=== PATIENT | female | born 1935 | race Caucasian/White ===

== ENCOUNTER → 2018-01-27 | Outpatient (CLI) | payer MEDICARE ==
--- NOTE | 2018-01-28 07:39 | MR ---
EXAMINATION TYPE: MR lumbar spine wo con DATE OF EXAM: 01/27/2018 COMPARISON: NONE HISTORY: Back pain CONTRAST: 0 mL intravenous Gadavist. TECHNIQUE: Multiplanar, multisequence images of the lumbar spine were acquired. FINDINGS: L5-S1: No significant disc bulge or disc herniation. No spinal canal stenosis. No foraminal stenosi s. . L4-L5: No significant disc bulge or disc herniation. No spinal canal stenosis. No foraminal stenosi s. . L3-L4: Mild disc bulging is anterior thecal sac flattening. Facet hypertrophy with mild ligamentum fl avum laxity is present with posterior lateral thecal sac compression. No stenosis is present. Foramen are patent. L2-L3: Broad-based disc bulge has mild anterior thecal sac compression. Facet hypertrophy is present with posterior lateral thecal sac compression. Some lateral canal narrowing is present. No AP spinal canal stenosis is present. Neural foramen are patent L1-L2: Minimal disc bulging with anterior thecal sac flattening is noted. No spinal canal stenosis is present. No foraminal stenosis. . T12-L1: No significant disc bulge or disc herniation. No spinal canal stenosis. No foraminal stenos is. . Cord terminates at the L1-L2 level. Cortical renal cysts are noted bilaterally IMPRESSION: 1. Diffuse minimal disc bulging and disc desiccation throughout the lumbar spine. 2. Mild disc bulge is greatest at L3-4 and L2-3 with mild anterior thecal sac flattening
== END | disposition home or self-care (01) ==
LOC: RADMRIMAIN 12:45
PROVIDERS: ATTEND Family Medicine
DX: M51.16 Intervertebral disc disorders with radiculopathy, lumbar region (principal)
CPT/HCPCS: 72148

== ENCOUNTER 2019-04-16 19:40 | Inpatient (IN) | payer MEDICARE ==
[2019-04-16] MEDS ORDERED: SODIUM CHLORIDE 0.9% 500 ML 500 ML IV STA (20:11)
[2019-04-16] MEDS ORDERED: ONDANSETRON 4 MG/2 ML VIAL IVP STA (20:11)
[2019-04-16] MEDS ORDERED: MORPHINE SULFATE 4 MG/ML SYRINGE IV STA (20:11)
--- NOTE | 2019-04-16 20:32 | ED ---
General Adult HPI - General Chief complaint: Abdominal Pain Stated complaint: Abd pain Time Seen by Provider: 04/16/19 20:07 Source: patient, Caregiver Mode of arrival: wheelchair Limitations: no limitations - History of Present Illness Initial comments: 83 -year-old female presenting with right-sided abdominal pain and right flank pain. Patient's symptoms began today at approximately 4 PM. Patient reports nausea and several episodes vomiting. Denies change in her bowels, no diarrhea, no constipation. No dysuria or hematuria. No fever or chills. No upper abdominal pain. Pain is localized to the right flank and right lower quadrant. No chest pain or dyspnea. - Related Data Home Medications Medication Instructions Recorded Confirmed Ranitidine HCl [Zantac] 150 mg PO DAILY 09/26/14 04/16/19 Ergocalciferol [Vitamin D2 50,000 unit PO FR 04/16/19 04/16/19 (DRISDOL)] Lisinopril [Zestril] 10 mg PO BID 04/16/19 04/16/19 amLODIPine [Norvasc] 5 mg PO DAILY 04/16/19 04/16/19 guaiFENesin [Mucinex] 1,200 mg PO Q12HR 04/16/19 04/16/19 Previous Rx's Medication Instructions Recorded Hydrocodone/Acetaminophen [[place] 1 - 2 each PO Q6HR PRN #40 tab 08/27/15 5-325] Allergies Allergy/AdvReac Type Severity Reaction Status Date / Time Penicillins Allergy Rash/Hives Verified 04/16/19 20:20 Review of Systems ROS Statement: Those systems with pertinent positive or pertinent negative responses have been documented in the HPI. ROS Other: All systems not noted in ROS Statement are negative. Past Medical History Past Medical History: Eye Disorder, GERD/Reflux, Osteoarthritis (OA) Additional Past Medical History / Comment(s): chronic sinus problems. limited mobility. HX LT CATARACT History of Any Multi-Drug Resistant Organisms: None Reported Past Surgical History: Hernia Repair, Hysterectomy, Orthopedic Surgery Additional Past Surgical History / Comment(s): LT CATARACT REMOVED, LT EYE SX. RIGHT HIP FRACTURE (ORIF AT [facility]). KNEE ARTHRO X2. Past Anesthesia/Blood Transfusion Reactions: No Reported Reaction Past Psychological History: No Psychological Hx Reported Smoking Status: Never smoker - Past Family History Son(s) Family Medical History: Cancer General Exam Limitations: no limitations General appearance: alert, in no apparent distress Head exam: Present: atraumatic, normocephalic Eye exam: Present: normal appearance, PERRL ENT exam: Present: normal exam Neck exam: Present: normal inspection. Absent: tenderness, meningismus Respiratory exam: Present: normal lung sounds bilaterally. Absent: respiratory distress, wheezes Cardiovascular Exam: Present: regular rate, normal rhythm GI/Abdominal exam: Present: soft, tenderness. Absent: distended, guarding Extremities exam: Present: normal inspection, normal capillary refill. Absent: pedal edema Back exam: Present: CVA tenderness (R) Neurological exam: Present: alert, oriented X3 Psychiatric exam: Present: normal affect, normal mood Skin exam: Present: warm, dry, intact. Absent: cyanosis, diaphoretic Course Vital Signs 04/16/19 04/16/19 04/16/19 19:57 21:45 22:50 Temperature 98.6 F 98.8 F 99.8 F H Pulse Rate 82 97 89 Respiratory 22 16 16 Rate Blood Pressure 142/73 160/67 146/73 O2 Sat by Pulse 94 L 98 Oximetry 04/17/19 00:00 Temperature Pulse Rate 75 Respiratory 16 Rate Blood Pressure 118/63 O2 Sat by Pulse 94 L Oximetry Medical Decision Making - Medical Decision Making 83-year-old female with right-sided flank pain, right lower abdominal pain. Workup was initiated emergency partner, patient has elevated white blood cell count 15.3, stable hemoglobin, normal kidney function. She hasn't normal lactic acid at 1. Urinalysis shows 31 red cells, 120 white cells, nitrate positive. CT is performed, shows a 4 mm stone at the UVJ with mild hydronephrosis. Given the elevated white count in the patient's age she is admitted for IV antibiotics, IV fluids. Urology will be placed on consult. - Lab Data Result diagrams: 04/16/19 21:10 04/16/19 21:10 Lab Results 04/16/19 04/16/19 04/16/19 Range/Units 21:10 21:10 21:10 WBC 15.3 H (3.8-10.6) k/uL RBC 4.53 (3.80-5.40) m/uL Hgb 13.6 (11.4-16.0) gm/dL Hct 40.6 (34.0-46.0) % MCV 89.7 (80.0-100.0) fL MCH 29.9 (25.0-35.0) pg MCHC 33.3 (31.0-37.0) g/dL RDW 14.5 (11.5-15.5) % Plt Count 208 (150-450) k/uL Neutrophils % 93 % Lymphocytes % 4 % Monocytes % 2 % Eosinophils % 1 % Basophils % 0 % Neutrophils # 14.2 H (1.3-7.7) k/uL Lymphocytes # 0.6 L (1.0-4.8) k/uL Monocytes # 0.3 (0-1.0) k/uL Eosinophils # 0.1 (0-0.7) k/uL Basophils # 0.0 (0-0.2) k/uL PT (9.0-12.0) sec INR (<1.2) APTT (22.0-30.0) sec Sodium 138 (137-145) mmol/L Potassium 4.1 (3.5-5.1) mmol/L Chloride 105 (98-107) mmol/L Carbon Dioxide 25 (22-30) mmol/L Anion Gap 8 mmol/L BUN 23 H (7-17) mg/dL Creatinine 0.92 (0.52-1.04) mg/dL Est GFR (CKD-EPI)AfAm 67 (>60 ml/min/1.73 sqM) Est GFR (CKD-EPI)NonAf 58 (>60 ml/min/1.73 sqM) Glucose 150 H (74-99) mg/dL Plasma Lactic Acid Handy 1.0 (0.7-2.0) mmol/L Calcium 9.5 (8.4-10.2) mg/dL Total Bilirubin 0.5 (0.2-1.3) mg/dL AST 20 (14-36) U/L ALT 9 (9-52) U/L Alkaline Phosphatase 107 (38-126) U/L Total Protein 7.2 (6.3-8.2) g/dL Albumin 4.0 (3.5-5.0) g/dL Amylase 57 (30-110) U/L Lipase 185 (23-300) U/L Urine Color Urine Appearance (Clear) Urine pH (5.0-8.0) Ur Specific [place] (1.001-1.035) Urine Protein (Negative) Urine Glucose (UA) (Negative) Urine Ketones (Negative) Urine Blood (Negative) Urine Nitrite (Negative) Urine Bilirubin (Negative) Urine Urobilinogen (<2.0) mg/dL Ur Leukocyte Esterase (Negative) Urine RBC (0-5) /hpf Urine WBC (0-5) /hpf Ur Squamous Epith Cells (0-4) /hpf Calcium Oxalate Crystal (None) /hpf Urine Bacteria (None) /hpf Urine Mucus (None) /hpf 04/16/19 04/16/19 Range/Units 21:10 23:40 WBC (3.8-10.6) k/uL RBC (3.80-5.40) m/uL Hgb (11.4-16.0) gm/dL Hct (34.0-46.0) % MCV (80.0-100.0) fL MCH (25.0-35.0) pg MCHC (31.0-37.0) g/dL RDW (11.5-15.5) % Plt Count (150-450) k/uL Neutrophils % % Lymphocytes % % Monocytes % % Eosinophils % % Basophils % % Neutrophils # (1.3-7.7) k/uL Lymphocytes # (1.0-4.8) k/uL Monocytes # (0-1.0) k/uL Eosinophils # (0-0.7) k/uL Basophils # (0-0.2) k/uL PT 9.4 (9.0-12.0) sec INR 0.9 (<1.2) APTT 21.6 L (22.0-30.0) sec Sodium (137-145) mmol/L Potassium (3.5-5.1) mmol/L Chloride (98-107) mmol/L Carbon Dioxide (22-30) mmol/L Anion Gap mmol/L BUN (7-17) mg/dL Creatinine (0.52-1.04) mg/dL Est GFR (CKD-EPI)AfAm (>60 ml/min/1.73 sqM) Est GFR (CKD-EPI)NonAf (>60 ml/min/1.73 sqM) Glucose (74-99) mg/dL Plasma Lactic Acid Handy (0.7-2.0) mmol/L Calcium (8.4-10.2) mg/dL Total Bilirubin (0.2-1.3) mg/dL AST (14-36) U/L ALT (9-52) U/L Alkaline Phosphatase (38-126) U/L Total Protein (6.3-8.2) g/dL Albumin (3.5-5.0) g/dL Amylase (30-110) U/L Lipase (23-300) U/L Urine Color Yellow Urine Appearance Cloudy H (Clear) Urine pH 7.5 (5.0-8.0) Ur Specific [place] >1.050 H (1.001-1.035) Urine Protein Trace H (Negative) Urine Glucose (UA) Negative (Negative) Urine Ketones Negative (Negative) Urine Blood Moderate H (Negative) Urine Nitrite Positive H (Negative) Urine Bilirubin Negative (Negative) Urine Urobilinogen <2.0 (<2.0) mg/dL Ur Leukocyte Esterase Large H (Negative) Urine RBC 31 H (0-5) /hpf Urine WBC 120 H (0-5) /hpf Ur Squamous Epith Cells 1 (0-4) /hpf Calcium Oxalate Crystal Rare H (None) /hpf Urine Bacteria Rare H (None) /hpf Urine Mucus Rare H (None) /hpf Disposition Clinical Impression: UTI (urinary tract infection), Renal calculus, right Disposition: ADMITTED IP TO THIS HOSP Condition: Stable Is patient prescribed a controlled substance at d/c from ED?: No Referrals: Ravin Hensley MD [Primary Care Provider] - 1-2 days Decision to Admit Reason: Admit from EC Decision Date: 04/17/19 Decision Time: 00:25
[2019-04-16 21:21] LABS: Basophils % (A) 0 %; Eosinophils # (A) 0.1 k/uL (0-0.7); Eosinophils % (A) 1 %; HCT 40.6 % (34.0-46.0); HGB 13.6 gm/dL (11.4-16.0); Lymphocytes # (A) 0.6 k/uL (1.0-4.8); Lymphocytes % (A) 4 %; MCH 29.9 pg (25.0-35.0); MCHC 33.3 g/dL (31.0-37.0); MCV 89.7 fL (80.0-100.0); Mean Platelet Volume 7.6; Monocytes # (A) 0.3 k/uL (0-1.0); Monocytes % (A) 2 %; Neutrophils # (A) 14.2 k/uL (1.3-7.7); Neutrophils % (A) 93 %; Platelet Count 208 k/uL (150-450); RBC 4.53 m/uL (3.80-5.40); RDW 14.5 % (11.5-15.5); WBC 15.3 k/uL (3.8-10.6)
--- NOTE | 2019-04-16 21:33 | XR ---
EXAMINATION TYPE: XR KUB DATE OF EXAM: 04/16/2019 COMPARISON: NONE HISTORY: Right lower quadrant pain TECHNIQUE: 2 views supine FINDINGS: There is no sign of intestinal obstruction or pneumoperitoneum. Fecal pattern is normal. Th ere is right hip prosthesis. There are no pathologic calcifications over the kidneys. IMPRESSION: Nonacute abdomen.
[2019-04-16 21:39] LABS: Calcium 9.5 mg/dL (8.4-10.2); Potassium 4.1 mmol/L (3.5-5.1); Total Bilirubin 0.5 mg/dL (0.2-1.3); Total Protein 7.2 g/dL (6.3-8.2)
[2019-04-16 21:42] LABS: INR 0.9 (<1.2); Prothrombin Time 9.4 sec (9.0-12.0)
[2019-04-16 21:48] LABS: Partial Thromboplastin Time 21.6 sec (22.0-30.0)
--- NOTE | 2019-04-16 22:28 | CT ---
EXAM: CT Abdomen and Pelvis With Intravenous Contrast CLINICAL HISTORY: Right lower quadrant pain TECHNIQUE: Axial computed tomography images of the abdomen and pelvis with intravenous contrast. CTDI is 0.085, 0.085, 14.2, 13 mGy and DLP is 1285 mGy-cm. This CT exam was performed using one or more of the following dose reduction techniques: automated exposure control, adjustment of the mA and/or kV according to patient size, and/or use of iterative reconstruction technique. COMPARISON: No relevant prior studies available. FINDINGS: Lung bases: Bibasilar atelectasis and or scarring. Calcifications of coronary arteries and aortic valve leaflets. ABDOMEN: Liver: Low-density lesion within the left hepatic lobe measuring up to 10 mm, which is nonspecific. Gallbladder and bile ducts: Distended gallbladder with gallstones. Pancreas: Unremarkable. Spleen: Unremarkable. Adrenals: Unremarkable. Kidneys and ureters: Suspect 4 mm calculus at the right UVJ which causes mild hydroureteronephrosis and delayed nephrogram. Note findings are limited secondary to artifact from right hip arthroplasty. Additional nonobstructing calculi within the right kidney. Probable cysts within both kidneys. No hydronephrosis. Stomach and bowel: Noninflamed colonic diverticulosis. PELVIS: Appendix: Appendix is unremarkable. Bladder: Unremarkable. Reproductive: Uterus is surgically absent. ABDOMEN and PELVIS: Intraperitoneal space: Unremarkable. Bones/joints: Total right hip arthroplasty. No acute fracture. No dislocation. Soft tissues: Unremarkable. Vasculature: Vascular calcifications. No abdominal aortic aneurysm. Lymph nodes: Unremarkable. IMPRESSION: 1. Distended gallbladder with gallstones. No CT evidence of acute cholecystitis. 2. Suspect 4 mm calculus at the right UVJ which causes mild hydroureteronephrosis and delayed nephrogram. Note findings are limited secondary to artifact from right hip arthroplasty. 3. Additional nonobstructing calculi within the right kidney.
[2019-04-16] MEDS ORDERED: KETOROLAC 30 MG/ML 1 ML VIAL IVP STA (22:32)
[2019-04-16 23:54] LABS: Appearance,Urine Cloudy (Clear); Bacteria,Urine Rare /hpf; Bilirubin,Urine Negative (Negative); Blood,Urine Moderate (Negative); Calcium Oxalate Crystals,Urine Rare /hpf; Color,Urine Yellow; Glucose,Urine (UA) Negative (Negative); Ketones,Urine Negative (Negative); Leukocyte Esterase,Urine Large (Negative); Mucus,Urine Rare /hpf; Nitrite,Urine Positive (Negative); PH, Urine 7.5 (5.0-8.0); Protein,Urine Trace (Negative); RBC,Urine 31 /hpf (0-5); Squamous Epithelial Cell,Urine 1 /hpf (0-4); Urobilinogen,Urine <2.0 mg/dL (<2.0); WBC,Urine 120 /hpf (0-5)
[2019-04-16 23:55] LABS: Specific Gravity,Urine >1.050 (1.001-1.035)
[2019-04-17] MEDS ORDERED: SODIUM CHLORIDE 0.9% 500 ML 500 ML IV ONE (00:01)
[2019-04-17] MEDS ORDERED: LEVOFLOXACIN 500MG-D5W PMX 500 MG in DEXTROSE/WATER 1 100ML.BAG IVPB STA (00:19)
[2019-04-17] MEDS ORDERED: TAMSULOSIN 0.4 MG CAP.ER.24H PO STA (00:19)
[2019-04-17] MEDS ORDERED: MORPHINE SULFATE 4 MG/ML SYRINGE IV PRN (00:20)
[2019-04-17] MEDS ORDERED: ACETAMINOPHEN TAB 325 MG TAB PO PRN (00:20)
[2019-04-17] MEDS ORDERED: NALOXONE 0.4 MG/ML 1 ML VIAL IV PRN (00:20)
[2019-04-17] MEDS: SODIUM CHLORIDE 0.9% 1,000 ML IV SCH ×2 (01:12→13:39)
[2019-04-17] MEDS ORDERED: HYDROcodone/APAP 5-325MG 1 EACH TAB PO PRN (12:44)
--- NOTE | 2019-04-17 16:47 | P.GSCN ---
History of Present Illness Consult date: 04/17/19 Reason for Consult: Right ureteral calculus History of present illness: The patient is an 83-year-old female who developed discomfort in her right flank and right lower quadrant associated with nausea and urgency to void yesterday. The pain worsened and she came to the emergency room where she was evaluated later in the day. She was noted to have microscopic hematuria and pyuria. Computed tomography scan of the abdomen and pelvis with IV contrast identified a 2.5 x 4 mm calculus in the right ureter which appeared to be adjacent or within the bladder wall. The patient was admitted for further evaluation and pain control. She has remained afebrile. She has been started on Levaquin. She says that she no longer has the urge to void and her flank and right lower quadrant pain almost gone. She has experienced no gross hematuria or dysuria. The patient has no previous history of urolithiasis. She believes she may have had a urinary tract infection 2 or 3 years ago. Review of Systems - Constitutional Denies chills, Denies fever - Gastrointestinal Reports as per HPI - Genitourinary Genitourinary: Reports as per HPI Past Medical History Past Medical History: GERD/Reflux, Hypertension Additional Past Medical History / Comment(s): Chronic sinus problems, limited mobility (wheelchair) pt states d/t surgical complications. History of Any Multi-Drug Resistant Organisms: None Reported Past Surgical History: Bladder Surgery (Cystocele 2), Hernia Repair, Hysterectomy, Orthopedic Surgery Additional Past Surgical History / Comment(s): R leg fracture with surgery/hardw are-since removed, R hip fx with ORIF, R knee arthroscopies, abdominal hernia repair, ESS/septoplasty, bladder suspension. Past Anesthesia/Blood Transfusion Reactions: No Reported Reaction Smoking Status: Never smoker - Past Family History Son(s) Family Medical History: Cancer Father Family Medical History: COPD Mother Family Medical History: No Reported History Additional Family Medical History / Comment(s): Mother was healthy Medications and Allergies Home Medications Medication Instructions Recorded Confirmed Type Ranitidine HCl [Zantac] 150 mg PO DAILY 09/26/14 04/16/19 History Hydrocodone/Acetaminophen [[place] 1 - 2 each PO Q6HR PRN #40 tab 08/27/15 04/16/19 Rx 5-325] Ergocalciferol [Vitamin D2 50,000 unit PO FR 04/16/19 04/16/19 History (DRISDOL)] Lisinopril [Zestril] 10 mg PO BID 04/16/19 04/16/19 History amLODIPine [Norvasc] 5 mg PO DAILY 04/16/19 04/16/19 History guaiFENesin [Mucinex] 1,200 mg PO Q12HR 04/16/19 04/16/19 History Allergies Allergy/AdvReac Type Severity Reaction Status Date / Time Penicillins Allergy Rash/Hives Verified 04/16/19 20:20 Surgical - Exam Vital Signs Temp Pulse Resp BP 98.6 F 82 22 142/73 04/16/19 19:57 04/16/19 19:57 04/16/19 19:57 04/16/19 19:57 - General well developed, well nourished, no distress, obese - ENT no hearing loss - Neck no masses, no lymphadectomy - Respiratory normal respiratory effort - Abdomen Abdomen: soft, non tender, no organomegaly Results - Labs 04/16/19 21:10 04/16/19 21:10 Abnormal Lab Results - Last 24 Hours (Table) 04/16/19 04/16/19 04/16/19 Range/Units 21:10 21:10 21:10 WBC 15.3 H (3.8-10.6) k/uL Neutrophils # 14.2 H (1.3-7.7) k/uL Lymphocytes # 0.6 L (1.0-4.8) k/uL APTT 21.6 L (22.0-30.0) sec BUN 23 H (7-17) mg/dL Glucose 150 H (74-99) mg/dL Urine Appearance (Clear) Ur Specific [place] (1.001-1.035) Urine Protein (Negative) Urine Blood (Negative) Urine Nitrite (Negative) Ur Leukocyte Esterase (Negative) Urine RBC (0-5) /hpf Urine WBC (0-5) /hpf Calcium Oxalate Crystal (None) /hpf Urine Bacteria (None) /hpf Urine Mucus (None) /hpf 04/16/19 Range/Units 23:40 WBC (3.8-10.6) k/uL Neutrophils # (1.3-7.7) k/uL Lymphocytes # (1.0-4.8) k/uL APTT (22.0-30.0) sec BUN (7-17) mg/dL Glucose (74-99) mg/dL Urine Appearance Cloudy H (Clear) Ur Specific [place] >1.050 H (1.001-1.035) Urine Protein Trace H (Negative) Urine Blood Moderate H (Negative) Urine Nitrite Positive H (Negative) Ur Leukocyte Esterase Large H (Negative) Urine RBC 31 H (0-5) /hpf Urine WBC 120 H (0-5) /hpf Calcium Oxalate Crystal Rare H (None) /hpf Urine Bacteria Rare H (None) /hpf Urine Mucus Rare H (None) /hpf Microbiology - Last 24 Hours (Table) 04/16/19 23:40 Urine Culture - Preliminary Urine,Voided Diabetes panel 04/16/19 Range/Units 21:10 Sodium 138 (137-145) mmol/L Potassium 4.1 (3.5-5.1) mmol/L Chloride 105 (98-107) mmol/L Carbon Dioxide 25 (22-30) mmol/L BUN 23 H (7-17) mg/dL Creatinine 0.92 (0.52-1.04) mg/dL Glucose 150 H (74-99) mg/dL Calcium 9.5 (8.4-10.2) mg/dL AST 20 (14-36) U/L ALT 9 (9-52) U/L Alkaline Phosphatase 107 (38-126) U/L Total Protein 7.2 (6.3-8.2) g/dL Albumin 4.0 (3.5-5.0) g/dL Calcium panel 04/16/19 Range/Units 21:10 Calcium 9.5 (8.4-10.2) mg/dL Albumin 4.0 (3.5-5.0) g/dL Pituitary panel 04/16/19 Range/Units 21:10 Sodium 138 (137-145) mmol/L Potassium 4.1 (3.5-5.1) mmol/L Chloride 105 (98-107) mmol/L Carbon Dioxide 25 (22-30) mmol/L BUN 23 H (7-17) mg/dL Creatinine 0.92 (0.52-1.04) mg/dL Glucose 150 H (74-99) mg/dL Calcium 9.5 (8.4-10.2) mg/dL Adrenal panel 04/16/19 Range/Units 21:10 Sodium 138 (137-145) mmol/L Potassium 4.1 (3.5-5.1) mmol/L Chloride 105 (98-107) mmol/L Carbon Dioxide 25 (22-30) mmol/L BUN 23 H (7-17) mg/dL Creatinine 0.92 (0.52-1.04) mg/dL Glucose 150 H (74-99) mg/dL Calcium 9.5 (8.4-10.2) mg/dL Total Bilirubin 0.5 (0.2-1.3) mg/dL AST 20 (14-36) U/L ALT 9 (9-52) U/L Alkaline Phosphatase 107 (38-126) U/L Total Protein 7.2 (6.3-8.2) g/dL Albumin 4.0 (3.5-5.0) g/dL - Imaging CT scan - abdomen: image reviewed Assessment and Plan (1) Right ureteral calculus Narrative/Plan: The patient had a 2.5 x 4 mm calculus at the most distal portion of the right ureter at the time of her computed tomography scan yesterday. Her pain and urgency have improved and it is possible that she has passed the calculus into her bladder. It's unclear whether the patient had a urinary tract infection however she did not have any symptoms of infection as far as dysuria and she has remained afebrile. If the patient remains comfortable she could be discharged on an oral antibiotic running results of her urine culture. The likelihood of spontaneous passage of a calculus this size and location is over 95% and in view of this even if she continues to have some discomfort no urologic intervention is planned in the immediate future. Current Visit: Yes Status: Acute Code(s): N20.1 - CALCULUS OF URETER SNOMED Code(s): 76256607 (2) Renal calculus, right Current Visit: Yes Status: Acute Code(s): N20.0 - CALCULUS OF KIDNEY SNOMED Code(s): 21658560
[2019-04-17] MEDS: guaiFENesin 600 MG TABLET.ER PO SCH (21:48)
[2019-04-17] MEDS: ENOXAPARIN 40 MG/0.4 ML SYRINGE SQ SCH (21:48)
[2019-04-17] MEDS: LISINOPRIL 10 MG TAB PO SCH (21:48)
--- NOTE | 2019-04-17 23:17 | HP ---
HISTORY AND PHYSICAL DATE OF ADMISSION: 04/17/2019 DATE OF SERVICE: 04/17/2019 PRESENTING COMPLAINT: Right flank pain. HISTORY OF PRESENTING COMPLAINT: This is a very pleasant 83-year-old patient of Dr. Hensley from [place]. Chronic stable medical conditions include GERD, hypertension, chronic sinus trouble, medical debility. Normally she uses a wheelchair. The patient around 5 p.m. started having severe right abdominal pain that was stabbing and sharp, to the point she could not walk. There was no fever or chills. No nausea or vomiting. Appetite is maintained. Pain was localized and did not radiate down. Patient presented to the ER. The patient was found to have a stone in the right UV junction with mild hydronephrosis. Admitted for the same. Urology was consulted. REVIEW OF SYSTEMS: CONSTITUTIONAL: Tired. HEENT: None. RESPIRATORY: None. CARDIOVASCULAR: None. GASTROINTESTINAL: As above. GENITOURINARY: None. MUSCULOSKELETAL: Arthritic pain in the joints. DERMATOLOGICAL: None. HEMATOLOGICAL: None. LYMPHATICS: None. PSYCHIATRY: None. NEUROLOGICAL: None. PAST MEDICAL HISTORY: 1. GERD. 2. Hypertension. 3. Chronic sinus trouble. 4. Limited mobility. PAST SURGICAL HISTORY: 1. Bladder surgery. 2. Hernia repair. 3. Hysterectomy. 4. Right leg fracture with surgery; hardware since removed. 5. Right hip fracture with ORIF. 6. Right knee arthroscopy. 7. Abdominal hernia repair. 8. Bladder suspension surgery. SOCIAL HISTORY: The patient normally uses a wheelchair to get about. Lives at [facility]. No smoking. No alcohol. FAMILY HISTORY: Cancer, type unknown. HOME MEDICATIONS: 1. Mucinex 1200 mg q.12. 2. Norvasc 5 mg p.o. daily. 3. Zantac 150 mg p.o. daily. 4. Zestril 10 mg b.i.d. 5. [place] 5 one to two tablets q.6 p.r.n. 6. Vitamin D2 50,000 units on Monday. ALLERGIES: PENICILLIN. PHYSICAL EXAMINATION: VITAL SIGNS ON PRESENTATION: Temperature 99.8, pulse 89, respiration 16, blood pressure 126/73, pulse ox 98% on room air. GENERAL APPEARANCE: Average build. Lying in bed, not in distress. EYES: Pupils equal. Conjunctivae normal. HEENT: External appearance of nose and ears normal. Oral cavity normal. NECK: JVD not raised. Mass not palpable. RESPIRATORY: Effort normal. LUNGS: Fair air entry. CARDIOVASCULAR: First and second sounds normal. No edema. ABDOMEN: Soft. Minimal right flank tenderness. No guarding or rigidity. Liver and spleen not palpable. LYMPHATIC: No lymph node palpable in neck or axillae. PSYCHIATRY: Alert and oriented x3. Mood and affect normal. NEUROLOGICAL: Pupils equal. Cranial nerves grossly intact. Power and sensation grossly intact. INVESTIGATIONS: White count 15.3, hemoglobin 13.6, potassium 4.1, BUN 23, creatinine 0.92. UA positive for leukocyte esterase, nitrite. CT scan of the abdomen and pelvis shows a 4 mm calculus at the right UV junction causing mild hydroureteronephrosis and also non-obstructing calculi within the right kidney. ASSESSMENT: 1. Acute obstructive 4 mm calculus in the right UV junction causing mild hydroureteronephrosis. Would normally expect this to pass on its own. Clinically patient is already looking a bit better since her initial presentation. 2. Acute urinary tract infection, probably an element of mild pyelonephritis, with infected-appearing urine. 3. Gastroesophageal reflux disease. 4. Essential hypertension. PLAN: Patient was put on IV fluids. Urology was consulted. Home medications are resumed. Lovenox for DVT prophylaxis. Care was discussed with the patient. There is no need for antibiotics. Hopefully patient can be discharged in the next 24 hours. MMODL / IJN: [id number] /
[2019-04-17] MEDS: LACTATED RINGERS 1,000 ML IV SCH (23:41)
[2019-04-18] MEDS: LACTATED RINGERS 1,000 ML IV SCH ×2 (09:25→18:30)
[2019-04-18] MEDS: LISINOPRIL 10 MG TAB PO SCH ×2 (09:26→21:03)
[2019-04-18] MEDS: ENOXAPARIN 40 MG/0.4 ML SYRINGE SQ SCH (09:26)
[2019-04-18] MEDS: guaiFENesin 600 MG TABLET.ER PO SCH ×2 (09:26→21:03)
[2019-04-18] MEDS: FAMOTIDINE 20 MG TAB PO SCH (09:26)
[2019-04-18] MEDS: amLODIPine 5 MG TAB PO SCH (09:26)
--- NOTE | 2019-04-18 12:13 | P.GSCN ---
History of Present Illness Consult date: 04/18/19 History of present illness: CHIEF COMPLAINT: Abdominal pain HISTORY OF PRESENT ILLNESS: The patient is a 83 year old female resents with history of multiple genitourinary surgeries comes in to the hospital for acute right lower quadrant abdominal pain over several days. Sharp in nature and radiates to her bladder. She has history of kidney stones. No reports of right upper quadrant abdominal pain. She has no elevated liver enzymes. She denies atypical chest pain or epigastric abdominal pain. She had a CT of abdomen and pelvis demonstrating gallstones. General surgery is consulted for her findings of gallstones. PAST MEDICAL HISTORY: See list. PAST SURGICAL HISTORY: See list. MEDICATIONS: See list. ALLERGIES: See list. SOCIAL HISTORY: No illicit drug use FAMILY HISTORY: No reports of Crohn's disease or inflammatory bowel disease REVIEW OF ORGAN SYSTEMS: CONSTITUTIONAL: No fevers or chills. No recent weight loss. EYES: She wears glasses. HEENT: No nosebleeds. No difficulty swallowing. RESPIRATORY: No pneumonia. Denies any troubles with breathing or dyspnea on exertion. CARDIOVASCULAR: Denies any chest pain, palpitations, or recent heart attacks. GASTROINTESTINAL: Denies fatty food intolerance. Denies change in bowel habits and gas bloat. GENITOURINARY: Has blood in urine and increased urinary frequency. NEUROLOGICAL: Denies any numbness or tingling along the distal extremities. No seizure disorders or headaches. MUSCULOSKELETAL: Has back pain, stiffness or joint arthritis. SKIN: No current skin cancer. No rash. PSYCHIATRIC: Denies current depression or suicidal thoughts. ENDOCRINE: Denies current thyroid disorders. Denies any blood sugar glucose intolerance. HEME/LYMPHATIC: Denies any lumps and bumps around the neck. No recent deep venous thrombosis. ALLERGY/IMMUNOLOGY: No immunoglobulin therapy. No immune deficiencies. BREAST: Denies current breast lumps, pain or nipple discharge. PHYSICAL EXAM: VITALS: Reviewed CONSTITUTIONAL: Well developed and in no acute distress. EYES: Conjuctivae without sclera icterus. Pupils are equally round and reactive to light. Extraocular movements grossly intact. HEAD, EARS, NOSE, THROAT: Moist buccal mucosa. Head is atraumatic, normocephalic. Hears conversational speech. No nasal drainage. NECK: Supple. No JV distention. No thyroidomegaly. RESPIRATORY: Non-labored respirations and equal bilateral excursions. No gross wheezes. CARDIOVASCULAR: Regular rate and rhythm. Extremities without moderate edema. Palpable 2+ radial pulses. ABDOMEN: No hepatomegaly. Soft. Nondistended. No right upper quadrant or epigastric tenderness. Tender along the pubis. LYMPH: No neck lymphadenopathy. No axillary lymphadenopathy. MUSCULOSKELETAL: Range of motion bilateral upper extremities within normal limits. Nail and fingers with good capillary refill. SKIN: Warm and well perfused with good skin turgor. NEUROLOGIC: Cranial nerves I through XII grossly intact. Sensation upper and extremities intact. No focal or lateralizing signs. PSYCH: Appropriate affect. Alert and oriented to person, place and time. CLINCAL LABS: Reviewed, WBC elevated RADIOLOGY: Report reviewed for CT scan with gallstones and right kidney defect IMAGING: Independently reviewed with small gallstones along the gallbladder and gallbladder distention. ASSESSMENT: 1. Urinary tract infection, urosepsis 2. Gallstones, asymptomatic PLAN: 1. All studies reviewed and she is asymptomatic of her gallbladder stones. 2. Diet as tolerated 3. Management of her UTI with antibiotics 4. Urology consultation reviewed 5. No acute surgical intervention needed for her incidental findings of gallstones Past Medical History Past Medical History: GERD/Reflux, Hypertension Additional Past Medical History / Comment(s): Chronic sinus problems, limited mobility (wheelchair) pt states d/t surgical complications. History of Any Multi-Drug Resistant Organisms: None Reported Past Surgical History: Bladder Surgery (Cystocele 2), Hernia Repair, Hysterectomy, Orthopedic Surgery Additional Past Surgical History / Comment(s): R leg fracture with kerwin mary/hardware-since removed, R hip fx with ORIF, R knee arthroscopies, abdominal hernia repair, ESS/septoplasty, bladder suspension. Past Anesthesia/Blood Transfusion Reactions: No Reported Reaction Smoking Status: Never smoker - Past Family History Son(s) Family Medical History: Cancer Father Family Medical History: COPD Mother Family Medical History: No Reported History Additional Family Medical History / Comment(s): Mother was healthy Medications and Allergies Home Medications Medication Instructions Recorded Confirmed Type Ranitidine HCl [Zantac] 150 mg PO DAILY 09/26/14 04/16/19 History Hydrocodone/Acetaminophen [[place] 1 - 2 each PO Q6HR PRN #40 tab 08/27/15 04/16/19 Rx 5-325] Ergocalciferol [Vitamin D2 50,000 unit PO FR 04/16/19 04/16/19 History (DRISDOL)] Lisinopril [Zestril] 10 mg PO BID 04/16/19 04/16/19 History amLODIPine [Norvasc] 5 mg PO DAILY 04/16/19 04/16/19 History guaiFENesin [Mucinex] 1,200 mg PO Q12HR 04/16/19 04/16/19 History Cephalexin [Keflex] 250 mg PO Q6HR #28 cap 04/19/19 Rx Allergies Allergy/AdvReac Type Severity Reaction Status Date / Time Penicillins Allergy Rash/Hives Verified 04/16/19 20:20 Surgical - Exam Vital Signs Temp Pulse Resp BP 98.6 F 82 22 142/73 04/16/19 19:57 04/16/19 19:57 04/16/19 19:57 04/16/19 19:57 Results - Labs 04/19/19 07:28 04/19/19 07:28 Microbiology - Last 24 Hours (Table) 04/16/19 23:40 Urine Culture - Preliminary Urine,Voided Gram Neg Bacilli Proteus spec 04/17/19 00:00 Blood Culture - Preliminary Blood No Growth after 24 hours - Imaging CT scan - abdomen: report reviewed, image reviewed CT scan - pelvis: report reviewed, image reviewed Assessment and Plan (1) 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 Current Visit: Yes Status: Acute Code(s): I13.10 - HYP HRT & CHR KDNY DIS W/O HRT FAIL, W STG 1-4/UNSP CHR KDNY; N18.2 - CHRONIC KIDNEY DISEASE, STAGE 2 (MILD) SNOMED Code(s): 07351141789266 (2) Wheelchair bound Current Visit: Yes Status: Acute Code(s): Z99.3 - DEPENDENCE ON WHEELCHAIR SNOMED Code(s): 614051467 (3) Renal calculus, right Current Visit: Yes Status: Acute Code(s): N20.0 - CALCULUS OF KIDNEY SNOMED Code(s): 33907691 (4) Right ureteral calculus Current Visit: Yes Status: Acute Code(s): N20.1 - CALCULUS OF URETER SNOMED Code(s): 32565330 (5) UTI (urinary tract infection) Current Visit: Yes Status: Acute Code(s): N39.0 - URINARY TRACT INFECTION, SITE NOT SPECIFIED SNOMED Code(s): 05015539
[2019-04-18] MEDS: DOCUSATE 100 MG CAP PO SCH (21:03)
[2019-04-19] MEDS: LACTATED RINGERS 1,000 ML IV SCH (05:50)
--- NOTE | 2019-04-19 06:51 | PN ---
PROGRESS NOTE DATE OF SERVICE: 04/18/2019 PRESENTING COMPLAINT: Right flank pain. INTERVAL HISTORY: This patient presented with right UV junction stone causing hydronephrosis. Feeling better today. Pain is much improved. Also being treated for UTI. Overall feeling better. Tolerating some diet. REVIEW OF SYSTEMS: Done for constitutional, cardiovascular, GI, pulmonary; relevant findings as above. CURRENT MEDICATIONS: Current medications are reviewed that include IV ceftriaxone. PHYSICAL EXAMINATION: On examination, temperature 98.4, pulse 72, respiration 16, blood pressure 137/70, pulse ox 95% on room air. GENERAL APPEARANCE: Sitting up, feeling better. EYES: Pupils equal. Conjunctivae normal. NECK: JVD not raised. Mass not palpable. RESPIRATORY: Effort normal. LUNGS: Are clear. CARDIOVASCULAR: First and second sounds normal. No edema. ABDOMEN: Soft, nontender. Liver and spleen not palpable. PSYCHIATRY: Alert and oriented x3. Mood and affect normal. INVESTIGATIONS: Urine cultures positive for gram-negative bacilli, Proteus species. Blood cultures are pending. ASSESSMENT: 1. Acute obstructive 4 mm calculus in the right UV junction causing mild hydronephrosis causing acute urinary tract infection with pyelonephritis with urine cultures growing gram-negative bacilli. 2. Gastroesophageal reflux disease. 3. Essential hypertension. 4. Gallstones, asymptomatic. PLAN: Continue current medication and treatment. IV fluids, antibiotics. Await cultures to be finalized. Hoping patient can be discharged home in next 24 hours. MMODL / IJN: [id number] /
[2019-04-19 07:47] LABS: Basophils % (A) 0 %; Eosinophils # (A) 0.1 k/uL (0-0.7); Eosinophils % (A) 2 %; HCT 37.1 % (34.0-46.0); HGB 12.3 gm/dL (11.4-16.0); Lymphocytes % (A) 13 %; MCH 29.9 pg (25.0-35.0); MCHC 33.2 g/dL (31.0-37.0); Mean Platelet Volume 7.7; Monocytes # (A) 0.4 k/uL (0-1.0); Monocytes % (A) 6 %; Neutrophils % (A) 78 %; Platelet Count 205 k/uL (150-450); RBC 4.12 m/uL (3.80-5.40); RDW 14.5 % (11.5-15.5); WBC 7.7 k/uL (3.8-10.6)
[2019-04-19 07:56] LABS: ALT 8 U/L (9-52); AST 16 U/L (14-36); Albumin 3.4 g/dL (3.5-5.0); Alkaline Phosphatase 76 U/L (38-126); Anion Gap 7 mmol/L; Blood Urea Nitrogen 12 mg/dL (7-17); Calcium 9.1 mg/dL (8.4-10.2); Carbon Dioxide 24 mmol/L (22-30); Chloride 108 mmol/L (98-107); Glucose 95 mg/dL (74-99); Sodium 139 mmol/L (137-145); Total Bilirubin 0.6 mg/dL (0.2-1.3); Total Protein 6.4 g/dL (6.3-8.2)
[2019-04-19 08:40] VITALS: BP 148/75; PULSE 64; RESP 18; TEMP 98.6
[2019-04-19] MEDS ORDERED: ERGOCALCIFEROL 50,000 UNIT CAP PO SCH (09:00)
[2019-04-19] MEDS: LISINOPRIL 10 MG TAB PO SCH (09:51)
[2019-04-19] MEDS: ENOXAPARIN 40 MG/0.4 ML SYRINGE SQ SCH (09:51)
[2019-04-19] MEDS: DOCUSATE 100 MG CAP PO SCH (09:51)
[2019-04-19] MEDS: guaiFENesin 600 MG TABLET.ER PO SCH (09:51)
[2019-04-19] MEDS: FAMOTIDINE 20 MG TAB PO SCH (09:53)
[2019-04-19] MEDS: amLODIPine 5 MG TAB PO SCH (10:04)
--- NOTE | 2019-04-19 10:59 | P.PN ---
Subjective Progress Note Date: 04/19/19 CHIEF COMPLAINT: Abdominal pain HISTORY OF PRESENT ILLNESS: The patient is a 83 year old female presented with acute right lower quadrant abdominal pain over several days with kidney stones. Patient is on the commode. She denies any epigastric or right upper quadrant abdominal pain. In fact her abdominal pain has improved. ROS: No nausea or vomiting. No fevers or chills. No chest pain. PHYSICAL EXAM: VITALS: Reviewed CONSTITUTIONAL: Well developed and in no acute distress. EYES: Conjuctivae without sclera icterus. Pupils are equally round and reactive to light. Extraocular movements grossly intact. HEAD, EARS, NOSE, THROAT: Moist buccal mucosa. Head is atraumatic, normocephalic. Hears conversational speech. No nasal drainage. NECK: Supple. No JV distention. No thyroidomegaly. RESPIRATORY: Non-labored respirations and equal bilateral excursions. No gross wheezes. CARDIOVASCULAR: Regular rate and rhythm. Extremities without moderate edema. Palpable 2+ radial pulses. ABDOMEN: No hepatomegaly. Soft. Nondistended. No right upper quadrant or epigastric tenderness. Tender along the pubis. LYMPH: No neck lymphadenopathy. No axillary lymphadenopathy. MUSCULOSKELETAL: Range of motion bilateral upper extremities within normal limits. Nail and fingers with good capillary refill. SKIN: Warm and well perfused with good skin turgor. NEUROLOGIC: Cranial nerves I through XII grossly intact. Sensation upper and extremities intact. No focal or lateralizing signs. PSYCH: Appropriate affect. Alert and oriented to person, place and time. CLINCAL LABS: Reviewed, WBC normal ASSESSMENT: 1. Urinary tract infection, urosepsis 2. Gallstones, asymptomatic PLAN: 1. Patient cleared from a surgical standpoint for discharge. 2. May follow up as outpatient. Objective - Vital Signs Vital signs: Vital Signs Temp 98.6 F 04/19/19 07:10 Pulse 64 04/19/19 07:10 Resp 18 04/19/19 07:10 BP 148/75 04/19/19 07:10 Pulse Ox 94 L 04/19/19 07:10 Intake & Output 04/18/19 04/19/19 04/19/19 18:59 06:59 18:59 Intake Total 1220 590 Output Total 700 300 Balance 520 290 Intake: Intake, IV Titration 800 Amount Lactated Ringers 1,000 ml 800 @ 100 mls/hr IV .Q10H [facility] Rx#:[id number] Oral 420 590 Output: Urine 500 300 Post Void Residual 200 Other: Voiding Method Bedside Commode Bedside Commode Bedside Commode # Voids 2 - Labs CBC & Chem 7: 04/19/19 07:28 04/19/19 07:28 Labs: Abnormal Lab Results - Last 24 Hours (Table) 04/19/19 Range/Units 07:28 Chloride 108 H (98-107) mmol/L ALT 8 L (9-52) U/L Albumin 3.4 L (3.5-5.0) g/dL Microbiology - Last 24 Hours (Table) 04/17/19 00:00 Blood Culture - Preliminary Blood No Growth after 48 hours 04/16/19 23:40 Urine Culture - Preliminary Urine,Voided Gram Neg Bacilli Proteus spec
--- NOTE | 2019-04-20 05:07 | DS ---
DISCHARGE SUMMARY DATE OF ADMISSION: 04/17/2019 DATE OF DISCHARGE: 04/19/2019 FINAL DIAGNOSES: 1. Acute obstructive 4 mm calculus on the right UV junction causing hydronephrosis causing urinary tract infection with pyelonephritis with urine cultures growing Klebsiella pneumoniae and Proteus mirabilis. 2. Gastroesophageal reflux disease. 3. Essential hypertension. 4. Gallstones, asymptomatic. HOSPITAL COURSE: This patient presented with pain in the right flank, rather severe resulting in secondary pyelonephritis, acute UTI with cultures positive for above organisms. The patient is given IV fluids, resolved. Also given IV antibiotics. Doing much better this morning. PHYSICAL EXAMINATION: Temperature 98.6, pulse 54, respiratory 18, blood pressure 140/75. ABDOMEN: Soft, nontender. LUNGS: Fair air entry. INVESTIGATIONS: White count 7.7, BUN and creatinine is normal. Microbiology for urine growing Klebsiella pneumoniae and Proteus mirabilis. CONSULTATION: Dr. Lindsey from Urology and Dr. Wu from General surgery. The patient has gallstones that are asymptomatic. Not for any further intervention. DISCHARGE MEDICATIONS: 1. Zantac 150 mg p.o. daily. 2. [place] 5 1-2 tablets q.6h p.r.n. 3. Vitamin D2 13181 units on Monday. 4. Zestril 10 mg p.o. b.i.d. 5. Norvasc 5 mg p.o. daily. 6. Mucinex 1200 mg p.o. q.12. 7. Keflex 250 mg q.6; 28 capsules. FOLLOWUP: Follow up with Dr. Wu on May 07, 2019, follow up with Dr. Cody Hensley in [place] on 04/25/2019. Copy to Dr. Hensley. MMODL / IJN: [id number] /
== END 2019-04-19 13:05 | disposition home or self-care (01) | DRG 690 ==
LOC: EC 19:40 → 4SSUR 04-17 00:21
PROVIDERS: ADMIT Hospitalist; ATTEND Hospitalist
DX: N39.0 Urinary tract infection, site not specified (principal); N13.6 Pyonephrosis; B96.1 Klebsiella pneumoniae [K. pneumoniae] as the cause of diseases classified elsewhere; I13.10 Hypertensive heart and chronic kidney disease without heart failure, with stage 1 through stage 4 chronic kidney disease, or unspecified chronic kidney disease; K21.9 Gastro-esophageal reflux disease without esophagitis; K80.20 Calculus of gallbladder without cholecystitis without obstruction; N18.2 Chronic kidney disease, stage 2 (mild); Z79.899 Other long term (current) drug therapy; Z82.5 Family history of asthma and other chronic lower respiratory diseases; Z87.442 Personal history of urinary calculi; Z90.710 Acquired absence of both cervix and uterus; Z99.3 Dependence on wheelchair; Z79.891 Long term (current) use of opiate analgesic; Z88.0 Allergy status to penicillin; Z98.42 Cataract extraction status, left eye; Z87.81 Personal history of (healed) traumatic fracture
CPT/HCPCS: 36415; 74018; 74177; 80053; 81001; 82150; 83605; 83690; 85025; 85610; 85730; 87040; 87077; 87086; 87186

== ENCOUNTER → 2019-07-04 | Outpatient (CLI) | payer MEDICARE ==
[2019-07-04 15:06] LABS: HCT 43.1 % (34.0-46.0); HGB 14.2 gm/dL (11.4-16.0); MCH 31.1 pg (25.0-35.0); MCHC 33.1 g/dL (31.0-37.0); Mean Platelet Volume 8.1; Platelet Count 241 k/uL (150-450); RBC 4.58 m/uL (3.80-5.40); RDW 15.3 % (11.5-15.5); WBC 8.2 k/uL (3.8-10.6)
== END | disposition home or self-care (01) ==
LOC: LABPAT 14:04
PROVIDERS: ATTEND Surgery Plastic and Reconstructive Surgery
DX: Z01.812 Encounter for preprocedural laboratory examination (principal)
CPT/HCPCS: 36415; 85027

== ENCOUNTER 2019-07-05 07:28 | Day surgery (SDC) | payer MEDICARE ==
[2019-07-01 15:31] VITALS: BMI 29.0
--- NOTE | 2019-07-05 06:19 | P.GSHP ---
History of Present Illness H&P Date: 07/05/19 CHIEF COMPLAINT: Cholecystitis HISTORY OF PRESENT ILLNESS: The patient is a 84-year-old female who presents with history of epigastric including right upper quadrant abdominal pain. She underwent diagnostic studies for her gallbladder. Separately her clinical picture was consistent with cholecystitis. Now she presents for surgical intervention. PAST MEDICAL HISTORY: Please see list PAST SURGICAL HISTORY: Please see list MEDICATIONS: Please see list ALLERGIES: Please see list SOCIAL HISTORY: No illicit drug use or recent tobacco use FAMILY HISTORY: Pertinent for gallbladder disease REVIEW OF ORGAN SYSTEMS: CONSTITUTIONAL: No reports of fevers or chills. MUSCULOSKELETAL: Has occasional joint pain including back pain. HEMATOLOGIC: No personal or family history of DVTs or pulmonary emboli. PHYSICAL EXAM: VITAL SIGNS: Afebrile vital signs stable GENERAL: Well-developed pleasant in no acute distress. HEENT: No scleral icterus. Extraocular movements grossly intact. Moist buccal mucosa. NECK: Supple without lymphadenopathy. CHEST: Unlabored respirations. Equal bilateral excursions. CARDIOVASCULAR: Regular rate regular rhythm rhythm. Distal 2+ pulses. ABDOMEN: Soft, nondistended. Tender along the epigastrium and right upper quadrant. MUSCULOSKELETAL: No clubbing, cyanosis, or edema. NEURO: Cranial nerves II to XII within normal limits. No focal or lateralizing signs. PSYCH: Alert and oriented to person, place and time. SKIN: Well-perfused good skin turgor. ASSESSMENT: 1. Epigastric and right upper quadrant abdominal pain 2. Chronic cholecystitis 3. Symptomatic gallstones. PLAN: 1. Will need a robotic cholecystectomy possible open. Benefits and risks were described. 2. Heparin for DVT prophylaxis 5000 units. 3. Antibiotic prophylaxis. Past Medical History Past Medical History: GERD/Reflux, Hypertension Additional Past Medical History / Comment(s): gallbladder stones and kidney stones,Chronic sinus problems, limited mobility (wheelchair) pt states d/t surgical complications-able to use walker in apartment History of Any Multi-Drug Resistant Organisms: None Reported Past Surgical History: Bladder Surgery, Hernia Repair, Hysterectomy, Orthopedic Surgery Additional Past Surgical History / Comment(s): R leg fracture with surgery/hardware-since removed, R hip fx with ORIF, R knee arthroscopies, abdominal hernia repair, ESS/septoplasty, bladder suspension. Past Anesthesia/Blood Transfusion Reactions: No Reported Reaction Additional Past Anesthesia/Blood Transfusion Reaction / Comment(s): no problems with prior blood transfusion Smoking Status: Never smoker - Past Family History Son(s) Family Medical History: Cancer Father Family Medical History: COPD Mother Family Medical History: No Reported History Additional Family Medical History / Comment(s): Mother was healthy Medications and Allergies Home Medications Medication Instructions Recorded Confirmed Type Ranitidine HCl [Zantac] 150 mg PO BID 09/26/14 07/01/19 History Ergocalciferol [Vitamin D2 50,000 unit PO FR 04/16/19 07/01/19 History (DRISDOL)] Lisinopril [Zestril] 10 mg PO BID 04/16/19 07/01/19 History amLODIPine [Norvasc] 5 mg PO QAM 04/16/19 07/01/19 History Naproxen Sodium [Aleve] 220 mg PO BID PRN 07/01/19 07/01/19 History Allergies Allergy/AdvReac Type Severity Reaction Status Date / Time Penicillins Allergy Rash/Hives Verified 07/01/19 15:19
[~2019-07-05 07:28] MED LIST: DEXAMETHASONE SOD PHOSPHATE 10 MG/ML 1 ML VIAL IV ONE; HEPARIN SODIUM,PORCINE 5,000 UNIT/ML 1 ML VIAL SQ ONE; HYDROmorphone 0.5 MG/0.5 ML SYRINGE IVP PRN; INDOCYANINE GREEN 25 MG VIAL IV ONE; LACTATED RINGERS 1,000 ML IV SCH; MIDAZOLAM 2 MG/2 ML VIAL IV PRN; ONDANSETRON 4 MG/2 ML VIAL IVP ONE
[2019-07-05] MEDS ORDERED: MIDAZOLAM PF (FBP) 2 MG/2 ML VIAL IV ONE (09:14)
[2019-07-05] MEDS ORDERED: MIDAZOLAM 2 MG/2 ML VIAL ONE (09:30)
[2019-07-05] MEDS ORDERED: fentaNYL (PF) 50 MCG/ML 2 ML AMP ONE (09:30)
[2019-07-05] MEDS ORDERED: INDOCYANINE GREEN 25 MG VIAL IV ONE (09:30)
[2019-07-05] MEDS ORDERED: ROPIVACAINE 5 MG/ML 30 ML VIAL ONE (09:30)
[2019-07-05] MEDS ORDERED: NEOSTIGMINE 1 MG/ML 10 ML VIAL ONE (09:30)
[2019-07-05] MEDS ORDERED: ROCURONIUM BROMIDE 10 MG/ML 10 ML VIAL IV ONE (09:30)
[2019-07-05] MEDS ORDERED: PROPOFOL 10 MG/ML 20 ML VIAL IV ONE (09:30)
[2019-07-05] MEDS ORDERED: PHENYLEPHRINE-0.9% NACL SYG 1 MG/10 ML SYRINGE ONE (09:30)
[2019-07-05] MEDS ORDERED: LIDOCAINE 1% INJ 10MG/ML (20 ML MDV) ONE (09:30)
[2019-07-05] MEDS ORDERED: GLYCOPYRROLATE 0.2 MG/ML 2 ML VIAL ONE (09:30)
[2019-07-05] MEDS ORDERED: BUPIVACAIN-EPI 0.25%-1:200,000 30 ML VIAL SQ ONE (09:55)
[2019-07-05] MEDS ORDERED: LACTATED RINGERS 1,000 ML IV ONE (10:24)
--- NOTE | 2019-07-05 10:27 | P.PCN ---
Date of Procedure: 07/05/19 Description of Procedure: SURGEON: ROLANDA WU MD PREOPERATIVE DIAGNOSES: 1. Right upper quadrant abdominal pain 2. Chronic cholecystitis 3. Gallstones 4. Hypertensive heart disease 5. Wheelchair-bound status POSTOPERATIVE DIAGNOSES: 1. Right upper quadrant abdominal pain 2. Chronic cholecystitis 3. Gallstones 4. Hypertensive heart disease 5. Wheelchair-bound status OPERATION: Robotic-assisted da Sophia Xi laparoscopic cholecystectomy, multiport with FIREFLY ESTIMATED BLOOD LOSS: 5 mL. SPECIMENS REMOVED: Gallbladder. COMPLICATIONS: None. OPERATIVE FINDINGS: 1. Chronic cholecystitis 2. Bulbous cystic appearance of infundibulum 3. Console time 15 minutes INDICATIONS: The patient is a 84-year-old female who presents with cholelcystitis. Surgical intervention with a laparoscopic cholecystectomy was described at length including injury to the biliary tree, bleeding, infection, need for further surgery. Informed consent was obtained. Robotic assisted laparoscopic approach was described. Benefits and risks of the procedure including but not limited to bleeding, infection, injury to the biliary tree was described. Informed consent was obtained. DESCRIPTION OF PROCEDURE: Patient was brought to the operating room, placed in supine position. After general induction, the abdomen had been prepped and draped in standard sterile fashion. The robotic da Sophia XI system was primed. After a timeout protocol was performed, the patient had been prepped and draped in standard sterile fashion. The patient was injected with indocyanine green. A 5 mm 0 degrees laparoscopic trocar entry was performed along the left upper quadrant. The abdomen insufflated to 15 mmHg pressure which was tolerated well. Diagnostic laparoscopy demonstrated no injury to bowel viscera or mesentery. The liver surface was unremarkable. Next, two 8 mm robotic ports were placed along the right upper abdomen. The camera 8-mm port was maintained along the epigastrium. Another 8 mm port was placed along the left upper abdominal wall after exchanging the 5 mm port. Please note that the ports were placed at least 10 to 15 cm away from the target anatomy of the gallbladder. The robot was docked along the left lateral abdomen. The patient was repositioned in reverse Trendelenburg position. Using a grasper for arm 3, a grasper for arm 4, including hook cautery for arm 1, the robotic system was docked and primed as described. Instruments were interchanged by the assistant paralegal including hook cautery, Bovie cautery and clip appliers. I had sat at the console. The gallbladder fundus was retracted over the dome of the liver. Initial attention was brought to the infundibulum which was gently retracted in the inferior lateral approach. Using a grasper, the cystic duct including the cystic artery was carefully skeletonized. FIREFLY was used to identify the cystic artery and cystic structures. A critical view of safety was obtained. Large PLASTIC clips were used throughout the entire case. Using a clip tunnel kiln operator 2 clips were placed proximally, and 1 clip was placed between the infundibulum and cystic duct and divided using cautery. Next, the cystic artery was similarly clipped and cauterized. Electro-Bovie cautery was used to remove the gallbladder from the hepatic fossa. Hemostasis was checked and found to be adequate. The robot was undocked. I re-scrubbed into the case. Using a 10 mm Endo Catch bag via the left upper quadrant incision, the specimen was removed from the abdominal cavity. All pneumoperitoneum instruments were evacuated from the abdominal cavity. The incisions were reapproximated using 4-0 Monocryl in an interrupted subcuticular fashion. Fascial defects were less than 8 mm in size. Please note along the trocar sites, local anesthetic was placed as a field block prior to insertion of all instruments. Liquid glue was applied to the skin. At the end of the procedure needle, sponge, and instrument count had been verified correct by the body technician. The patient was transferred to postanesthesia care unit in stable condition. Intraoperative films were shared with the patient's family who were very pleased with the level of care. Plan - Discharge Summary Discharge Rx Participant: No New Discharge Prescriptions: New Ibuprofen [Motrin] 600 mg PO Q8HR PRN #30 tab PRN Reason: Pain Acetaminophen Tab [Tylenol Tab] 500 mg PO Q6H PRN #30 tablet PRN Reason: Pain No Action Ranitidine HCl [Zantac] 150 mg PO BID amLODIPine [Norvasc] 5 mg PO QAM Lisinopril [Zestril] 10 mg PO BID Ergocalciferol [Vitamin D2 (DRISDOL)] 50,000 unit PO FR Naproxen Sodium [Aleve] 220 mg PO BID PRN PRN Reason: Pain Discharge Medication List Ranitidine HCl [Zantac] 150 mg PO BID 09/26/14 [History] Ergocalciferol [Vitamin D2 (DRISDOL)] 50,000 unit PO FR 04/16/19 [History] Lisinopril [Zestril] 10 mg PO BID 04/16/19 [History] amLODIPine [Norvasc] 5 mg PO QAM 04/16/19 [History] Naproxen Sodium [Aleve] 220 mg PO BID PRN 07/01/19 [History] Acetaminophen Tab [Tylenol Tab] 500 mg PO Q6H PRN #30 tablet 07/05/19 [Rx] Ibuprofen [Motrin] 600 mg PO Q8HR PRN #30 tab 07/05/19 [Rx] Follow up Appointment(s)/Referral(s): Rolanda Wu MD [STAFF PHYSICIAN] - 07/09/19 Patient Instructions/Handouts: Cholecystitis (GEN), Low Fat Diet (DC), Laparoscopic Cholecystectomy (DC) Activity/Diet/Wound Care/Special Instructions: Shower. No bath tub soaks for 10 days, July 15. No lifting over 10 pounds until July 15. Discharge Disposition: HOME SELF-CARE
[2019-07-05 10:48] VITALS: TEMP 97.6
--- NOTE | 2019-07-05 11:10 | P.ANPRN ---
Procedure Note - Anesthesia - Nerve Block Performed Bilateral Transversus Abdominis Single Time Out Performed: Yes Date of Procedure: 07/05/19 Procedure Start Time: 09:13 Procedure Stop Time: 09:32 Location of Patient Procedure: PreOp Indication: Acute Post-Operative Pain, Requested by physician Sedation Type: Sedate with meaningful contact maintained Preparation: Sterile Prep, Sterile Dressing Position: Supine Catheter: None Needle Types: Pajunk Needle Gauge: 20 Technique: Ultrasound Injectate: 0.5% Ropivacaine (see comment for volume) (25 ml 0.25% ropivacaine per side)
[2019-07-05 12:21] VITALS: RESP 16
[2019-07-05 12:36] VITALS: BP 126/72; PULSE 68
== END 2019-07-05 13:57 | disposition home or self-care (01) ==
LOC: OR 07:28
PROVIDERS: ATTEND Surgery Plastic and Reconstructive Surgery
DX: K80.12 Calculus of gallbladder with acute and chronic cholecystitis without obstruction (principal); I11.9 Hypertensive heart disease without heart failure; Z99.3 Dependence on wheelchair; K21.9 Gastro-esophageal reflux disease without esophagitis; Z79.1 Long term (current) use of non-steroidal anti-inflammatories (NSAID); Z79.899 Other long term (current) drug therapy; Z88.0 Allergy status to penicillin
CPT/HCPCS: 88304; 47562; J2250 ×2; J1644; J1100; J2710; J0690; J2405; J2001; J3010; J2795; J2370; J2704

== ENCOUNTER → 2022-06-29 | Outpatient (CLI) | payer MEDICARE ==
--- NOTE | 2022-06-29 19:29 | MR ---
EXAMINATION TYPE: MR lumbar spine wo con DATE OF EXAM: 06/29/2022 COMPARISON: Lumbar MRI 01/27/2018 HISTORY: SPONDYLOSIS WITH RADICULOPATHY, LUMBAR REGION TECHNIQUE: Multiplanar, multisequence images of the lumbar spine were acquired without IV contrast. L1-L2: Posterior broad-based disc bulge causes mild anterior mass effect on the thecal sac. The L2-L3: Posterior broad-based disc bulge causes mild anterior mass effect on the thecal sac. Circumfer ential extension of disc material extends to the inferior aspect of the foramen on the left. There is facet arthropathy with hypertrophy ligamentum flavum causing posterior lateral mass effect on the th ecal sac. L3-L4: Posterior broad-based disc bulge causes mild anterior mass effect thecal sac. Facet arthropath y with hypertrophy ligamentum flavum causes some posterior lateral mass effect on the thecal sac. Cir cumferential extension of disc material encroaches minimally on the inferior aspect of the foramina. L4-L5: Posterior broad-based disc bulge causes mild anterior mass effect on the thecal sac. Facet art hropathy with hypertrophy ligamentum flavum is noted. Circumferential extension endplate disc complex encroaches minimally on the inferior aspect of the foramen on the right. L5-S1: There are facet arthropathy changes present. No significant foraminal encroachment or disc her niation. Lumbar segments are intact. No paraspinal masses are identified. Conus medullaris has a normal appe arance. There is no significant spinal stenosis. Lumbar vertebral bodies show preserved height and al ignment. Multilevel spondylosis is present with endplate discogenic marrow signal change. Loss of dis c height signal is present L3-4, L1-2 consistent with disc desiccation and degenerative disc disease as well as T12-L1. Cortical cysts are associated with the kidneys. Probable parapelvic cysts also not ed within the left kidney. Lower pole the right kidney shows possible hemorrhagic cyst, indeterminate . IMPRESSION: Degenerative disc disease, facet arthropathy as described. Additional findings above.
== END | disposition home or self-care (01) ==
LOC: RADMRIMAIN 12:12
PROVIDERS: ATTEND Orthopaedic Surgery
DX: M47.26 Other spondylosis with radiculopathy, lumbar region (principal); G95.19 Other vascular myelopathies
CPT/HCPCS: 72148

== ENCOUNTER → 2022-08-17 | Outpatient (CLI) | payer MEDICARE ==
[2022-08-17 14:21] VITALS: BP 136/75; PULSE 77; RESP 18; TEMP 98.1
--- NOTE | 2022-08-17 15:13 | P.PAINPG ---
Objective - Vital Signs Vital signs: Intake & Output 08/16/22 08/17/22 08/17/22 18:59 06:59 18:59 Weight 72.575 kg PQRS Measure Charge Sheet Comment: HISTORY OF PRESENT ILLNESS: 87 yr old female w caregiver at side as a referral from [facility] presents today w severe and chronic LBP secondary to DDD, spondylosis, facet arthropathy without myelopathy for evaluation. Pt states her LBP is localized to the BL lower lumbar spine, constant, sharp in character, 10/10 in intensity w radiation to buttocks. Pain is provoked by any activities. Pain is alleviated w PT 2 yrs ago, use of a wheelchair for ambulation, medications (Tylenol OTC), repositioning and rest. PMH: Past Medical History: GERD, HTN, Nephrolithiasis, Choledocholithiasis PSH: Bladder suspension, RLE fracture w Hardware/ Removal, R Hip ORIF s/p Fracture, R Knee Arthroscopies, Abdominal Hernia Repair, ESS/ Septoplasty, Hysterectomy SH: Never smoker, No ETOH abuse, No illicit drug use. 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 FH: Mo- No Reported History. Fa- COPD. Son- CA. All: PCN MedsSee list REVIEW OF ORGAN SYSTEMS: CONSTITUTIONAL: No fevers or chills. No recent weight loss. NEUROLOGICAL: + numbness and tingling along the distal extremities. No seizure disorders or headaches. MUSCULOSKELETAL: + pain PSYCHIATRIC: Denies current depression or suicidal thoughts. Physical Examinations : Constitutional : Cooperative , not in acute distress . Neurologic : Cranial nerve II to XII intact. No focal neurological deficits. Psychiatric : alert & oriented x 3. Matching mood & appropriate affect. Judgment & insight intact. Musculoskeletal : Cervical Spine Motor strength in the deltoid and biceps: Normal right side. Normal Left side Motor strength biceps and the wrist extensors: Normal right side . Normal left side Motor strength in the triceps muscle: Normal right side. Normal left side Deep tendon reflexes: Normal at the biceps. Normal at Brachioradialis. Normal at triceps Vertebral body tenderness to deep palpation over Cervical facet loading test: positive bilaterally Spurling test: positive bilaterally Neck distraction test: positive bilaterally Jaya sign: positive bilaterally Lumbar spine Motor strength lower extremities ,thigh and legs 5/5 Right side , 5/5 Left side Deep tendon reflexes : Normal Knee Jerk. Normal Ankle Jerk Vertebral body tenderness over L2, L3 Lumbar facet Loading Test: positive Right / positive Left Range of motion of the lumbar spine Fl exion 30 degrees, extension 10 degrees Straight Leg Raise test: Left/ Right positive at degree Philly test: positive right / positive left. Severe tenderness over the Sacroiliac joint on the Right / Left sides Gaenslen test: positive bilaterally Seated flexion test: positive bilaterally. Sacral spine : Severe tenderness over the Sacroiliac joint: right side / left side Range of motion: Flexion of the lumbar spine <60 degrees Range of motion: Extension of the lumbar spine <20 degrees Gaenslen's Test positive Ciro's Test positive Philly test: positive right side / left side Thigh Thrust Test Sacral Thrust Test Imaging: MRI without contrast of the lumbar spine form 06/29/22 reviewed Assessment/ Plan : Lumbar DDD, lumbar spondylosis Recommendation of MCKENNA L2-L3 #1. May need a series of injections, up to 3 within a six-month period, for optimal pain relief. Risks, benefits of procedure discussed and patient verbalized understanding. Admits to aspirin or anti- coagulant use or medical history of diabetes. Protocol for discontinuation/ continuation of medications phyllis procedure discussed. All questions answered. I have spent greater than 30 minutes on patient care today. Dr Sparrow was available by phone for the evaluation of this patient. The time was used to review the medical records including relevant urine studies and Prescription history (MAPs), review of the available imaging, evaluation and examination of the patient, coordination of care with the medical staff and if applicable referring physicians, as well as creation of the medical record - Pain Location Bilateral Lower Back Non-Pharmacological Interventions: Inactivity Pharmacological Interventions: PRN Medication PQRS Narrative: Smoking Status Never smoker Home Medications: Ambulatory Orders Ranitidine HCl [Zantac] 150 mg PO BID 09/26/14 Ergocalciferol [Vitamin D2 (DRISDOL)] 50,000 unit PO FR 04/16/19 amLODIPine [Norvasc] 5 mg PO QAM 04/16/19 lisinopriL [Zestril] 10 mg PO BID 04/16/19 Naproxen Sodium [Aleve] 220 mg PO BID PRN 07/01/19 Acetaminophen Tab [Tylenol Tab] 500 mg PO Q6H PRN #30 tablet 07/05/19 Ibuprofen [Motrin] 600 mg PO Q8HR PRN #30 tab 07/05/19 Acetaminophen-Codeine 300-30mg [Tylenol w/codeine #3] 1 tab PO Q4H PRN 3 Days #18 tablet 08/17/22 Controlled Substance Measures - Controlled Substance Measures Is patient prescribed a controlled substance at discharge?: Yes When asked, does pt state using other controlled substances?: Yes If Rx opioid, was Start Talking consent form obtained?: Yes If opioid is for acute pain is fill amount 7 days or less?: Yes Was information provided regarding opioid addiction?: Yes
== END | disposition home or self-care (01) ==
LOC: PNWHC3 13:30
PROVIDERS: ATTEND Specialist
DX: M47.896 Other spondylosis, lumbar region (principal); M51.36 Other intervertebral disc degeneration, lumbar region
CPT/HCPCS: 99211

== ENCOUNTER 2022-08-30 22:06 | Observation (INO) | payer MEDICARE ==
[2022-08-30] MEDS ORDERED: SODIUM CHLORIDE 0.9% 1,000 ML IV STA (22:35)
--- NOTE | 2022-08-30 22:36 | ED ---
General Adult HPI - General Chief complaint: Weakness Stated complaint: Weakness Time Seen by Provider: 08/30/22 22:07 Source: patient, EMS Mode of arrival: EMS Limitations: no limitations - History of Present Illness Initial comments: Dictation was produced using [employer] dictation software. please excuse any grammatical, word or spelling errors. Chief Complaint: 87-year-old female presents to the emergency department for weakness History of Present Illness: Patient is a 87-year-old female she presents to the emergency department for lower extremity weakness. Patient has history of chronic back problems. She normally has a loan closer however according to EMS her loan closer was not available today. She went to the bathroom and sat down and tried to stand up and felt like her left leg was too weak. Patient is a history of worsening weakness in her lower extremities. She is pending spinal injections once her insurance authorizes it. She called EMS instead of of trying to stand and go back to her room. EMS brought patient to the emergency room. Patient feels like her left leg is stiff. She has several bulging disc i n her lower back. Patient also has chronic leg pain. Denies any trauma. The ROS documented in this emergency department record has been reviewed and confirmed by me. Those systems with pertinent positive or negative responses have been documented in the HPI. All other systems are other negative and/or noncontributory. PHYSICAL EXAM: General Impression: Alert and oriented x3, not in acute distress HEENT: Normocephalic atraumatic, extra-ocular movements intact, pupils equal and reactive to light bilaterally, mucous membranes moist. Cardiovascular: Heart regular rate and rhythm Chest: Able to complete full sentences, no retractions, no tachypnea Abdomen: abdomen soft, non-tender, non-distended, no organomegaly Musculoskeletal: Pulses present and equal in all extremities, no peripheral edema Motor: no focal deficits noted Neurological: CN II-XII grossly intact, no focal motor or sensory deficits noted Skin: Intact with no visualized rashes Psych: Normal affect and mood ED course: 87-year-old female presents emergency department for lower extremity weakness. Vital signs upon arrival are within acceptable limits. EKG interpretation: Ventricular rate 85, sinus rhythm,. Interval to 20, QS 11, QTC 397. No VT prolongation, no QTC prolongation, no ST or T-wave changes noted. Compared to EKG from 09/22/2014 showing slight changes in 3 and aVF. Overall, this EKG is nonspecific Patient does not have any focal neurologic deficits. Patient states that her difficulties with perform her activities of daily living are secondary to her acute on chronic back pain. Laboratory evaluation obtained. CBC unremarkable. Metabolic panel shows mild hyponatremia 131. Rest of labs metabolic panel is negative. Urinalysis is nitrite positive without any white blood cells. This suggests however urinary tract infection. Patient given 1 g of ceftriaxone. Disposition options were discussed with patient. Patient does not feel safe at home due to unavailability of her loan closer at home for the time being. Patient requesting to be admitted she does not feel strong enough to go home and care for herself. - Related Data Home Medications Medication Instructions Recorded Confirmed Ranitidine HCl [Zantac] 150 mg PO BID 09/26/14 08/17/22 Ergocalciferol [Vitamin D2 50,000 unit PO FR 04/16/19 08/17/22 (DRISDOL)] amLODIPine [Norvasc] 5 mg PO QAM 04/16/19 08/17/22 lisinopriL [Zestril] 10 mg PO BID 04/16/19 08/17/22 Naproxen Sodium [Aleve] 220 mg PO BID PRN 07/01/19 08/17/22 Previous Rx's Medication Instructions Recorded Acetaminophen Tab [Tylenol Tab] 500 mg PO Q6H PRN #30 tablet 07/05/19 Ibuprofen [Motrin] 600 mg PO Q8HR PRN #30 tab 07/05/19 Acetaminophen-Codeine 300-30mg 1 tab PO Q4H PRN 3 Days #18 tablet 08/17/22 [Tylenol w/codeine #3] Allergies Allergy/AdvReac Type Severity Reaction Status Date / Time Penicillins Allergy Rash/Hives Verified 08/17/22 14:10 Review of Systems ROS Statement: Those systems with pertinent positive or pertinent negative responses have been documented in the HPI. ROS Other: All systems not noted in ROS Statement are negative. Past Medical History Past Medical History: GERD/Reflux, Hypertension Additional Past Medical History / Comment(s): gallbladder stones and kidney stones,Chronic sinus problems, limited mobility (wheelchair) pt states d/t surgical complications-able to use walker in apartment History of Any Multi-Drug Resistant Organisms: None Reported Past Surgical History: Bladder Surgery, Hernia Repair, Hysterectomy, Orthopedic Surgery Additional Past Surgical History / Comment(s): R leg fracture with surgery/hardware-since removed, R hip fx with ORIF, R knee arthroscopies, abdominal hernia repair, ESS/septoplasty, bladder suspension. Past Anesthesia/Blood Transfusion Reactions: No Reported Reaction Additional Past Anesthesia/Blood Transfusion Reaction / Comment(s): no problems with prior blood transfusion Past Psychological History: No Psychological Hx Reported Smoking Status: Unknown if ever smoked - Past Family History Father Family Medical History: COPD Mother Family Medical History: No Reported History Additional Family Medical History / Comment(s): Mother was healthy General Exam Limitations: no limitations Course Vital Signs 08/30/22 08/30/22 22:07 23:40 Temperature 98.2 F Pulse Rate 96 80 Respiratory 20 16 Rate Blood Pressure 97/33 145/67 O2 Sat by Pulse 95 96 Oximetry Medical Decision Making - Lab Data Result diagrams: 08/30/22 22:54 08/30/22 22:54 Lab Results 08/30/22 08/30/22 08/31/22 Range/Units 22:54 22:54 00:20 WBC 5.4 (3.8-10.6) k/uL RBC 4.17 (3.80-5.40) m/uL Hgb 12.6 (11.4-16.0) gm/dL Hct 37.7 (34.0-46.0) % MCV 90.5 (80.0-100.0) fL MCH 30.1 (25.0-35.0) pg MCHC 33.3 (31.0-37.0) g/dL RDW 13.1 (11.5-15.5) % Plt Count 198 (150-450) k/uL MPV 8.3 Neutrophils % 74 % Lymphocytes % 13 % Monocytes % 8 % Eosinophils % 2 % Basophils % 1 % Neutrophils # 4.0 (1.3-7.7) k/uL Lymphocytes # 0.7 L (1.0-4.8) k/uL Monocytes # 0.4 (0-1.0) k/uL Eosinophils # 0.1 (0-0.7) k/uL Basophils # 0.0 (0-0.2) k/uL Sodium 131 L (137-145) mmol/L Potassium 3.9 (3.5-5.1) mmol/L Chloride 99 (98-107) mmol/L Carbon Dioxide 24 (22-30) mmol/L Anion Gap 8 mmol/L BUN 12 (7-17) mg/dL Creatinine 0.84 (0.52-1.04) mg/dL Est GFR (CKD-EPI)AfAm 73 (>60 ml/min/1.73 sqM) Est GFR (CKD-EPI)NonAf 63 (>60 ml/min/1.73 sqM) Glucose 131 H (74-99) mg/dL Calcium 8.6 (8.4-10.2) mg/dL Total Bilirubin 0.5 (0.2-1.3) mg/dL AST 18 (14-36) U/L ALT 6 (4-34) U/L Alkaline Phosphatase 143 H (38-126) U/L Total Protein 6.5 (6.3-8.2) g/dL Albumin 3.5 (3.5-5.0) g/dL Urine Color Light Yellow Urine Appearance Clear (Clear) Urine pH 6.0 (5.0-8.0) Ur Specific Beaver 1.005 (1.001-1.035) Urine Protein Negative (Negative) Urine Glucose (UA) Negative (Negative) Urine Ketones Negative (Negative) Urine Blood Negative (Negative) Urine Nitrite Positive H (Negative) Urine Bilirubin Negative (Negative) Urine Urobilinogen <2.0 (<2.0) mg/dL Ur Leukocyte Esterase Negative (Negative) Urine RBC 1 (0-5) /hpf Urine WBC 2 (0-5) /hpf Ur Squamous Epith Cells 2 (0-4) /hpf Urine Bacteria Many H (None) /hpf Urine Mucus Rare H (None) /hpf Disposition Clinical Impression: Gravely disabled, UTI (urinary tract infection) Disposition: ADMITTED IP TO THIS HOSP Condition: Fair Referrals: Chase Enriquez MD [Primary Care Provider] - 1-2 days Decision Time: 00:46
[2022-08-30 23:01] LABS: Basophils % (A) 1 %; Eosinophils # (A) 0.1 k/uL (0-0.7); Eosinophils % (A) 2 %; HCT 37.7 % (34.0-46.0); HGB 12.6 gm/dL (11.4-16.0); Lymphocytes # (A) 0.7 k/uL (1.0-4.8); Lymphocytes % (A) 13 %; MCH 30.1 pg (25.0-35.0); MCHC 33.3 g/dL (31.0-37.0); MCV 90.5 fL (80.0-100.0); Mean Platelet Volume 8.3; Monocytes # (A) 0.4 k/uL (0-1.0); Monocytes % (A) 8 %; Neutrophils % (A) 74 %; Platelet Count 198 k/uL (150-450); RBC 4.17 m/uL (3.80-5.40); RDW 13.1 % (11.5-15.5); WBC 5.4 k/uL (3.8-10.6)
[2022-08-30 23:19] LABS: Albumin 3.5 g/dL (3.5-5.0); Calcium 8.6 mg/dL (8.4-10.2); Potassium 3.9 mmol/L (3.5-5.1); Total Bilirubin 0.5 mg/dL (0.2-1.3); Total Protein 6.5 g/dL (6.3-8.2)
[2022-08-31 00:36] LABS: Appearance,Urine Clear (Clear); Bacteria,Urine Many /hpf; Bilirubin,Urine Negative (Negative); Blood,Urine Negative (Negative); Color,Urine Light Yellow; Glucose,Urine (UA) Negative (Negative); Ketones,Urine Negative (Negative); Leukocyte Esterase,Urine Negative (Negative); Mucus,Urine Rare /hpf; Nitrite,Urine Positive (Negative); Protein,Urine Negative (Negative); RBC,Urine 1 /hpf (0-5); Specific Gravity,Urine 1.005 (1.001-1.035); Squamous Epithelial Cell,Urine 2 /hpf (0-4); Urobilinogen,Urine <2.0 mg/dL (<2.0); WBC,Urine 2 /hpf (0-5)
[2022-08-31] MEDS ORDERED: cefTRIAXone IN SWFI 1,000 MG/10 ML SYRINGE IVP STA (00:38)
[2022-08-31] MEDS ORDERED: ACETAMINOPHEN TAB 325 MG TAB PO PRN (00:41)
[2022-08-31] MEDS ORDERED: NALOXONE 0.4 MG/ML 1 ML VIAL IV PRN (00:41)
[2022-08-31] MEDS: SODIUM CHLORIDE 0.9% 1,000 ML IV SCH (01:17)
--- NOTE | 2022-08-31 03:18 | P.HPIM ---
History of Present Illness H&P Date: 08/31/22 Chief Complaint: Acute on chronic low back pain 87-year-old female with chronic low back pain and debility She comes in today because of inability to stand up or walk which has been progressively getting worse she reports chronic low back pain she was diagnosed with bulging disks that's resulting in radiculopathy to the bilateral lower extremities with tingling and weakness area she's been seeing Drs. holloway for that however no plans for surgery yet. Her doctor was planning on doing spinal injections however waiting on insurance authorization. Today while using the bathroom she found it very difficult to get up and stand up she has limited help home for which she decided to come to the hospital seeking help. Patient otherwise denies any fevers or chills denies any trouble breathing dizziness lightheadedness chest pain nausea vomiting abdominal pain changes in her bowel or urinary habits, patient denies any focal neuro deficits denies any saddle numbness or paresthesia. Workup in the ED was suggestive of urinary tract infection. Patient did not feel safe going home and requested to be hospitalized to be seen by spine surgeon Review of Systems Pertinent positives as noted in HPI. All other systems were reviewed and are negative Past Medical History Past Medical History: GERD/Reflux, Hypertension Additional Past Medical History / Comment(s): gallbladder stones and kidney stones,Chronic sinus problems, limited mobility (wheelchair) pt states d/t surgical complications-able to use walker in apartment History of Any Multi-Drug Resistant Organisms: None Reported Past Surgical History: Bladder Surgery, Hernia Repair, Hysterectomy, Orthopedic Surgery Additional Past Surgical History / Comment(s): R leg fracture with surgery/hardware-since removed, R hip fx with ORIF, R knee arthroscopies, abdominal hernia repair, ESS/septoplasty, bladder suspension. Past Anesthesia/Blood Transfusion Reactions: No Reported Reaction Additional Past Anesthesia/Blood Transfusion Reaction / Comment(s): no problems with prior blood transfusion Past Psychological History: No Psychological Hx Reported Additional Psychological History / Comment(s): Pt [facility]. She has [facility] [employer] [facility] three times a week. She gets around by wheelchair. Smoking Status: Unknown if ever smoked Past Alcohol Use History: None Reported Past Drug Use History: None Reported - Past Family History Father Family Medical History: COPD Mother Family Medical History: No Reported History Additional Family Medical History / Comment(s): Mother was healthy Medications and Allergies Home Medications Medication Instructions Recorded Confirmed Type Ranitidine HCl [Zantac] 150 mg PO BID 09/26/14 08/17/22 History Ergocalciferol [Vitamin D2 50,000 unit PO FR 04/16/19 08/17/22 History (DRISDOL)] amLODIPine [Norvasc] 5 mg PO QAM 04/16/19 08/17/22 History lisinopriL [Zestril] 10 mg PO BID 04/16/19 08/17/22 History Naproxen Sodium [Aleve] 220 mg PO BID PRN 07/01/19 08/17/22 History Acetaminophen Tab [Tylenol Tab] 500 mg PO Q6H PRN #30 tablet 07/05/19 08/17/22 Rx Ibuprofen [Motrin] 600 mg PO Q8HR PRN #30 tab 07/05/19 08/17/22 Rx Acetaminophen-Codeine 300-30mg 1 tab PO Q4H PRN 3 Days #18 tablet 08/17/22 Rx [Tylenol w/codeine #3] Allergies Allergy/AdvReac Type Severity Reaction Status Date / Time Penicillins Allergy Rash/Hives Verified 08/17/22 14:10 Physical Exam Vitals: Vital Signs Temp Pulse Resp BP Pulse Ox 08/31/22 01:13 73 18 140/66 93 L 08/30/22 23:40 80 16 145/67 96 08/30/22 22:07 98.2 F 96 20 97/33 95 Intake and Output 08/30/22 08/30/22 08/31/22 14:59 22:59 06:59 Other: Weight 72.575 kg 72.575 kg Constitutional: No acute distress, conversant, pleasant Eyes: Anicteric sclerae, moist conjunctiva, Pupils equal round reactive to light ENMT: NC/AT Oropharynx clear, no erythema, or exudates Neck: Supple, no masses, or JVD No carotid bruits No thyromegaly Lungs: Clear to auscultation Clear to percussion Normal respiratory effort, no accessory muscle use Cardiovascular: Heart regular in rate and rhythm, No murmurs, gallops, or rubs No peripheral edema Abdominal: Soft, Buitrago catheter in place Nontender, no guarding, rebound or rigidity Abdomen moving with respiration Normoactive bowel sounds No hepatomegaly, No splenomegaly No palpable mass No abdominal wall hernia noted Skin: Normal temperature, tone, texture, turgor No induration No subcutaneous nodules No rash, lesions No ulcers Extremities: No digital cyanosis No clubbing Pedal pulses intact and symmetrical Radial pulses intact and symmetrical No calf tenderness Psychiatric: Alert and oriented to person, place and time Appropriate affect fair judgement Neuro Muscles Strength 5/5 in bilateral upper extremities. Patient refused lower extremity exam due to diffuse pain and discomfort and lower back however she is able to move bilateral lower extremities actively to limited range due to pain Sensation to light touch grossly present throughout Cranial nerves II-XII grossly intact No focal sensory deficits Lymphatics: no palpable cervical or supraclavicular , or inguinal lymph nodes Results CBC & Chem 7: 08/30/22 22:54 08/30/22 22:54 Labs: Abnormal Lab Results - Last 24 Hours (Table) 08/30/22 08/30/22 08/31/22 Range/Units 22:54 22:54 00:20 Lymphocytes # 0.7 L (1.0-4.8) k/uL Sodium 131 L (137-145) mmol/L Glucose 131 H (74-99) mg/dL Alkaline Phosphatase 143 H (38-126) U/L Urine Nitrite Positive H (Negative) Urine Bacteria Many H (None) /hpf Urine Mucus Rare H (None) /hpf Thrombosis Risk Factor Assmnt - Choose All That Apply Each Factor Represents 1 point: Obesity (BMI >25) Each Risk Factor Represents 3 Points: Age 75 years or older Thrombosis Risk Factor Assessment Total Risk Factor Score: 4 Thrombosis Risk Factor Assessment Level: Moderate Risk Assessment and Plan Assessment: Acute on chronic low back pain with radiculopathy bilateral lower extremities Orthopedic consult Pain control with Tylenol patient declined any other stronger meds Urinary tract infection Follow-up cultures Initiated on Rocephin Tylenol for fever Monitor vital signs Buitrago catheter care Gentle IV fluid hydration DVT prophylaxis heparin subcu 3 times a day Full code
[2022-08-31] MEDS ORDERED: HEPARIN SODIUM,PORCINE/PF 5,000 UNIT/0.5 ML SYRINGE SQ SCH (08:00)
--- NOTE | 2022-08-31 09:13 | P.CNOR ---
History of Present Illness - [facility] Consult date: 08/31/22 Consult reason: low back pain History of present illness: Patient is a 87-year-old female with chronic debility who has increase in her back pain and leg pain. Apparently the patient has a caregiver who helps her with everything at home for transfers showering bathing and bathroom activities. The patient was by her result yesterday and sat on her toilet but was unable to get up off her toilet. She called the ambulance presented to the emergency room was admitted for severe debility and UTI with chronic back pain and acute on chronic low back and lower extremity pain. She says she has chronic weakness at her legs. She says it has been worsening over the past 9 years. She had been seen about 2 months ago with interventional pain management and they recommended the interventional treatment with epidural steroid injections. She had undergone an MRI in June which are reviewed. The patient says that she has severe weakness at her legs. She says she is unable to move her legs because they are numb. She says she does not have troubles with the bowel bladder function but she has great difficulty with trying to mobilize at all. She says she needs help with her mobilization. She says at home she uses a recliner and the walker and she is able to stand but has difficulty with this. She denies any acute trauma. She denies any changes in her upper extremity. She denies any fevers chills. She feels her legs have been for an extended period time she says she went through therapy but all he told her to do with elevate her legs. She says she tries to move her legs but does not seem to put out much effort towards any exercise or strengthening for her lower extremities and repeatedly says that someone has to help. Review of Systems As per HPI. She admits to not doing exercises when questioning further. She admits to not doing any physical therapy or home exercise program. She says she sits in a recliner. On testing she is somewhat unwilling to perform any activities with her lower extremities but when pushing is able to do some oceans. She denies any changes in bowel bladder function. Denies any fevers chills. She denies chest pain shortness breath. She is chronic caregiver. She says she went through therapy months ago but all plated was elevated her legs. Past Medical History Past Medical History: GERD/Reflux, Hypertension, Osteoarthritis (OA) Additional Past Medical History / Comment(s): gallbladder stones and kidney stones,Chronic sinus problems, limited mobility (wheelchair) pt states d/t surgical complications-able to use walker in apartment History of Any Multi-Drug Resistant Organisms: None Reported Past Surgical History: Bladder Surgery, Hernia Repair, Hysterectomy, Orthopedic Surgery Additional Past Surgical History / Comment(s): R leg fracture with surgery/hardware-since removed, R hip fx with ORIF, R knee arthroscopies, abdominal hernia repair, ESS/septoplasty, bladder suspension. Past Anesthesia/Blood Transfusion Reactions: No Reported Reaction Additional Past Anesthesia/Blood Transfusion Reaction / Comm: no problems with prior blood transfusion Past Psychological History: No Psychological Hx Reported Additional Psychological History / Comment(s): Pt resides at [facility]. She has [employer] three times a week. She gets around by wheelchair. Smoking Status: Unknown if ever smoked Past Alcohol Use History: None Reported Past Drug Use History: None Reported - Past Family History Father Family Medical History: COPD Mother Family Medical History: No Reported History Additional Family Medical History / Comment(s): Mother was healthy Medications and Allergies Home Medications Medication Instructions Recorded Confirmed Type Ranitidine HCl [Zantac] 150 mg PO BID 09/26/14 08/17/22 History Ergocalciferol [Vitamin D2 50,000 unit PO FR 04/16/19 08/17/22 History (DRISDOL)] amLODIPine [Norvasc] 5 mg PO QAM 04/16/19 08/17/22 History lisinopriL [Zestril] 10 mg PO BID 04/16/19 08/17/22 History Naproxen Sodium [Aleve] 220 mg PO BID PRN 07/01/19 08/17/22 History Acetaminophen Tab [Tylenol Tab] 500 mg PO Q6H PRN #30 tablet 07/05/19 08/17/22 Rx Ibuprofen [Motrin] 600 mg PO Q8HR PRN #30 tab 07/05/19 08/17/22 Rx Acetaminophen-Codeine 300-30mg 1 tab PO Q4H PRN 3 Days #18 tablet 08/17/22 Rx [Tylenol w/codeine #3] Allergies Allergy/AdvReac Type Severity Reaction Status Date / Time Penicillins Allergy Rash/Hives Verified 08/31/22 08:54 Physical Examination Osteopathic Statement: *. No significant issues noted on an osteopathic structural exam other than those noted in the History and Physical/Consult. - L Spine: dermatomal strength & reflexes bilateral Strength: hip flexion: 3/5 Strength: knee flexion: 4/5 (She will do some gentle flexion at her bilateral knees. There is no pain with initial x-ray rotation of her hips. Her thighs and calves are soft and nontender. She exerts very little effort during the exam.) Strength: ankle dorsiflexion: 4/5 (She is very limited mobility. She is not able to roll over by herself in bed. Her back is clear. Her lower extremities she has dorsiflexion plantarflexion at her lower extremity splint is very limited effort with her motion and activity.) Strength: ankle plantar flexion: 4/5 (She is able to slightly bend her knee and start to lift her left leg up off the bed. She is able to slightly bend her knee but will not lift her right leg up off the bed. There is very limited effort involved for her despite pushing her to try harder. She does not seem to without much effort towa) Results - Labs Labs: Abnormal Lab Results - Last 24 Hours (Table) 08/30/22 08/30/22 08/31/22 Range/Units 22:54 22:54 00:20 Lymphocytes # 0.7 L (1.0-4.8) k/uL Sodium 131 L (137-145) mmol/L Glucose 131 H (74-99) mg/dL Alkaline Phosphatase 143 H (38-126) U/L Urine Nitrite Positive H (Negative) Urine Bacteria Many H (None) /hpf Urine Mucus Rare H (None) /hpf H & H 08/30/22 Range/Units 22:54 Hgb 12.6 (11.4-16.0) gm/dL Hct 37.7 (34.0-46.0) % Result Diagrams: 08/30/22 22:54 08/30/22 22:54 - Diagnostic results Lumbar MRI with/without contrast: report reviewed (There is no evidence of any fracture or dislocation. She has an old MRI of her thoracic and cervical which does not show any cord change), image reviewed (MRI of lumbar spine from June 29 shows degenerative disc disease throughout the lumbar spine there is diffuse disc bulging and facet arthrosis. There is no specific herniation. There is some bilateral foraminal encroachment without severe central or foraminal stenosis.) Assessment and Plan Assessment: Chronic low back pain Degenerative disc disease L2 through S1 Diffuse disc bulging at L2-3 L3 4 L4 5 Foraminal encroachment L2 through L3 4 L4 5 Facet arthrosis lumbar spine Chronic deconditioning with lower extremity weakness without specific neurologic deficit No evidence of acute neurologic change Inability to ambulate Obesity Plan: Chronic low back pain Degenerative disc disease L2 through S1 Diffuse disc bulging at L2-3 L3 4 L4 5 Foraminal encroachment L2 through L3 4 L4 5 Facet arthrosis lumbar spine Chronic deconditioning with lower extremity weakness without specific neurologic deficit No evidence of acute neurologic change Inability to ambulate Obesity The patient has a number of chronic degenerative changes at her lumbar spine without severe central or foraminal stenosis. She has chronic deconditioning in her lower extremities with some evidence of radicular symptoms as well. She has been very unwilling to do exercises retry to do any strengthening on her own and needs significant encouragement for this I think that therapy could be helpful for her for strengthening and range of motion of mobilization and potential ambulation. She is insistent that she needs an injection at her back and I think this could give her some benefit in terms of decreasing some of the symptoms of radiculopathy and pain at her lower extremities. We'll have interventional pain management see her and consider interventional epidural steroid injections. I have seen her in the past and made this recommendation that she has not gone through this before. We'll have pain management see her for epidural steroid injections. She would not be a candidate for surgical intervention. I discussed this with her at length. I think it is very likely that surgery would make her worse rather than improve her option. The patient should continue conservative care, active physical therapy, interventional pain management, and continue medical management for UTI. Patient likely need some counseling in regards to her role in her overall health and mobility. The patient demonstrates very little willingness to actively be involved in her health. She does not have specific neurologic deficit and could improve her strength in her lower extremities gradually with significant effort and time. I tried to explain this to her however she seems resistant to it. She will continue her medical management and should consider team approach counseling in regards to her overall health and mobility.
[2022-08-31] MEDS: RIVAROXABAN 2.5 MG TABLET PO SCH ×2 (10:47→20:34)
[2022-08-31] MEDS: amLODIPine 5 MG TAB PO SCH (10:47)
[2022-08-31] MEDS: prednisoLONE ACETATE 1% OPHTH DROPS 5 ML BTL LEFT EYE SCH ×4 (13:19→20:33)
[2022-08-31] MEDS: DICYCLOMINE 20 MG TAB PO SCH ×3 (13:19→22:36)
--- NOTE | 2022-08-31 14:35 | P.PAINPG ---
Objective - Vital Signs Vital signs: Vital Signs Temp 98.5 F 08/31/22 07:55 Pulse 68 08/31/22 07:55 Resp 18 08/31/22 07:55 BP 147/74 08/31/22 07:55 Pulse Ox 94 L 08/31/22 07:55 FiO2 Intake & Output 08/30/22 08/31/22 08/31/22 18:59 06:59 18:59 Output Total 1200 Balance -1200 Weight 72.575 kg Output: Urine 1200 - Labs CBC & Chem 7: 08/30/22 22:54 08/30/22 22:54 Labs: Abnormal Lab Results - Last 24 Hours (Table) 08/30/22 08/30/22 08/31/22 Range/Units 22:54 22:54 00:20 Lymphocytes # 0.7 L (1.0-4.8) k/uL Sodium 131 L (137-145) mmol/L Glucose 131 H (74-99) mg/dL Alkaline Phosphatase 143 H (38-126) U/L Urine Nitrite Positive H (Negative) Urine Bacteria Many H (None) /hpf Urine Mucus Rare H (None) /hpf PQRS Measure Charge Sheet Comment: HISTORY OF PRESENT ILLNESS: 87 yr old inpatient female as a referral from Dr Knight presents today w severe and chronic LBP secondary to DDD, spondylosis and facet arthropathy without myelopathy for evaluation. Pt states she has had back pain for several years but developed increased BLE weakness over the last few days. She was also undergoing ESIs of the lumbar spine over the last couple of months to manage pain. MRI without contrast of the lumbar spine form 06/29/22 reviewed. Pt is agreeable to receive an additional RADHA of the lumbar spine to manage pain. PMH: GERD, HTN, OA, Nephrolithiasis, Cholelithiasis PSH: Bladder Suspension, Abd Hernia Repair, ESS/ Septoplasty, R Knee Arthroscopies, R Hip ORIF s/p Fx, RLE Hardware Placement/ Removal s/p Fx, Hysterectomy. SH: Negative x 3.Resides at [facility] nurses [facility] three times a week. Use of a wheelchair for ambulation. FH: Fa- COPD. MoPCN- No Reported History. All: See list Meds: See list REVIEW OF ORGAN SYSTEMS: CONSTITUTIONAL: No fevers or chills. No recent weight loss. NEUROLOGICAL: + numbness and tingling along the distal extremities. No seizure disorders or headaches. MUSCULOSKELETAL: + pain PSYCHIATRIC: Denies current depression or suicidal thoughts. Physical Examinations : Constitutional : Cooperative , not in acute distress . Neurologic : Cranial nerve II to XII intact. No focal neurological deficits. Psychiatric : alert & oriented x 3. Matching mood & appropriate affect. Judgment & insight intact. Musculoskeletal : Cervical Spine Motor strength in the deltoid and biceps: Normal right side. Normal Left side Motor strength biceps and the wrist extensors: Normal right side . Normal left side Motor strength in the triceps muscle: Normal right side. Normal left side Deep tendon reflexes: Normal at the biceps. Normal at Brachioradialis. Normal at triceps Vertebral body tenderness to deep palpation over Cervical facet loading test: positive bilaterally Spurling test: positive bilaterally Neck distraction test: positive bilaterally Jaya sign: positive bilaterally Lumbar spine Motor strength lower extremities ,thigh and legs 5/5 Right side , 5/5 Left side Deep tendon reflexes : Normal Knee Jerk. Normal Ankle Jerk Vertebral body tenderness over L3, L4 Lumbar facet Loading Test: positive Right / positive Left Range of motion of the lumbar spine Flexion 30 degrees, extension 10 degrees Straight Leg Raise test: Left/ Right positive at degree Philly test: positive right / positive left. Severe tenderness over the Sacroiliac joint on the Right / Left sides Gaenslen test: positive bilaterally Seated flexion test: positive bilaterally. Sacral spine : Severe tenderness over the Sacroiliac joint: right side / left side Range of motion: Flexion of the lumbar spine <60 degrees Range of motion: Extension of the lumbar spine <20 degrees Gaenslen's Test positive Ciro's Test positive Philly test: positive right side / left side Thigh Thrust Test Sacral Thrust Test Imaging: MRI without contrast of the lumbar spine from 06/29/22 reviewed Assessment/ Plan : Lumbar DDD, lumbar spondylosis Recommendation of RADHA L3-L4. May need a series of injections, up to 4 within a 12 mo period, for optimal pain relief. Risks, benefits of procedure discussed and patient verbalized understanding. Admits to anti- coagulant (Xarelto) use or medical history of diabetes. Protocol for discontinuation/ continuation of medications phyllis procedure discussed. Will need to discontinue Xarelto for 3-5 days prior to RADHA which will take place on an outpatient basis. All questions answered. I have spent greater than 30 minutes on patient care today. Dr Sparrow was available by phone for the evaluation of this patient. The time was used to review the medical records including relevant urine studies and Prescription history (MAPs), review of the available imaging, evaluation and examination of the patient, coordination of care with the medical staff and if applicable referring physicians, as well as creation of the medical record - Pain Location Bilateral Leg Non-Pharmacological Interventions: Reduce Environmental Stimuli Pharmacological Interventions: Discuss Pain Med Options PQRS Narrative: Smoking Status Never smoker Do You Want the Pneumonia No Vaccine AT THIS TIME? Blood Pressure [Left Arm] 147/74 Blood Pressure 140/66 Pain Intensity [Bilateral Leg] 10 Pain Intensity 0 Scale Used Numeric (1 - 10) Hx Alcohol Use (MH) No Home Medications: Ambulatory Orders amLODIPine [Norvasc] 5 mg PO QAM 04/16/19 Acetaminophen-Codeine 300-30mg [Tylenol w/codeine #3] 1 tab PO Q4H PRN 3 Days #18 tablet 08/17/22 Azithromycin [Zithromax Z Pack] See Taper PO DIRECTED 08/31/22 Dicyclomine [Bentyl] 20 mg PO QID 08/31/22 Ergocalciferol [Vitamin D2 (1250 Mcg = 53497 Iu)] 1,250 mcg PO FR 08/31/22 Prednisolone Acetate/Pf [Prednisolone Acet 1% Eye Drop] 1 drop LEFT EYE DIRECTED 08/31/22 Rivaroxaban [Xarelto] 2.5 mg PO BID 08/31/22 Controlled Substance Measures - Controlled Substance Measures Is patient prescribed a controlled substance at discharge?: No
--- NOTE | 2022-08-31 16:36 | P.PN ---
Subjective Progress Note Date: 08/31/22 Hospital course: Patient is a very pleasant 87-year-old female with a past medical history of hypertension, GERD, PAD on anticoagulation with Xarelto, and chronic debility due to chronic low back pain with bilateral lower extremity radiculopathies secondary to reports of herniated disks. She presented to the emergency department with a chief complaint of increased lower back and left leg pain and weakness. The patient lives home alone and reports that she has a caregiver to assist with her needs. Patient states she typically ambulates with a walker or uses a wheelchair. upon arrival in the emergency department patient underwent full evaluation. CBC and CMP showing no significant abnormalities with the exception of mild hyponatremia with sodium of 131. Urinalysis was positive for nitrites however WBC count only 2. Patient was admitted under our services with consultation to orthopedic surgery and physical therapy. Physical exam: Patient seen and evaluated at bedside this morning. She reports continued pain in her lower back and left lower extremity pain. She was evaluated by orthospine surgery and they're currently recommending conservative care with increasing active physical therapy as well as interventional pain management. Orthospine surgeon consulted pain management at this time. Patient was updated on this plan. Patient denies having any numbness/tingling/weakness in her lower extremities and denies experiencing any involuntary loss of bowel or bladder. Patient does report a history of stress incontinence, but currently denying any complaints. Vital signs reviewed and stable. General: Nontoxic, no distress and appears stated age. Obese. Derm: Skin warm and dry, normal coloration for ethnicity. Head: Atraumatic, normocephalic and symmetric. Eyes: EOMs intact, no lid lag, and anicteric sclera Mouth: no lip lesions, mucus membranes moist Cardiovascular: regular rate and rhythm with normal S1S2 systolic murmur, positive posterior tibial pulses bilaterally, and cap refill < 2 seconds. Lungs: Respirations even, regular, and unlabored on room air. Lungs CTA bilaterally, no rhonchi, no rales, no wheezing, and no accessory muscle usage. Abdominal: soft, nontender to palpation, no guarding, no appreciable organomegaly Ext: ROM intact. No gross muscle atrophy, no edema, no contractures Neuro: Speech clear, face symmetrical and CN II-XII grossly intact with no noted focal neuro deficits Psych: Alert and oriented to person, place, time, and situation. Appropriate and pleasant affect. Assessment and Plan of Care: Acute on chronic lower back pain with BLE radiculopathies worse on left -Orthopedic surgery following, recommending conservative care -Pain management consulted -PT/OT consulted -Symptomatic care and pain management. -Fall precautions Urinary tract infection -Continue Rocephin -Follow up on urine cultures Hypertension -Monitor vital signs and continue daily medication regimen with amlodipine. CODE STATUS: Full code DVT prophylaxis: Xarelto Discussed with: Pt and RN Anticipated discharge date: Likely tomorrow morning Anticipated discharge place: [facility] facility for rehab A total of 35 minutes was spent on the care of this complex patient more than 50% of the time was spent in counseling and care coordination. Objective - Vital Signs Vital signs: Vital Signs Temp 98.5 F 08/31/22 07:55 Pulse 68 08/31/22 07:55 Resp 18 08/31/22 07:55 BP 147/74 08/31/22 07:55 Pulse Ox 94 L 08/31/22 07:55 FiO2 Intake & Output 08/30/22 08/31/22 08/31/22 18:59 06:59 18:59 Output Total 1200 Balance -1200 Weight 72.575 kg Output: Urine 1200 - Labs CBC & Chem 7: 08/30/22 22:54 08/30/22 22:54 Labs: Abnormal Lab Results - Last 24 Hours (Table) 08/30/22 08/30/22 08/31/22 Range/Units 22:54 22:54 00:20 Lymphocytes # 0.7 L (1.0-4.8) k/uL Sodium 131 L (137-145) mmol/L Glucose 131 H (74-99) mg/dL Alkaline Phosphatase 143 H (38-126) U/L Urine Nitrite Positive H (Negative) Urine Bacteria Many H (None) /hpf Urine Mucus Rare H (None) /hpf
[2022-09-01] MEDS: SODIUM CHLORIDE 0.9% 1,000 ML IV SCH (01:00)
[2022-09-01] MEDS: prednisoLONE ACETATE 1% OPHTH DROPS 5 ML BTL LEFT EYE SCH ×6 (05:50→20:52)
[2022-09-01] MEDS: DICYCLOMINE 20 MG TAB PO SCH ×4 (08:53→20:52)
[2022-09-01] MEDS: RIVAROXABAN 2.5 MG TABLET PO SCH ×2 (08:53→20:52)
[2022-09-01] MEDS: amLODIPine 5 MG TAB PO SCH (08:53)
--- NOTE | 2022-09-01 17:18 | P.PN ---
Subjective Progress Note Date: 09/01/22 Hospital course: Patient is a very pleasant 87-year-old female with a past medical history of hypertension, GERD, PAD on anticoagulation with Xarelto, and chronic debility due to chronic low back pain with bilateral lower extremity radiculopathies secondary to reports of herniated disks. She presented to the emergency department with a chief complaint of increased lower back and left leg pain and weakness. The patient lives home alone and reports that she has a caregiver to assist with her needs. Patient states she typically ambulates with a walker or uses a wheelchair. upon arrival in the emergency department patient underwent full evaluation. CBC and CMP showing no significant abnormalities with the exception of mild hyponatremia with sodium of 131. Urinalysis was positive for nitrites however WBC count only 2. Patient was admitted under our services with consultation to orthopedic surgery and physical therapy. Physical exam: Patient seen and evaluated at bedside this morning at 10:30 AM. She With sleeping and easily awoken via verbal stimuli. Patient reports continued low back pain unchanged. She is currently awaiting discharge to [facility] for rehab. She was evaluated by pain management planning outpatient evaluation and likely scheduling of epidural injections. plan is for discharge once insurance authorization has been obtained. Vital signs reviewed and stable. General: Nontoxic, no distress and appears stated age. Obese. Derm: Skin warm and dry, normal coloration for ethnicity. Head: Atraumatic, normocephalic and symmetric. Eyes: EOMs intact, no lid lag, and anicteric sclera Mouth: no lip lesions, mucus membranes moist Cardiovascular: regular rate and rhythm with normal S1S2 systolic murmur, positive posterior tibial pulses bilaterally, and cap refill < 2 seconds. Lungs: Respirations even, regular, and unlabored on room air. Lungs CTA bilaterally, no rhonchi, no rales, no wheezing, and no accessory muscle usage. Abdominal: soft, nontender to palpation, no guarding, no appreciable organomegaly Ext: ROM intact. No gross muscle atrophy, no edema, no contractures Neuro: Speech clear, face symmetrical and CN II-XII grossly intact with no noted focal neuro deficits Psych: Alert and oriented to person, place, time, and situation. Appropriate and pleasant affect. Assessment and Plan of Care: Acute on chronic lower back pain with BLE radiculopathies worse on left -Orthopedic surgery following, recommending conservative care -Pain management consulted -PT/OT consulted -Symptomatic care and pain management. -Fall precautions Urinary tract infection -Continue Rocephin -Follow up on urine cultures Hypertension -Monitor vital signs and continue daily medication regimen with amlodipine. CODE STATUS: Full code DVT prophylaxis: Xarelto Discussed with: Pt and RN Anticipated discharge date: Likely tomorrow morning, pending insurance authorization [facility] A total of 33 minutes was spent on the care of this complex patient more than 50% of the time was spent in counseling and care coordination. Objective - Vital Signs Vital signs: Vital Signs Temp 98.1 F 09/01/22 15:00 Pulse 71 09/01/22 15:00 Resp 18 09/01/22 15:00 BP 134/64 09/01/22 15:00 Pulse Ox 94 L 09/01/22 15:00 FiO2 Intake & Output 08/31/22 09/01/22 09/01/22 18:59 06:59 18:59 Intake Total 118 238 Output Total 66 1150 500 Balance 52 -1150 -262 Intake: Oral 118 238 Output: Urine 1150 500 Post Void Residual 66 Other: Voiding Method Indwelling Catheter External Catheter External Catheter # Voids 1 1 # Bowel Movements 1 1 - Labs CBC & Chem 7: 08/30/22 22:54 08/30/22 22:54
[2022-09-02] MEDS: SODIUM CHLORIDE 0.9% 1,000 ML IV SCH ×2 (01:13→23:34)
[2022-09-02] MEDS: prednisoLONE ACETATE 1% OPHTH DROPS 5 ML BTL LEFT EYE SCH ×6 (05:41→21:06)
[2022-09-02] MEDS: RIVAROXABAN 2.5 MG TABLET PO SCH ×2 (08:41→21:06)
[2022-09-02] MEDS: DICYCLOMINE 20 MG TAB PO SCH ×4 (08:41→21:06)
[2022-09-02] MEDS: amLODIPine 5 MG TAB PO SCH (08:42)
--- NOTE | 2022-09-02 18:31 | P.PN ---
Subjective Progress Note Date: 09/02/22 Hospital course: Patient is a very pleasant 87-year-old female with a past medical history of hypertension, GERD, PAD on anticoagulation with Xarelto, and chronic debility due to chronic low back pain with bilateral lower extremity radiculopathies secondary to reports of herniated disks. She presented to the emergency department with a chief complaint of increased lower back and left leg pain and weakness. The patient lives home alone and reports that she has a caregiver to assist with her needs. Patient states she typically ambulates with a walker or uses a wheelchair. upon arrival in the emergency department patient underwent full evaluation. CBC and CMP showing no significant abnormalities with the exception of mild hyponatremia with sodium of 131. Urinalysis was positive for nitrites however WBC count only 2. Patient was admitted under our services with consultation to orthopedic surgery and physical therapy. Physical exam: Patient seen and evaluated at bedside this morning around 11 AM. Patient was up in recliner and worked with physical therapy this morning. Patient reports mild pain in her back and leg in which she reports is currently "okay". Patient denies having any other new complaints or concerns at this time. Patient awaiting insurance authorization for discharge to [facility] at this time. Vital signs reviewed and stable. General: Nontoxic, no distress and appears stated age. Obese. Derm: Skin warm and dry, normal coloration for ethnicity. Head: Atraumatic, normocephalic and symmetric. Eyes: EOMs intact, no lid lag, and anicteric sclera Mouth: no lip lesions, mucus membranes moist Cardiovascular: regular rate and rhythm with normal S1S2 systolic murmur, positive posterior tibial pulses bilaterally, and cap refill < 2 seconds. Lungs: Respirations even, regular, and unlabored on room air. Lungs CTA bilaterally, no rhonchi, no rales, no wheezing, and no accessory muscle usage. Abdominal: soft, nontender to palpation, no guarding, no appreciable organomegaly Ext: ROM intact. No gross muscle atrophy, no edema, no contractures Neuro: Speech clear, face symmetrical and CN II-XII grossly intact with no noted focal neuro deficits Psych: Alert and oriented to person, place, time, and situation. Appropriate and pleasant affect. Assessment and Plan of Care: Acute on chronic lower back pain with BLE radiculopathies worse on left -Orthopedic surgery following, recommending conservative care -Pain management consulted -PT/OT consulted -Symptomatic care and pain management. -Fall precautions Urinary tract infection -Continue Rocephin -Follow up on urine cultures Hypertension -Monitor vital signs and continue daily medication regimen with amlodipine. CODE STATUS: Full code DVT prophylaxis: Alanrelheather Discussed with: Pt and RN Anticipated discharge date: Likely tomorrow morning, pending insurance aut horization Anticipated discharge place: correction facility for rehab, [facility] A total of 31 minutes was spent on the care of this complex patient more than 50% of the time was spent in counseling and care coordination. I reviewed the documentation as provided by the SALAZAR above, who is the original author of this note. I agree with the documented assessment and plan, with the following changes: none Objective - Vital Signs Vital signs: Vital Signs Temp 97.9 F 09/02/22 14:06 Pulse 70 09/02/22 14:06 Resp 20 09/02/22 14:06 BP 117/54 09/02/22 14:06 Pulse Ox 95 09/02/22 14:06 FiO2 Intake & Output 09/01/22 09/02/22 09/02/22 18:59 06:59 18:59 Intake Total 238 360 Output Total 500 700 Balance -262 -700 360 Intake: Oral 238 360 Output: Urine 500 700 Other: Voiding Method External Catheter External Catheter External Catheter # Voids 1 # Bowel Movements 1 - Labs CBC & Chem 7: 08/30/22 22:54 08/30/22 22:54
[2022-09-03] MEDS: prednisoLONE ACETATE 1% OPHTH DROPS 5 ML BTL LEFT EYE SCH ×6 (05:12→20:20)
[2022-09-03] MEDS: amLODIPine 5 MG TAB PO SCH (08:53)
[2022-09-03] MEDS: DICYCLOMINE 20 MG TAB PO SCH ×4 (08:53→20:19)
[2022-09-03] MEDS: RIVAROXABAN 2.5 MG TABLET PO SCH ×2 (08:53→20:19)
--- NOTE | 2022-09-03 14:35 | P.PN ---
Subjective Progress Note Date: 09/03/22 Hospital course: Patient is a very pleasant 87-year-old female with a past medical history of hypertension, GERD, PAD on anticoagulation with Xarelto, and chronic debility due to chronic low back pain with bilateral lower extremity radiculopathies secondary to reports of herniated disks. She presented to the emergency department with a chief complaint of increased lower back and left leg pain and weakness. The patient lives home alone and reports that she has a caregiver to assist with her needs. Patient states she typically ambulates with a walker or uses a wheelchair. upon arrival in the emergency department patient underwent full evaluation. CBC and CMP showing no significant abnormalities with the exception of mild hyponatremia with sodium of 131. Urinalysis was positive for nitrites however WBC count only 2. Patient was admitted under our services with consultation to orthopedic surgery and physical therapy. Physical exam: Patient seen and evaluated at bedside this morning around 9:30 AM. Patient was up in recliner and appeared to be resting comfortably. She reports back and leg pain controlled at this time bur states "I can still feel it". She continues to deny having any new complaints or concerns at this time and continues to await insurance authorization for discharge to [facility]. Per pillowcase cleaner, pt will remain here through the weekend. Vital signs reviewed and stable. General: Nontoxic, no distress and appears stated age. Obese. Derm: Skin warm and dry, normal coloration for ethnicity. Head: Atraumatic, normocephalic and symmetric. Eyes: EOMs intact, no lid lag, and anicteric sclera Mouth: no lip lesions, mucus membranes moist Cardiovascular: regular rate and rhythm with normal S1S2 systolic murmur, positive posterior tibial pulses bilaterally, and cap refill < 2 seconds. Lungs: Respirations even, regular, and unlabored on room air. Lungs CTA bilaterally, no rhonchi, no rales, no wheezing, and no accessory muscle usage. Abdominal: soft, nontender to palpation, no guarding, no appreciable organomegaly Ext: ROM intact. No gross muscle atrophy, no edema, no contractures Neuro: Speech clear, face symmetrical and CN II-XII grossly intact with no noted focal neuro deficits Psych: Alert and oriented to person, place, time, and situation. Appropriate and pleasant affect. Assessment and Plan of Care: Acute on chronic lower back pain with BLE radiculopathies worse on left -Orthopedic surgery following, recommending conservative care -Pain management consulted -PT/OT consulted -Symptomatic care and pain management. -Fall precautions Urinary tract infection, Completed course of IV antibiotics with Rocephin. Hypertension -Monitor vital signs and continue daily medication regimen with amlodipine. CODE STATUS: Full code DVT prophylaxis: Xarelto Discussed with: Pt and RN Anticipated discharge date: Pending insurance authorization Anticipated discharge place: correction facility for rehab, [facility] A total of 31 minutes was spent on the care of this complex patient more than 50% of the time was spent in counseling and care coordination. I reviewed the documentation as provided by the SALAZAR above, who is the original author of this note. I agree with the documented assessment and plan, with the following changes: none Objective - Vital Signs Vital signs: Vital Signs Temp 98.2 F 09/03/22 07:00 Pulse 67 09/03/22 07:00 Resp 18 09/03/22 07:00 BP 125/56 09/03/22 07:00 Pulse Ox 96 09/03/22 07:00 FiO2 Intake & Output 09/02/22 09/03/22 09/03/22 18:59 06:59 18:59 Intake Total 478 Output Total 450 1100 Balance 28 -1100 Intake: Oral 478 Output: Urine 450 1100 Other: Voiding Method External Catheter External Catheter External Catheter # Bowel Movements 0 - Labs CBC & Chem 7: 08/30/22 22:54 08/30/22 22:54
[2022-09-04] MEDS: SODIUM CHLORIDE 0.9% 1,000 ML IV SCH ×2 (01:05→20:52)
[2022-09-04] MEDS: prednisoLONE ACETATE 1% OPHTH DROPS 5 ML BTL LEFT EYE SCH ×6 (05:47→20:52)
[2022-09-04] MEDS: RIVAROXABAN 2.5 MG TABLET PO SCH ×2 (08:40→20:51)
[2022-09-04] MEDS: amLODIPine 5 MG TAB PO SCH (08:40)
[2022-09-04] MEDS: DICYCLOMINE 20 MG TAB PO SCH ×4 (08:41→20:52)
[2022-09-04] MEDS ORDERED: BENZOCAINE/MENTHOL LOZENG 1 EACH LOZENGE MUCOUS MEM PRN (13:06)
--- NOTE | 2022-09-04 18:39 | P.PN ---
Subjective Progress Note Date: 09/04/22 Hospital course: Patient is a very pleasant 87-year-old female with a past medical history of hypertension, GERD, PAD on anticoagulation with Xarelto, and chronic debility due to chronic low back pain with bilateral lower extremity radiculopathies secondary to reports of herniated disks. She presented to the emergency department with a chief complaint of increased lower back and left leg pain and weakness. The patient lives home alone and reports that she has a caregiver to assist with her needs. Patient states she typically ambulates with a walker or uses a wheelchair. upon arrival in the emergency department patient underwent full evaluation. CBC and CMP showing no significant abnormalities with the exception of mild hyponatremia with sodium of 131. Urinalysis was positive for nitrites however WBC count only 2. Patient was admitted under our services with consultation to orthopedic surgery and physical therapy. Physical exam: Patient seen and evaluated at bedside this morning. Patient was just washed up and being assisted up to ambulate with walker over to the chair in her room. Patient requires 2 person assist to stand. She reports having continued back and left leg pain. She continues to deny having any new complaints or concerns at this time and continues to await insurance authorization for discharge to [facility]. Vital signs reviewed and stable. General: Nontoxic, no distress and appears stated age. Obese. Derm: Skin warm and dry, normal coloration for ethnicity. Head: Atraumatic, normocephalic and symmetric. Eyes: EOMs intact, no lid lag, and anicteric sclera Mouth: no lip lesions, mucus membranes moist Cardiovascular: regular rate and rhythm with normal S1S2 systolic murmur, positive posterior tibial pulses bilaterally, and cap refill < 2 seconds. Lungs: Respirations even, regular, and unlabored on room air. Lungs CTA aury aterally, no rhonchi, no rales, no wheezing, and no accessory muscle usage. Abdominal: soft, nontender to palpation, no guarding, no appreciable organomegaly Ext: ROM intact. No gross muscle atrophy, no edema, no contractures Neuro: Speech clear, face symmetrical and CN II-XII grossly intact with no noted focal neuro deficits Psych: Alert and oriented to person, place, time, and situation. Appropriate and pleasant affect. Assessment and Plan of Care: Acute on chronic lower back pain with BLE radiculopathies worse on left -Orthopedic surgery following, recommending conservative care -Pain management consulted -PT/OT recommending SNF upon discharge -Symptomatic care and pain management. -Fall precautions Urinary tract infection, Completed course of IV antibiotics with Rocephin. Hypertension -Monitor vital signs and continue daily medication regimen with amlodipine. CODE STATUS: Full code DVT prophylaxis: Xarelto Discussed with: Pt and RN Anticipated discharge date: Pending insurance authorization Anticipated discharge place: long-term facility for rehab, [facility] A total of 31 minutes was spent on the care of this complex patient more than 50% of the time was spent in counseling and care coordination. .I reviewed the documentation as provided by the SALAZAR above, who is the original author of this note. I agree with the documented assessment and plan, with the following changes: none Objective - Vital Signs Vital signs: Vital Signs Temp 97.6 F 09/04/22 01:15 Pulse 71 09/04/22 01:15 Resp 17 09/04/22 01:15 BP 140/74 09/04/22 01:15 Pulse Ox 99 09/04/22 01:15 FiO2 Intake & Output 09/03/22 09/04/22 09/04/22 18:59 06:59 18:59 Intake Total 118 Output Total 650 400 Balance -532 -400 Intake: Oral 118 Output: Urine 650 400 Other: Voiding Method External Catheter External Catheter # Voids 1 1 # Bowel Movements 1 - Labs CBC & Chem 7: 08/30/22 22:54 08/30/22 22:54
[2022-09-04 22:14] VITALS: RESP 16
[2022-09-05] MEDS: prednisoLONE ACETATE 1% OPHTH DROPS 5 ML BTL LEFT EYE SCH ×4 (05:05→15:00)
[2022-09-05] MEDS: DICYCLOMINE 20 MG TAB PO SCH ×2 (07:28→12:08)
[2022-09-05] MEDS: amLODIPine 5 MG TAB PO SCH (07:28)
[2022-09-05] MEDS: RIVAROXABAN 2.5 MG TABLET PO SCH (07:28)
--- NOTE | 2022-09-05 14:02 | P.DS ---
Providers Date of admission: 08/31/22 00:42 Expected date of discharge: 09/05/22 Attending physician: Tammie Singh MD Consults: 08/31/22 03:16 Consult Physician Routine Consulting Provider: Reji Knight Consult Reason/Comments: Acute on chronic low back pain with radiculopathy Do you want consulting provider notified?: Yes, Notify in am Primary care physician: Chase Debbi [facility] Course: Discharge Diagnosis: Acute on chronic lower back pain with BLE radiculopathies worse on left, patient to be scheduled for outpatient epidural spinal injections as recommended by pain management for L3 and L4, recommending patient may need a series of injections up to 4 within a 12 month period to obtain optimal pain control. Urinary tract infection, Completed course of IV antibiotics with Rocephin. Hypertension. Monitor vital signs and continue daily medication regimen with amlodipine. PAD continue anticoagulation with Xarelto Hospital Course: Patient is a very pleasant 87-year-old female with a past medical history of hypertension, GERD, PAD on anticoagulation with Xarelto, and chronic debility due to chronic low back pain with bilateral lower extremity radiculopathies secondary to reports of herniated disks. She presented to the emergency department with a chief complaint of increased lower back and left leg pain and weakness. The patient lives home alone and reports that she has a caregiver to assist with her needs 3x a week. Patient states she typically ambulates with a walker or uses a wheelchair during long stretches. However reports recently her pain has significantly increased and she is having difficulties with even standing. Upon arrival in the emergency department patient underwent full evaluation. CBC and CMP showing no significant abnormalities with the exception of mild hyponatremia with sodium of 131. Urinalysis was positive for nitrites however WBC count only 2. Patient was admitted under our services with consultation to orthopedic surgery and physical therapy. Orthopedic surgery stating pt is not a candidate for surgical procedure at this time, recommending patient be evaluated by pain management. Pain management evaluated in recommending outpatient epidural spinal injections for L3 and L4, stating patient may need a series of injections up to 4 within a 12 month period to obtain optimal pain control accompanied by physical therapy. Spinal injections to be scheduled on an outpatient basis as patient will need to hold Xarelto for 5 days prior to surgical procedure. Patient evaluated by physical therapy, patient with moderate assistance needs, physical and occupational therapy recommending fpc facility placement upon discharge for continued PT/OT. Patient has been accepted to extended care [facility] and insurance authorization has been obtained. Patient medically stable for discharge to extended care facility at this time. Physical exam: Vital signs reviewed and stable. General: Nontoxic, no distress and appears stated age. Obese. Derm: Skin warm and dry, normal coloration for ethnicity. Head: Atraumatic, normocephalic and symmetric. Eyes: EOMs intact, no lid lag, and anicteric sclera Mouth: no lip lesions, mucus membranes moist Cardiovascular: regular rate and rhythm with normal S1S2 systolic murmur, positive posterior tibial pulses bilaterally, and cap refill < 2 seconds. Lungs: Respirations even, regular, and unlabored on room air. Lungs CTA bilaterally, no rhonchi, no rales, no wheezing, and no accessory muscle usage. Abdominal: soft, nontender to palpation, no guarding, no appreciable organomegaly Ext: ROM intact. No gross muscle atrophy, no edema, no contractures Neuro: Speech clear, face symmetrical and CN II-XII grossly intact with no noted focal neuro deficits Psych: Alert and oriented to person, place, time, and situation. Appropriate and pleasant affect. A total of 32 minutes of time were spent preparing this complex discharge summary. Pt was discharged on 09/05/22 at 2:04 PM .I reviewed the documentation as provided by the SALAZAR above, who is the original author of this note. I agree with the documented assessment and plan, with the following changes: none Patient Condition at Discharge: Stable Plan - Discharge Summary New Discharge Prescriptions: New Benzocaine/Menthol Lozeng [Cepacol lozenge] 1 each MUCOUS MEM Q4HR PRN l ozenge PRN Reason: Cough Acetaminophen Tab [Tylenol] 650 mg PO Q6HR PRN tab PRN Reason: Mild Pain Or Fever > 100.5 Continue amLODIPine [Norvasc] 5 mg PO QAM Dicyclomine [Bentyl] 20 mg PO QID Ergocalciferol [Vitamin D2 (1250 Mcg = 40986 Iu)] 1,250 mcg PO FR Rivaroxaban [Xarelto] 2.5 mg PO BID Prednisolone Acetate/Pf [Prednisolone Acet 1% Eye Drop] 1 drop LEFT EYE DIRECTED Acetaminophen-Codeine 300-30mg [Tylenol w/codeine #3] 1 tab PO Q4H PRN 3 Days #18 tablet PRN Reason: Pain Discontinued Azithromycin [Zithromax Z Pack] See Taper PO DIRECTED Discharge Medication List amLODIPine [Norvasc] 5 mg PO QAM 04/16/19 [History] Dicyclomine [Bentyl] 20 mg PO QID 08/31/22 [History] Ergocalciferol [Vitamin D2 (1250 Mcg = 31734 Iu)] 1,250 mcg PO FR 08/31/22 [History] Prednisolone Acetate/Pf [Prednisolone Acet 1% Eye Drop] 1 drop LEFT EYE DIRECTED 08/31/22 [History] Rivaroxaban [Xarelto] 2.5 mg PO BID 08/31/22 [History] Acetaminophen Tab [Tylenol] 650 mg PO Q6HR PRN tab 09/05/22 [Rx] Acetaminophen-Codeine 300-30mg [Tylenol w/codeine #3] 1 tab PO Q4H PRN 3 Days #18 tablet 09/05/22 [Rx] Benzocaine/Menthol Lozeng [Cepacol lozenge] 1 each MUCOUS MEM Q4HR PRN lozenge 09/05/22 [Rx] Follow up Appointment(s)/Referral(s): Chase Enriquez MD [Primary Care Provider] - 1-2 days Joanna Sparrow MD [STAFF PHYSICIAN] - 1 Week (Please schedule appointment to set up for epidural spinal injections prior to discharge. Pt must hold Xarelto prior to scheduled appointment for spinal epidural injection. ) Activity/Diet/Wound Care/Special Instructions: Activity: As tolerated. Take breaks as needed. Diet: Heart healthy and carb consistent diet. Avoid salts, or foods with hidden salts such as canned or boxed foods and frozen dinners. Extra salt makes your heart work harder and traps the fluid in your body for longer. Special Instructions: Take all of your medications as directed and remember to keep all of your doctor's appointments and follow-up as needed. Patient will need anticoagulant, Xarelto held for 5 days prior to any outpatient epidural procedures/injections. Thank you for allowing us to participate in your care, it was truly a pleasure having you for our patient!!! Discharge Disposition: TRANSFER TO SNF/ECF
[2022-09-05 15:35] VITALS: BP 148/67; PULSE 75; TEMP 97.4
== END 2022-09-05 16:32 ==
LOC: EC 22:06 → 6NMEDSUR 08-31 00:42
PROVIDERS: ADMIT Internal Medicine; ATTEND Internal Medicine
DX: M51.17 Intervertebral disc disorders with radiculopathy, lumbosacral region (principal); N39.0 Urinary tract infection, site not specified; I10 Essential (primary) hypertension; E87.1 Hypo-osmolality and hyponatremia; K21.9 Gastro-esophageal reflux disease without esophagitis; M54.50 Low back pain, unspecified; G89.29 Other chronic pain; I73.9 Peripheral vascular disease, unspecified; Z79.899 Other long term (current) drug therapy; Z88.0 Allergy status to penicillin; Z90.710 Acquired absence of both cervix and uterus; Z82.5 Family history of asthma and other chronic lower respiratory diseases; Z87.442 Personal history of urinary calculi; Z79.01 Long term (current) use of anticoagulants
CPT/HCPCS: 96365; 96366 ×2; 96372; 96361; 96375; 99285; 36415; 93005; 97530; 97162; 97535; 97166; 80053; 85025; 81001; G0378 ×6; J0696 ×4; J1644

== ENCOUNTER 2022-09-29 07:51 | Day surgery (SDC) | payer MEDICARE ==
[~2022-09-29 07:51] MED LIST changes: -DEXAMETHASONE SOD PHOSPHATE 10 MG/ML 1 ML VIAL IV ONE; -HEPARIN SODIUM,PORCINE 5,000 UNIT/ML 1 ML VIAL SQ ONE; -HYDROmorphone 0.5 MG/0.5 ML SYRINGE IVP PRN; -INDOCYANINE GREEN 25 MG VIAL IV ONE; +LIDOCAINE 1% (10MG/ML) FOR IV START INTRADERMA PRN; -MIDAZOLAM 2 MG/2 ML VIAL IV PRN; -ONDANSETRON 4 MG/2 ML VIAL IVP ONE
[2022-09-29 08:30] VITALS: TEMP 98.2
[2022-09-29] MEDS ORDERED: LACTATED RINGERS 1,000 ML IV ONE (08:45)
[2022-09-29] MEDS ORDERED: IOPAMIDOL M200 10 ML VIAL ONE (09:08)
[2022-09-29] MEDS ORDERED: MIDAZOLAM 2 MG/2 ML VIAL ONE (09:08)
[2022-09-29] MEDS ORDERED: methylPREDNISolone ACETATE 40 MG/ML 1 ML VIAL ONE (09:08)
--- NOTE | 2022-09-29 09:21 | P.PCN ---
Date of Procedure: 09/29/22 Procedure(s) Performed: PREOPERATIVE DIAGNOSIS: 1- Lumbar Degenerative Disc Diseases 2-Lumbar spondylosis with Facet arthropathy without myelopathy. POSTOPERATIVE DIAGNOSIS: Same as preop diagnosis. PROCEDURE 1. Lumbar epidural steroid injection under fluoroscopic guidance at the L2-3 level. (Fluoroscopy imaging was available in radiology department) 2. Lumbar epidurogram. ANESTHESIA: moderate sedation with intravenous Versed 1 mg . Sedation start time : 0 913 Sedation end time : 0 918 EBL: Minimal PROCEDURE INDICATION: The patient with low back pain and radiculitis symptoms unresponsive to conservative treatment. Fluoroscopy was used to optimize visualization of the needle placement and to maximize safety. PROCEDURE DESCRIPTION / TECHNIQUE: The patient was seen and identified in the preoperative area. Risks, benefits, complications including but not limited to infections ,bleeding ,allergic reaction to the medications ,nerve damage and not complete pain releife , and alternatives were discussed with the patient. The patient agreed to proceed with the procedure and signed the consent. IV was started, and vital signs were stable. Patient was taken to the OR and time out was completed. The patient was placed in the prone position on procedure table and a pillow was placed under the abdomen to reduce lumbar lordosis. The lumbosacral area was prepped and draped in the usual sterile fashion.ere closely monitored during the procedure. Conscious sedation was used during the procedure to decrease patients anxiety. Vital signs was monitered during the entire procedure. Using anterior-posterior fluoroscopy, the L2-3 interlaminar space was identified and the skin over this site was marked and then infiltrated with 1% lidocaine subcutaneously. Subsequently, a 20-gauge Tuohy epidural needle was inserted and advanced toward the epidural space using the ``Loss of resistance technique and guided by AP and lateral fluoroscopy. The correct needle position in the epidural space was verified with the injection of 2 mL of the water soluble contrast dye Isovue 200 contrast and observing an excellent epidurogram with the epidural spread of the dye, after negative aspiration for blood and CSF and in the absence of paresthesias. Again after negative aspiration, a 6 ml mixture containing 40 mg of Depo-medrol ( Preservetive Free ), and 2 ml of preservative free Normal Saline, and 2 ml of preservative free lidocaine 1% solution was injected and a washout of epidurogram was seen. Needle was withdrawn intact, skin was cleansed, and bandages were applied. COMPLICATIONS: None DISPOSITION / PLANS: The patient was placed in a supine position and transferred to the recovery area in a stable condition for observation. There was no evidence of lower extremity motor or sensory deficit after the procedure. Patient was discharged from the recovery room after meeting discharge criteria. Home discharge instructions were given to the patient by the staff. The patient was reexamined prior to discharge. The patient will schedule a follow up in the clinic in 2-4 weeks. Patient takes Xeralto and the last dose was taking more than 72 hours ago
--- NOTE | 2022-09-29 09:31 | FL ---
EXAMINATION TYPE: FL guided pain mgmt statistic DATE OF EXAM: 09/29/2022 HISTORY: Fluoroscopy time 1 seconds of fluoroscopy provided. IMPRESSION: 1. Fluoroscopy time.
[2022-09-29] MEDS ORDERED: IV FLUID CONTINUATION 1,000 ML IV ONE (09:41)
[2022-09-29 09:47] VITALS: BP 128/72; PULSE 73; RESP 18
== END 2022-09-29 10:27 ==
LOC: ORPAIN 07:51
PROVIDERS: ATTEND Specialist
DX: M51.16 Intervertebral disc disorders with radiculopathy, lumbar region (principal); M47.26 Other spondylosis with radiculopathy, lumbar region; Z88.0 Allergy status to penicillin
CPT/HCPCS: 62323; J2250; J1030; Q9966

== ENCOUNTER → 2022-10-27 | Outpatient (CLI) | payer MEDICARE ==
[2022-10-27 14:53] VITALS: BP 123/68; PULSE 74; RESP 16; TEMP 98
--- NOTE | 2022-11-02 07:35 | P.PAINPG ---
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 Pt states she experienced 70 % pain relief x 4 wks s/p procedure. Pain level is currently at 8 /10 in intensity, constant, lower lumbar spine, dull/ achy in character w shooting towards the BLEs. Pain is provoked by bending, twisting, lifting. Pain is alleviated with PT x 3 wks which she is currently in. States medications & topicals do not alleviate pain. Interventional pain procedures completed include RADHA L2-3 Patient is currently on Denies Patient denies any side effects of the medication(s), denies excessive drowsiness or sleepiness, denies suicidal ideation and reports that the current pain medication is helping to control the pain and improve activities of daily living. Patient denies any motor or sensory deficits. Patient denies any fever or night sweats, denies any change in the bowel movements or urination. Physical Examination: -Constitutional: Cooperative. Not in acute distress . - Neurologic: Cranial nerve II to XII intact. No focal neurological deficits. - Psychatric: Alert & oriented x 3. Matching mood & appropriate affect. Judgment and insight intact. - Musculoskeletal: Cervical spine: Muscle bulk/ tone/ strength in the bilateral upper extremities normal Vertebral body tenderness to palpation over Spurling test positive Distraction test positive Facet loading test positive Thoracic spine Muscle bulk / tone/ strength in the bilateral paraspinal muscles normal Vertebral body tender to palpation over Facet loading test positive Lumbar spine: Motor bulk/ tone/ strength lower extremities , thigh and legs : 5/5 Deep tendon reflexes : Normal Knee Jerk. Normal Ankle Jerk . Vertebral body tenderness to palpation over L3 Lumbar Facet Loading Test positive Straight Leg Raise: positive at 30 degrees right side/ left side Gaenslen's Test positive Sacral spine : Severe tenderness over the Sacroiliac joint: right side / left side Range of motion: Flexion of the lumbar spine <60 degrees Range of motion: Extension of the lumbar spine <20 degrees Gaenslen's Test positive Philly test: positive right side / left side Thigh Thrust Test Sacral Thrust Test Assessment and plan: Chronic low back pain secondary to lumbar degenerative disc disease, spondylosis with facet arthropathy without myelopathy Recommendation of RADHA L2-L3 #2. May need a series of injections, up to 3 within a 6 mo period, for optimal pain relief. Risks, benefits of procedure discussed and pt verbalized understanding. Admits to anticoagulant use or medical history of diabetes. Protocol for discontinuation/ continuation of medications phyllis procedure discussed. All patient questions answered I have spent less than 30 minutes on patient care today. Dr Sparrow was a vailable by phone for the evaluation of this patient. The time was used to review the medical records including relevant urine studies and Prescription history (MAPs), review of the available imaging, evaluation and examination of the patient, coordination of care with the medical staff and if applicable referring physicians, as well as creation of the medical record PQRS Narrative: Smoking Status Never smoker Hx Alcohol Use (MH) No Home Medications: Ambulatory Orders amLODIPine [Norvasc] 5 mg PO QAM 04/16/19 Dicyclomine [Bentyl] 20 mg PO QID 08/31/22 Ergocalciferol [Vitamin D2 (1250 Mcg = 81543 Iu)] 1,250 mcg PO FR 08/31/22 Rivaroxaban [Xarelto] 2.5 mg PO BID 08/31/22 Acetaminophen-Codeine 300-30mg [Tylenol w/codeine #3] 1 tab PO Q4H PRN 3 Days #18 tablet 09/05/22 Acetaminophen [Tylenol Arthritis] 650 mg PO Q6H PRN 09/27/22 Controlled Substance Measures - Controlled Substance Measures Is patient prescribed a controlled substance at discharge?: No
== END ==
LOC: PNWHC3 10:57
PROVIDERS: ATTEND Specialist
DX: M47.816 Spondylosis without myelopathy or radiculopathy, lumbar region (principal); M51.36 Other intervertebral disc degeneration, lumbar region; G89.29 Other chronic pain; Z88.0 Allergy status to penicillin
CPT/HCPCS: 99211

== ENCOUNTER 2022-12-06 12:27 | Day surgery (SDC) | payer MEDICARE ==
[~2022-12-06 12:27] MED LIST changes: -LIDOCAINE 1% (10MG/ML) FOR IV START INTRADERMA PRN
[2022-12-06 13:23] VITALS: RESP 16; TEMP 97.2
[2022-12-06] MEDS ORDERED: IOPAMIDOL M200 10 ML VIAL ONE (13:33)
[2022-12-06] MEDS ORDERED: methylPREDNISolone ACETATE 80 MG/ML 1 ML VIAL ONE (13:33)
--- NOTE | 2022-12-06 13:46 | P.PCN ---
Date of Procedure: 12/06/22 Description of Procedure: PREOPERATIVE DIAGNOSIS: lumbar radiculopathy POSTOPERATIVE DIAGNOSIS: Lumbar radiculopathy PROCEDURE 1. Lumbar epidural steroid injection under fluoroscopic guidance at the L2-3 level. 2. Lumbar epidurogram. Imaging: Fluoroscopy was used, images where saved to the medical record ANESTHESIA: local only EBL: Minimal PROCEDURE INDICATION: The patient with low back pain and radiculitis symptoms unresponsive to conservative treatment. Fluoroscopy was used to optimize visualization of the needle placement and to maximize safety. PROCEDURE DESCRIPTION / TECHNIQUE: The patient was seen and identified in the preoperative area. Risks, benefits, complications including but not limited to infections, bleeding, allergic shannon ction to medications, nerve damage and incomplete pain relief, as well as alternatives to the procedure were discussed with the patient. The patient agreed to proceed with the procedure and signed the consent. IV was started if indicated above, and vital signs were stable. Patient was taken to the OR and time out was completed. The patient was placed in the prone position on procedure table and a pillow was placed under the abdomen to reduce lumbar lordosis. The lumbosacral area was prepped and draped in the usual sterile fashion. Vitals were closely monitored during the procedure. Using anterior-posterior fluoroscopy, the L2-3 interlaminar space was identified and the skin over this site was marked and then infiltrated with 1% lidocaine subcutaneously. Subsequently, a 20-gauge Tuohy epidural needle was inserted and advanced toward the epidural space using the Loss of resistance technique and guided by AP and lateral fluoroscopy. The correct needle position in the epidural space was verified with the injection of 1 mL of Omnipaque 180 contrast to observe an acceptable epidurogram, after negative aspiration for blood and CSF and in the absence of paresthesias. Again after negative aspiration, a 3 ml mixture containing 40mg of depomedrol and 2 ml of preservative free Normal Saline was injected and a washout of epidurogram was seen. Needle was withdrawn intact, skin was cleansed, and bandages were applied. COMPLICATIONS: None DISPOSITION / PLANS: The patient was placed in a supine position and transferred to the recovery area in a stable condition for observation. There was no evidence of lower extremity motor or sensory deficit after the procedure. Patient was discharged from the recovery room after meeting discharge criteria. Home discharge instructions were given to the patient by the staff. The patient was reexamined prior to discharge. The patient will follow up as directed.
[2022-12-06 14:07] VITALS: BP 127/79; PULSE 80
--- NOTE | 2022-12-06 15:07 | FL ---
EXAMINATION TYPE: FL guided pain mgmt statistic DATE OF EXAM: 12/06/2022 HISTORY: Fluoroscopy time 4 seconds of fluoroscopy provided. IMPRESSION: 1. Fluoroscopy time.
== END 2022-12-06 14:18 | disposition home or self-care (01) ==
LOC: ORPAIN 12:27
PROVIDERS: ATTEND Hospitalist
DX: M54.16 Radiculopathy, lumbar region (principal); Z88.0 Allergy status to penicillin
CPT/HCPCS: 62323

== ENCOUNTER 2023-04-21 09:38 | Emergency (ER) | payer MEDICARE ==
[2023-04-21] MEDS ORDERED: HYDROcodone/APAP 5-325MG 1 EACH TAB PO STA (09:59)
--- NOTE | 2023-04-21 10:16 | ED ---
Skin/Abscess/FB HPI - General Chief complaint: Skin/Abscess/Foreign Body Stated complaint: Rash Time Seen by Provider: 04/21/23 09:41 Source: patient, RN notes reviewed Mode of arrival: EMS Limitations: no limitations - History of Present Illness Initial comments: This is an 87-year-old female who presents to the emergency department for a rash to her buttocks. States that in 2013 she had bladder surgery at [facility] that had multiple complications. Since then she has been unable to care for herself and is essentially bedbound. As a result of this, she has developed problems with ulcers to her lower back and buttocks. Currently complaining of wounds to the bilateral buttocks that she states has become more problematic over the last couple of years. She lives at [facility] and the patient states that she has a nurse come over a couple of times a week, who puts bandages on the wounds. She has not had any fevers. States that this is very painful. Denies any fevers, chills, sore throat, cough, dyspnea, chest pain, palpitations, abdominal pain, nausea, vomiting, diarrhea, back pain, or headaches. MD complaint: rash - Related Data Home Medications Medication Instructions Recorded Confirmed amLODIPine [Norvasc] 5 mg PO QAM 04/16/19 01/20/23 Previous Rx's Medication Instructions Recorded HYDROcodone/APAP 5-325MG [Archer 1 each PO Q4HR PRN #18 tab 01/24/23 5-325] Sulfamethox-Tmp 800-160Mg [Bactrim 1 tab PO Q12HR #8 tab 01/24/23 DS 800-160 mg] methylPREDNISolone Dose Pack 4 mg PO DIRECTED #1 packet 01/24/23 [Medrol Dose Pack] Bacitracin Zinc Oint 1 applic TOPICAL BID #28 gm 04/21/23 Allergies Allergy/AdvReac Type Severity Reaction Status Date / Time Penicillins Allergy Rash/Hives Verified 04/21/23 09:41 Review of Systems ROS Statement: Those systems with pertinent positive or pertinent negative responses have been documented in the HPI. ROS Other: All systems not noted in ROS Statement are negative. Past Medical History Past Medical History: GERD/Reflux, Hypertension, Osteoarthritis (OA) Additional Past Medical History / Comment(s): gallbladder stones and kidney stones,Chronic sinus problems, limited mobility (wheelchair), recent adm. to [facility] for back pain & weakness, unable to walk, basically is bedbound at this time. constant leg pain bulging/herniated discs History of Any Multi-Drug Resistant Organisms: None Reported Past Surgical History: Bladder Surgery, Hernia Repair, Hysterectomy, Orthopedic Surgery Additional Past Surgical History / Comment(s): R leg fracture with surgery/hardware-since removed, R hip fx with ORIF, R knee arthroscopies, abdominal hernia repair, ESS/septoplasty, bladder suspension. Past Anesthesia/Blood Transfusion Reactions: No Reported Reaction Additional Past Anesthesia/Blood Transfusion Reaction / Comment(s): no problems with prior blood transfusion Past Psychological History: No Psychological Hx Reported Smoking Status: Never smoker Past Alcohol Use History: None Reported Past Drug Use History: None Reported - Past Family History Father Family Medical History: COPD Mother Family Medical History: No Reported History Additional Family Medical History / Comment(s): Mother was healthy General Exam Limitations: no limitations General appearance: alert, in no apparent distress Head exam: Present: atraumatic, normocephalic, normal inspection Respiratory exam: Present: normal lung sounds bilaterally. Absent: respiratory distress, wheezes, rales, rhonchi, stridor Cardiovascular Exam: Present: regular rate, normal rhythm, normal heart sounds. Absent: systolic murmur, diastolic murmur, rubs, gallop, clicks Neurological exam: Present: alert, oriented X3, CN II-XII intact Psychiatric exam: Present: normal affect, normal mood Skin exam: Present: other (Mildly erythematous rash with peeling to the bila teral buttocks. Stage 1 fairly superficial wound measuring approximately 2 cm within the rash. Tenderness to palpation.) Course Vital Signs 04/21/23 04/21/23 09:41 12:14 Temperature 97.8 F 98.1 F Pulse Rate 64 78 Respiratory 16 18 Rate Blood Pressure 172/76 157/72 O2 Sat by Pulse 97 97 Oximetry Medical Decision Making - Medical Decision Making This is an 87-year-old female who presents to the emergency department for a rash on her buttocks. Was pt. sent in by a medical professional or institution? @ -No Did you speak to anyone other than the patient for history? @ -No Did you review nursing and triage notes? @ -I disagree with the aspect of the groin rash. There is no rash on her groin. Were old charts reviewed? @ -No Differential Diagnosis? @ -Differential Buttocks Rash: Cellulitis, pressure ulcer, skin irritation, eczema, this is not meant to be an all-inclusive list. EKG interpreted by me (3pts min.)? @ -Not obtained X-rays interpreted by me (1pt min.)? @ -Not obtained CT interpreted by me (1pt min.)? @ -Not obtained U/S interpreted by me (1pt. min.)? @ -Not obtained What testing was considered but not performed? (CT, X-rays, U/S, labs)? Why? @ -None What meds were considered but not given? Why? @ -None Did you discuss the management of the patient with other professionals? @ -No Did you reconcile home meds? @ -No Was smoking cessation discussed for >3mins.? @ -No Was critical care preformed (if so, how long)? @ -No Were there social determinants of health that impacted care today? How? (Homelessness, low income, unemployed, alcoholism, drug addiction, transportation, low edu. Level, literacy, decrease access to med. care, nursing home, rehab)? @ -No Was there de-escalation of care discussed even if they declined? (Discuss DNR or withdrawal of care, Hospice)? @ -No What co-morbidities impacted this encounter? (DM, HTN, Smoking, COPD, CAD, Cancer, CVA, Hep., AIDS, mental health diagnosis, sleep apnea, morbid obesity)? @ -Immobility Was patient admitted / discharged? @ -Discharged. Physical exam of the wounds on her buttocks appear to be related to irritation and pressure, as the patient is largely bedbound. There are no deep ulcerations or cellulitic appearing areas. Lab work was also obtained which was found to be nonactionable. Pain was controlled in the emergency department. Discussed with the patient that she needs to be using a barrier cream to reduce the risk of infection and prevent these from worsening. Bacitracin zinc ointment was applied in the emergency department and a prescription for this was provided. Wound care instructions were reviewed. Advised ibuprofen and Tylenol as needed for pain relief. Patient expresses understanding with regards to these instructions and is comfortable with discharge home. Undiagnosed new problem with uncertain prognosis? @ -None Drug Therapy requiring intensive monitoring for toxicity (Heparin, Nitro, Insulin, Cardizem)? @ -None Were any procedures done? @ -None Diagnosis/symptom? @ -Pressure sore on buttocks Acute, or Chronic, or Acute on Chronic? @ -Chronic Uncomplicated (without systemic symptoms) or Complicated (systemic symptoms)? @ -Uncomplicated Side effects of treatment? @ -None Exacerbation, Progression, or Severe Exacerbation] @ -Stable Poses a threat to life or bodily function? @ -No Return precautions reviewed in depth, the patient is instructed to return to the emergency department with any new, worsening, or concerning symptoms. Patient verbalized understanding. This case was discussed in detail with the attending ED physician, Dr. Arita. Presentation, findings, and treatment plan discussed in detail as well. - Lab Data Result diagrams: 04/21/23 10:41 04/21/23 10:41 Lab Results 04/21/23 04/21/23 04/21/23 Range/Units 10:41 10:41 10:41 WBC 5.8 (3.8-10.6) k/uL RBC 4.40 (3.80-5.40) m/uL Hgb 13.4 (11.4-16.0) gm/dL Hct 41.1 (34.0-46.0) % MCV 93.5 (80.0-100.0) fL MCH 30.4 (25.0-35.0) pg MCHC 32.6 (31.0-37.0) g/dL RDW 12.7 (11.5-15.5) % Plt Count 204 (150-450) k/uL MPV 8.5 Neutrophils % 67 % Lymphocytes % 22 % Monocytes % 5 % Eosinophils % 4 % Basophils % 0 % Neutrophils # 3.9 (1.3-7.7) k/uL Lymphocytes # 1.3 (1.0-4.8) k/uL Monocytes # 0.3 (0-1.0) k/uL Eosinophils # 0.2 (0-0.7) k/uL Basophils # 0.0 (0-0.2) k/uL Sodium 137 (137-145) mmol/L Potassium 4.1 (3.5-5.1) mmol/L Chloride 103 (98-107) mmol/L Carbon Dioxide 27 (22-30) mmol/L Anion Gap 7 mmol/L BUN 17 (7-17) mg/dL Creatinine 0.70 (0.52-1.04) mg/dL Est GFR (CKD-EPI)AfAm >90 (>60 ml/min/1.73 sqM) Est GFR (CKD-EPI)NonAf 79 (>60 ml/min/1.73 sqM) Glucose 94 (74-99) mg/dL Plasma Lactic Acid Handy 1.1 (0.7-2.0) mmol/L Calcium 8.8 (8.4-10.2) mg/dL Total Bilirubin 0.4 (0.2-1.3) mg/dL AST 21 (14-36) U/L ALT 7 (4-34) U/L Alkaline Phosphatase 91 (38-126) U/L C-Reactive Protein 1.6 H (<1.0) mg/dL Total Protein 6.7 (6.3-8.2) g/dL Albumin 3.5 (3.5-5.0) g/dL Disposition Clinical Impression: Pressure sore on buttocks Disposition: HOME SELF-CARE Instructions (If sedation given, give patient instructions): Zinc Oxide (On the skin), How to Prevent Pressure Injuries (ED), Pressure Injury (ED) Additional Instructions: Return to the emergency department with any new, worsening, or concerning symptoms. The bacitracin zinc ointment should be applied twice daily to reduce the risk of infection and worsening of the wounds. Alternate with ibuprofen and Tylenol as needed for pain relief. Follow up with your primary care provider in 1-2 days. Prescriptions: Bacitracin Zinc Oint 1 applic TOPICAL BID #28 gm Is patient prescribed a controlled substance at d/c from ED?: No Referrals: Chase Enriquez MD [Primary Care Provider] - 1-2 days
[2023-04-21 10:58] LABS: Basophils % (A) 0 %; Eosinophils # (A) 0.2 k/uL (0-0.7); Eosinophils % (A) 4 %; HCT 41.1 % (34.0-46.0); HGB 13.4 gm/dL (11.4-16.0); Lymphocytes # (A) 1.3 k/uL (1.0-4.8); Lymphocytes % (A) 22 %; MCH 30.4 pg (25.0-35.0); MCHC 32.6 g/dL (31.0-37.0); MCV 93.5 fL (80.0-100.0); Mean Platelet Volume 8.5; Monocytes # (A) 0.3 k/uL (0-1.0); Monocytes % (A) 5 %; Neutrophils # (A) 3.9 k/uL (1.3-7.7); Neutrophils % (A) 67 %; Platelet Count 204 k/uL (150-450); RDW 12.7 % (11.5-15.5); WBC 5.8 k/uL (3.8-10.6)
[2023-04-21 11:09] LABS: ALT 7 U/L (4-34); AST 21 U/L (14-36); African American GFR (CKD) >90 (>60 ml/min/1.73 sqM); Albumin 3.5 g/dL (3.5-5.0); Alkaline Phosphatase 91 U/L (38-126); Anion Gap 7 mmol/L; Blood Urea Nitrogen 17 mg/dL (7-17); C Reactive Protein 1.6 mg/dL (<1.0); Calcium 8.8 mg/dL (8.4-10.2); Carbon Dioxide 27 mmol/L (22-30); Chloride 103 mmol/L (98-107); Glucose 94 mg/dL (74-99); Non-African American GFR(CKD) 79 (>60 ml/min/1.73 sqM); Potassium 4.1 mmol/L (3.5-5.1); Sodium 137 mmol/L (137-145); Total Bilirubin 0.4 mg/dL (0.2-1.3); Total Protein 6.7 g/dL (6.3-8.2)
[2023-04-21] MEDS ORDERED: BACITRACIN ZINC 500 UNIT/GM OINT 28.4 GM TUBE TOPICAL ONE (11:31)
[2023-04-21] MEDS: ZINC OXIDE 20% OINT 28.4 GM TUBE TOPICAL ONE ×2 (12:12→15:20)
[2023-04-21 12:16] VITALS: BP 157/72; PULSE 78; RESP 18; TEMP 98.1
== END 2023-04-21 15:25 | disposition home or self-care (01) ==
LOC: EC 09:38
DX: L89.311 Pressure ulcer of right buttock, stage 1 (principal); L89.321 Pressure ulcer of left buttock, stage 1; I10 Essential (primary) hypertension; Z79.899 Other long term (current) drug therapy; Z88.0 Allergy status to penicillin
CPT/HCPCS: 36415; 80053; 83605; 85025; 86140; 99284

== ENCOUNTER 2023-08-25 18:20 | Observation (INO) | payer MEDICARE ==
[2023-08-25] MEDS ORDERED: SODIUM CHLORIDE 0.9% 1,000 ML IV STA (18:40)
--- NOTE | 2023-08-25 18:44 | ED ---
General Adult HPI - General Chief complaint: Syncope Stated complaint: syncope Time Seen by Provider: 08/25/23 18:23 Source: patient, EMS, RN notes reviewed Mode of arrival: EMS Limitations: no limitations - History of Present Illness Initial comments: Patient is a pleasant 88-year-old female presenting to the emergency department following a couple episode. Patient does not recall the episode. Patient was eating at the time. Patient denies any injury. Patient states she felt fine before and afterwards except for did have some nausea. Patient did receive some medicine by EMS for this and is currently symptom-free. No headache or confusion. Patient does not walk as she has chronic leg weakness. No new weakness. No chest pain or dyspnea. No abdominal or back pain. - Related Data Home Medications Medication Instructions Recorded Confirmed amLODIPine [Norvasc] 5 mg PO DAILY 04/16/19 08/25/23 Allergies Allergy/AdvReac Type Severity Reaction Status Date / Time Penicillins Allergy Rash/Hives Verified 08/25/23 19:48 Review of Systems ROS Statement: Those systems with pertinent positive or pertinent negative responses have been documented in the HPI. ROS Other: All systems not noted in ROS Statement are negative. Constitutional: Denies: fever Eyes: Denies: eye pain ENT: Denies: ear pain Respiratory: Denies: cough Cardiovascular: Denies: chest pain Endocrine: Denies: fatigue Gastrointestinal: Reports: as per HPI. Denies: abdominal pain Musculoskeletal: Denies: back pain Neurological: Denies: headache, weakness, confusion Past Medical History Past Medical History: GERD/Reflux, Hypertension, Osteoarthritis (OA) Additional Past Medical History / Comment(s): gallbladder stones and kidney stones,Chronic sinus problems, limited mobility (wheelchair), recent adm. to [facility] for back pain & weakness, unable to walk, basically is bedbound at this time. constant leg pain bulging/herniated discs History of Any Multi-Drug Resistant Organisms: None Reported Past Surgical History: Bladder Surgery, Hernia Repair, Hysterectomy, Orthopedic Surgery Additional Past Surgical History / Comment(s): R leg fracture with surgery/hardware-since removed, R hip fx with ORIF, R knee arthroscopies, abdominal hernia repair, ESS/septoplasty, bladder suspension. Past Anesthesia/Blood Transfusion Reactions: No Reported Reaction Additional Past Anesthesia/Blood Transfusion Reaction / Comment(s): no problems with prior blood transfusion Past Psychological History: No Psychological Hx Reported Smoking Status: Never smoker Past Alcohol Use History: None Reported Past Drug Use History: None Reported - Past Family History Father Family Medical History: COPD Mother Family Medical History: No Reported History Additional Family Medical History / Comment(s): Mother was healthy General Exam Limitations: no limitations General appearance: alert, in no apparent distress Head exam: Present: atraumatic, normocephalic Eye exam: Present: normal appearance, PERRL, EOMI ENT exam: Present: normal oropharynx Neck exam: Present: normal inspection. Absent: tenderness, meningismus Respiratory exam: Present: normal lung sounds bilaterally Cardiovascular Exam: Present: regular rate, normal rhythm Expanded Peripheral pulses: 2+: Radial (R), Radial (L) GI/Abdominal exam: Present: soft. Absent: tenderness Extremities exam: Present: normal inspection. Absent: pedal edema, calf tenderness Neurological exam: Present: alert, oriented X3, CN II-XII intact Expanded Neurological exam: Present: protecting the airway Speech: Present: fluid speech Motor strength exam: RUE: 5, LUE: 5, RLE: 2/1, LLE: 2/1 Eye Response: (4) open spontaneously Motor Response: (6) obeys commands Verbal Response: (5) oriented Psychiatric exam: Present: normal affect, normal mood Skin exam: Present: normal color Course Vital Signs 08/25/23 08/25/23 18:28 19:26 Temperature 98.3 F Pulse Rate 71 68 Respiratory 18 18 Rate Blood Pressure 139/58 O2 Sat by Pulse 97 93 L Oximetry EKG Findings - EKG Results: EKG: interpreted by ERMD (Nonspecific ST-T), sinus rhythm, normal axis, normal QRS Medical Decision Making - Medical Decision Making Was pt. sent in by a medical professional or institution (, PA, [employer], urgent care, hospital, or fpc...) When possible be specific @ -Patient was sent from fpc. Did you speak to anyone other than the patient for history (EMS, parent, family, police, friend...)? What history was obtained from this source @ -Nurse L spine history you review nursing and triage notes (agree or disagree)? Why? @ -[I rviewed and agree with nursing and triage notes] Wee old charts reviewed (outside hosp., previous admission, EMS record, old EKG, old radiological studies, urgent care reports/EKG's, fpc records)? Report findings @ -[No ld charts were reviewed] Diferential Diagnosis (chest pain, altered mental status, abdominal pain women, abdominal pain men, vaginal bleeding, weakness, fever, dyspnea, syncope, headache, dizziness, GI bleed, back pain, seizure, CVA, palpatations, mental health, musculoskeletal)? @ -Differential Syncope: Valvular disease, hypertrophic cardiomyopathy, pulmonary embolism, tamponade, tachycardia, bradycardia, MT, hypovolemia, hemorrhage, dissection, anemia, intracranial hemorrhage, seizure, hypoglycemia, carbon monoxide poisoning, this is not meant to be an all-inclusive list.e EKG interpreted by me (3pts min.). @ -[As darian] X-ays interpreted by me (1pt min.). @ -[Hypoventilation with borderline cardiomegaly. Some increased interstitial markings. ] CT interpreted by me (1pt min.). @ -[Report reviewed ] U/S interpreted by me (1pt. min.). @ -[Non done] Wht testing was considered but not performed or refused? (CT, X-rays, U/S, labs)? Why? @ -[Non] Wht meds were considered but not given or refused? Why? @ -[Non] Di you discuss the management of the patient with other professionals (professionals i.e. , PA, [employer], lab, RT, psych nurse, director of social work, mussel farmer, teacher, driver's license reviewing officer, case assistant)? Give summary @ -[Case was discussed with Dr. Cool, who will admit, Dr. Enriquez]Wa smoking cessation discussed for >3mins.? @ -[No]Wa critical care preformed (if so, how long)? @ -[No]Wee there social determinants of health that impacted care today? How? (Homelessness, low income, unemployed, alcoholism, drug addiction, transportation, low edu. Level, literacy, decrease access to med. care, care home, rehab)? @ -[No]Wa there de-escalation of care discussed even if they declined (Discuss DNR or withdrawal of care, Hospice)? DNR status @ -[No]Wht co-morbidities impacted this encounter? (DM, HTN, Smoking, COPD, CAD, Cancer, CVA, ARF, Chemo, Hep., AIDS, mental health diagnosis, sleep apnea, morbid obesity)? @ -[Non] Wa patient admitted / discharged? Hospital course, mention meds given and route, prescriptions, significant lab abnormalities, going to OR and other pertinent info. @ -[Patient reevaluated and resting comfortably in bed. Patient remained symptom-free. Patient updated on results and plan. Patient will be admitted with neurology consult secondary to questionable brain CT results. ndiagnosed new problem with uncertain prognosis? @ -[No]Drg Therapy requiring intensive monitoring for toxicity (Heparin, Nitro, Insulin, Cardizem)? @ -[No]Wee any procedures done? @ -[No]Dignosis/symptom? @ -[Syncope koi, or Chronic, or Acute on Chronic? @ -[Acute complicated (without systemic symptoms) or Complicated (systemic symptoms)? @ -[defult] Sie effects of treatment? @ -[No]Excerbation, Progression, or Severe Exacerbation? @ -[No]Poes a threat to life or bodily function? How? (Chest pain, USA, MT, pneumonia, PE, COPD, DKA, ARF, appy, cholecystitis, CVA, Diverticulitis, Homici barak, Suicidal, threat to staff... and all critical care pts) @ -[No] - Lab Data Result diagrams: 08/25/23 18:40 08/25/23 18:40 Lab Results 08/25/23 08/25/23 08/25/23 Range/Units 18:40 18:40 18:40 WBC 5.5 (3.8-10.6) k/uL RBC 4.06 (3.80-5.40) m/uL Hgb 12.5 (11.4-16.0) gm/dL Hct 37.5 (34.0-46.0) % MCV 92.4 (80.0-100.0) fL MCH 30.7 (25.0-35.0) pg MCHC 33.2 (31.0-37.0) g/dL RDW 13.2 (11.5-15.5) % Plt Count 234 (150-450) k/uL MPV 8.9 Neutrophils % 59 % Lymphocytes % 28 % Monocytes % 7 % Eosinophils % 4 % Basophils % 0 % Neutrophils # 3.2 (1.3-7.7) k/uL Lymphocytes # 1.5 (1.0-4.8) k/uL Monocytes # 0.4 (0-1.0) k/uL Eosinophils # 0.2 (0-0.7) k/uL Basophils # 0.0 (0-0.2) k/uL Sodium 136 L (137-145) mmol/L Potassium 4.4 (3.5-5.1) mmol/L Chloride 104 (98-107) mmol/L Carbon Dioxide 23 (22-30) mmol/L Anion Gap 9 mmol/L BUN 20 H (7-17) mg/dL Creatinine 0.64 (0.52-1.04) mg/dL Est GFR (CKD-EPI)AfAm >90 (>60 ml/min/1.73 sqM) Est GFR (CKD-EPI)NonAf 81 (>60 ml/min/1.73 sqM) Glucose 105 H (74-99) mg/dL Calcium 9.0 (8.4-10.2) mg/dL Magnesium 1.9 (1.6-2.3) mg/dL Total Bilirubin 0.5 (0.2-1.3) mg/dL AST 22 (14-36) U/L ALT 7 (4-34) U/L Alkaline Phosphatase 90 (38-126) U/L Troponin I <0.012 (0.000-0.034) ng/mL Total Protein 7.5 (6.3-8.2) g/dL Albumin 3.6 (3.5-5.0) g/dL Disposition Clinical Impression: Syncope Disposition: ADMITTED IP TO THIS HOSP Is patient prescribed a controlled substance at d/c from ED?: No Referrals: Chase Enriquez MD [Primary Care Provider] - 1-2 days Time of Disposition: 20:27
--- NOTE | 2023-08-25 19:15 | XR ---
EXAMINATION TYPE: XR chest 2V DATE OF EXAM: 08/25/2023 COMPARISON: 09/22/2014 HISTORY: 88-year-old female syncope TECHNIQUE: AP and lateral views FINDINGS: Low lung volumes. Interstitial and perihilar opacity. Heart borderline enlarged. No susie consolidati on or pleural effusion. IMPRESSION: Hypoventilatory changes along with borderline cardiomegaly and interstitial/perihilar opacity. Correl ate for possible mild pulmonary vascular congestion.
[2023-08-25 19:16] LABS: ALT 7 U/L (4-34); AST 22 U/L (14-36); African American GFR (CKD) >90 (>60 ml/min/1.73 sqM); Albumin 3.6 g/dL (3.5-5.0); Alkaline Phosphatase 90 U/L (38-126); Anion Gap 9 mmol/L; Blood Urea Nitrogen 20 mg/dL (7-17); Carbon Dioxide 23 mmol/L (22-30); Chloride 104 mmol/L (98-107); Glucose 105 mg/dL (74-99); Magnesium 1.9 mg/dL (1.6-2.3); Non-African American GFR(CKD) 81 (>60 ml/min/1.73 sqM); Potassium 4.4 mmol/L (3.5-5.1); Sodium 136 mmol/L (137-145); Total Bilirubin 0.5 mg/dL (0.2-1.3); Total Protein 7.5 g/dL (6.3-8.2)
[2023-08-25 19:19] LABS: Basophils % (A) 0 %; Eosinophils # (A) 0.2 k/uL (0-0.7); Eosinophils % (A) 4 %; HCT 37.5 % (34.0-46.0); HGB 12.5 gm/dL (11.4-16.0); Lymphocytes # (A) 1.5 k/uL (1.0-4.8); Lymphocytes % (A) 28 %; MCH 30.7 pg (25.0-35.0); MCHC 33.2 g/dL (31.0-37.0); MCV 92.4 fL (80.0-100.0); Mean Platelet Volume 8.9; Monocytes # (A) 0.4 k/uL (0-1.0); Monocytes % (A) 7 %; Neutrophils # (A) 3.2 k/uL (1.3-7.7); Neutrophils % (A) 59 %; Platelet Count 234 k/uL (150-450); RBC 4.06 m/uL (3.80-5.40); RDW 13.2 % (11.5-15.5); WBC 5.5 k/uL (3.8-10.6)
--- NOTE | 2023-08-25 19:26 | CT ---
EXAMINATION TYPE: CT brain wo con DATE OF EXAM: 08/25/2023 COMPARISON: None HISTORY: 88-year-old female confusion, syncope, AMS TECHNIQUE: Examination was done in axial plane without intravenous contrast. Coronal and sagittal r econstructions performed. CT DLP: 1143.4 mGycm Automated exposure control for dose reduction was used. FINDINGS: There is no evidence of acute intracranial hemorrhage, acute ischemic changes, mass, mass-effect, or extra-axial fluid collection. There is no effacement of cerebral sulci or basal subarachnoid cister ns. There is no hydrocephalus. There is no midline shift. Fenton-white matter distinction is preserv ed. Prior sinonasal surgery. There is chronic osseous thickening of the paranasal sinus weinberg compatible with long-standing sinusitis. Some probably layering fluid is present in both maxillary sinuses. Orbi ts and globes are intact. Mastoid air cells are well pneumatized. Cerumen within the bilateral paperhanger and painter al auditory canals. 9 mm hypodense area right basal ganglia. There are old lacunar infarct left caudate head. Mild genera lized cerebral cortical volume loss. IMPRESSION: 1. 9 mm hypodense area right basal ganglia could represent a subacute versus chronic lacunar infarct. MRI is indicated. 2. 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 3. Otherwise, no acute intracranial abnormality seen. 4. Long-standing chronic sinusitis with prior FESS. Correlate for superimposed acute bilateral maxill kenirck sinusitis.
[2023-08-25 20:04] LABS: INR 0.9 (<1.2); Prothrombin Time 9.8 sec (9.0-12.0)
[2023-08-25] MEDS ORDERED: NALOXONE 0.4 MG/ML 1 ML VIAL IV PRN (20:28)
[2023-08-25] MEDS: ASPIRIN 325 MG TAB PO SCH (21:01)
[2023-08-25] MEDS: SODIUM CHLORIDE 0.9% 1,000 ML IV SCH (21:02)
--- NOTE | 2023-08-26 01:59 | P.HPIM ---
History of Present Illness H&P Date: 08/25/23 Chief Complaint: Syncope 88-year-old female bedbound due to chronic low back pain with lower extremity weakness She was sent in for evaluation due to syncopal episode at home. Patient doesn't recall that she reports being in her bed waiting for her meal to come in as she started eating she threw up then she was told by staff that she had a syncopal episode for which they decided to bring her to the hospital for evaluation she denies any palpitations dizziness lightheadedness denies any headache changes in vision or hearing denies any chest pain trouble breathing denies any fevers chills denies any coughing denies any abdominal pain denies any changes in bowel or urinary habits. She reports urinary incontinence. Patient is bed bound due to lower extremity weakness and chronic pain she has chronic herniated disks Workup in the ED CT scan of the brain showed 9 mm hypodense area right basal ganglia that could be suggestive of subacute versus chronic lacunar infarct for which she is admitted for neurologic monitoring and neurology evaluation Review of systems review of systems Pertinent positives as noted in HPI. All other systems were reviewed and are ne gative on exam Constitutional: No acute distress, conversant, pleasant Eyes: Anicteric sclerae, moist conjunctiva, Pupils equal round reactive to light ENMT: NC/AT Oropharynx clear, no erythema, or exudates Neck: Supple, no masses, or JVD No carotid bruits No thyromegaly Lungs: Clear to auscultation Clear to percussion Normal respiratory effort, no accessory muscle use Cardiovascular: Heart regular in rate and rhythm, Systolic murmurs, no gallops, or rubs No peripheral edema Abdominal: Soft Nontender, no guarding, rebound or rigidity Abdomen moving with respiration Normoactive bowel sounds No hepatomegaly, No splenomegaly No palpable mass No abdominal wall hernia noted Extremities: No digital cyanosis No clubbing Pedal pulses intact and symmetrical Radial pulses intact and symmetrical No calf tenderness Psychiatric: Alert and oriented to person, place and time Neuro Muscles Strength 4/5 in bilateral upper extremities and -3/5 in bilateral lower extremities Sensation to light touch grossly present throughout Cranial nerves II-XII grossly intact Lymphatics: no palpable cervical or supraclavicular lymph nodes Past Medical History Past Medical History: GERD/Reflux, Hypertension, Osteoarthritis (OA) Additional Past Medical History / Comment(s): gallbladder stones and kidney stones,Chronic sinus problems, limited mobility (wheelchair) unable to walk, basically is bedbound at this time. constant leg pain bulging/herniated discs History of Any Multi-Drug Resistant Organisms: None Reported Past Surgical History: Bladder Surgery, Hernia Repair, Hysterectomy, Orthopedic Surgery Additional Past Surgical History / Comment(s): R leg fracture with surgery/hardware-since removed, R hip fx with ORIF, R knee arthroscopies, abdominal hernia repair, ESS/septoplasty, bladder suspension. Past Anesthesia/Blood Transfusion Reactions: No Reported Reaction Additional Past Anesthesia/Blood Transfusion Reaction / Comment(s): no problems with prior blood transfusion Past Psychological History: No Psychological Hx Reported Additional Psychological History / Comment(s): Pt resides at [facility]. She has [place] three times a week. She gets around by wheelchair. Smoking Status: Never smoker Past Alcohol Use History: None Reported Past Drug Use History: None Reported - Past Family History Father Family Medical History: COPD Mother Family Medical History: No Reported History Additional Family Medical History / Comment(s): Mother was healthy Medications and Allergies Home Medications Medication Instructions Recorded Confirmed Type amLODIPine [Norvasc] 5 mg PO DAILY 04/16/19 08/25/23 History Allergies Allergy/AdvReac Type Severity Reaction Status Date / Time Penicillins Allergy Rash/Hives Verified 08/25/23 19:48 Physical Exam Vitals: Vital Signs Temp Pulse Pulse Resp BP BP Pulse Ox 08/25/23 22:00 98.3 F 96 16 137/83 95 08/25/23 21:03 78 18 149/79 95 08/25/23 19:26 68 18 139/58 93 L 08/25/23 18:28 98.3 F 71 18 97 Intake and Output 08/25/23 08/25/23 08/26/23 14:59 22:59 06:59 Other: Voiding Method Diaper Incontinent # Voids 3 Weight 77.111 kg Results CBC & Chem 7: 08/25/23 18:40 08/25/23 18:40 Labs: Abnormal Lab Results - Last 24 Hours (Table) 08/25/23 08/25/23 Range/Units 18:40 19:42 APTT 18.0 L (22.0-30.0) sec Sodium 136 L (137-145) mmol/L BUN 20 H (7-17) mg/dL Glucose 105 H (74-99) mg/dL Assessment and Plan Assessment: 88-year-old female with hypertension and bedbound due to to chronic lower extremity weakness coming in for syncopal episodes I discussed the case with the ED doctor I accepted the admission for concerns regarding subacute lacunar infarct for neurology evaluation with anticipated length of stay less than 2 midnights Syncope Fall precautions CT of the brain showed possible subacute versus chronic lacunar infarct 9 mm hypodense area right basal ganglia Neurochecks Neurology evaluation Continue with amlodipine home medication Check carotid ultrasound Check echocardiogram Monitor vital signs Cardiac monitoring EKG showed first-degree AV block Hypertension Controlled Continue with amlodipine by mouth Patient is bedbound due to chronic lower extremity weakness PT evaluation Full code Mechanical Blood work reviewed showed white count of 5.5 hemoglobin 12.5 both unremarkable Sodium 136 potassium 4.4 creatinine 0.6 unremarkable Troponin negative
[2023-08-26] MEDS: ASPIRIN 325 MG TAB PO SCH (08:50)
[2023-08-26] MEDS: amLODIPine 5 MG TAB PO SCH (08:50)
[2023-08-26 09:00] LABS: Basophils # (A) 0.05 X 10*3/uL (0.00-0.10); Basophils % (A) 0.7 %; Eosinophils # (A) 0.25 X 10*3/uL (0.04-0.35); Eosinophils % (A) 3.7 %; HCT 36.7 % (37.2-46.3); Lymphocytes # (A) 1.62 X 10*3/uL (0.90-5.00); Lymphocytes % (A) 24.1 %; MCH 30.3 pg (27.0-32.0); MCHC 32.7 d/dL (32.0-37.0); MCV 92.7 FL (80.0-97.0); Mean Platelet Volume 10.1 FL (9.5-12.2); Monocytes # (A) 0.58 X 10*3/uL (0.20-1.00); Monocytes % (A) 8.6 %; NRBC Per 100 WBC 0 X 10*3/uL (0.00-0.01); Neutrophils # (A) 4.18 X 10*3/uL (1.80-7.70); Neutrophils % (A) 62.2 %; Platelet Count 234 X 10*3/uL (140-440); RBC 3.96 X 10*6/uL (4.10-5.20); WBC 6.73 X 10*3/uL (4.50-10.00)
[2023-08-26 09:29] LABS: ALT <5 U/L (8-44); AST 13 U/L (13-35); Albumin 3.5 d/dL (3.8-4.9); Albumin/Globulin Ratio 1.13 Ratio (1.60-3.17); Alkaline Phosphatase 99 U/L (41-126); BUN/Creat Ratio 26.67 Ratio (12.00-20.00); Calcium 9.3 mg/dL (8.7-10.3); Carbon Dioxide 25.7 mmol/L (21.6-31.8); Chloride 104 mmol/L (96-109); Globulin 3.1 d/dL (1.6-3.3); Glucose 91 mg/dL (70-110); Potassium 4.3 mmol/L (3.5-5.5); Sodium 139 mmol/L (135-145); Total Bilirubin <0.2 mg/dL (0.3-1.2); Total Protein 6.6 d/dL (6.2-8.2)
--- NOTE | 2023-08-26 11:49 | P.CNNES ---
History of Present Illness Consult date: 08/26/23 Requesting physician: Brandon Arita Reason for Consult: syncope, evaluate CT History of Present Illness: This is an 88-year-old woman who presents to the emergency department because of syncopal episodes. Some of the history is obtained from medical record since patient did not elaborate on her history. According to the patient the she had episodes of unresponsive but could not elaborate and she stated that that this h appened at home. She stated that she resides in assisted living facility. She denies any history of stroke or TIA. She denies of urinary incontinence or bowel incontinence or any tongue bite. She denies of any focal weakness. Patient was sleeping and the she was awake and able to verbal stimuli but she was leaning towards sleeping more so unable to obtain a very thorough history. She denies of any history of atrial fibrillation or flutter. The ED note it seems the patient had a couple syncopal episode and the she notified the ED team she does not recall the episodes and she was eating at that time and she was fine before and afterwards but had some nausea. She presented to the emergency department via EMS and upon presentation she was symptom-free. Seems that she has chronic leg weakness and per the ED note she does not walk but does not have any focal weakness. Some other workup during this hospital visit consisted of: CBC with diff is unremarkable. Chemistry panel is serum glucose is 105, sodium was 136, calcium is 9.0, magnesium 1.9. CT head is reported as 9 mm hypodense area right basal ganglia could represent subacute versus chronic lacunar infarct. MRI is indicated. Additional old lacunar infarct in the left caudate head. Otherwise no acute infarct abnormalities seen. Long-standing chronic sinusitis with prior FESS. Correlate for superimposed acute bilateral maxillary sinusitis. I felt the patient had bilateral old lacunar infarct in the caudate left more than the right. I also felt the the right basal ganglia/right external capsule region seems subacute. Review of Systems Limited but the pertinent positive and negative as per HPI Past Medical History Past Medical History: GERD/Reflux, Hypertension, Osteoarthritis (OA) Additional Past Medical History / Comment(s): gallbladder stones and kidney stones,Chronic sinus problems, limited mobility (wheelchair) unable to walk, basically is bedbound at this time. constant leg pain bulging/herniated discs History of Any Multi-Drug Resistant Organisms: None Reported Past Surgical History: Bladder Surgery, Hernia Repair, Hysterectomy, Orthopedic Surgery Additional Past Surgical History / Comment(s): R leg fracture with surgery/hoyt rdware-since removed, R hip fx with ORIF, R knee arthroscopies, abdominal hernia repair, ESS/septoplasty, bladder suspension. Past Anesthesia/Blood Transfusion Reactions: No Reported Reaction Additional Past Anesthesia/Blood Transfusion Reaction / Comment(s): no problems with prior blood transfusion Past Psychological History: No Psychological Hx Reported Additional Psychological History / Comment(s): Pt resides at [facility]. She has [employer] three times a week. She gets around by wheelchair. Smoking Status: Never smoker Past Alcohol Use History: None Reported Past Drug Use History: None Reported - Past Family History Father Family Medical History: COPD Mother Family Medical History: No Reported History Additional Family Medical History / Comment(s): Mother was healthy Medications and Allergies Home Medications Medication Instructions Recorded Confirmed Type amLODIPine [Norvasc] 5 mg PO DAILY 04/16/19 08/25/23 History Allergies Allergy/AdvReac Type Severity Reaction Status Date / Time Penicillins Allergy Rash/Hives Verified 08/25/23 19:48 Physical Examination - Vital Signs Vital Signs: Vital Signs Temp Pulse Pulse Resp BP BP BP 08/26/23 07:00 97.6 F 64 16 146/70 08/26/23 02:20 97.9 F 68 16 132/67 08/25/23 22:00 98.3 F 96 16 137/83 08/25/23 21:03 78 18 149/79 08/25/23 19:26 68 18 139/58 08/25/23 18:28 98.3 F 71 18 Pulse Ox 08/26/23 07:00 98 08/26/23 02:20 96 08/25/23 22:00 95 08/25/23 21:03 95 08/25/23 19:26 93 L 08/25/23 18:28 97 Intake and Output 08/25/23 08/26/23 08/26/23 22:59 06:59 14:59 Intake Total 118 Balance 118 Intake: Oral 118 Other: Voiding Method Diaper Diaper Incontinent Incontinent # Voids 3 2 1 Weight 77.111 kg GENERAL: The patient is lying in bed and is not in acute distress. NEUROLOGICAL: Limited since she was sleeping but is awakeable to voice but returned back to sleep. Patient is oriented to self, time and she stated she was in the hospital. She is following few simple commands. No aphasia from limited language. The pupils are round but was hard to assess the size because she continued to cl ose her eyes. She tracked briefly to the right and left up and down and no appreciable nystagmus. No facial weakness. No dysarthria Motor is the strength was limited assessment in individual muscle strength because of her cooperation but she lifted up bilateral upper extremity above gravity briefly and the was able to bend her bilateral knees. Sensory is normal to touch throughout. Answers are mute bilaterally. Results - Laboratory Findings CBC and BMP: 08/26/23 05:51 08/26/23 05:51 Abnormal Lab Findings: Abnormal Labs 08/25/23 08/25/23 08/26/23 18:40 19:42 05:51 RBC 3.96 L Hct 36.7 L APTT 18.0 L Sodium 136 L BUN 20 H BUN/Creatinine Ratio Glucose 105 H Total Bilirubin ALT Albumin Albumin/Globulin Ratio 08/26/23 05:51 RBC Hct APTT Sodium BUN BUN/Creatinine Ratio 26.67 H Glucose Total Bilirubin <0.2 L ALT <5 L Albumin 3.5 L Albumin/Globulin Ratio 1.13 L Assessment and Plan Assessment: This is an 88-year-old woman who presents to the emergency department because of the 2 syncopal episode and it seems that she had syncopal episode while while eating. She denies any history of stroke or TIA or any seizures. 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 Seems chronic microvascular disease due to patient risk factors (HTN, age, sex). History of hypertension History of low back pain with weakness of lower extremities is reported that she is unable to walk/bed bound. Plan: I ordered MRI of the brain. Ordered routine EEG to rule out any underlying seizure or discharges Carotid duplex, 2-D echo, lipid panel, hemoglobin A1c, TSH is ordered pending Patient was started on aspirin 325 daily by the ED team (it does not seem patient was on antiplatletes prior to this). I started the patient on Lipitor 40 mg daily at bedtime for secondary stroke waxes Neurochecks Cardiac monitoring PT OT [employer] are consulted Will defer the rest of the medical management to primary team For DVT prophylaxis I started the patient on subcu heparin 5000 units every 12 hours The plan discussed with the primary attending Thank you for the consultation Time with Patient: Greater than 30
--- NOTE | 2023-08-26 12:52 | US ---
EXAMINATION TYPE: US carotid duplex BILAT DATE OF EXAM: 08/26/2023 COMPARISON: NONE CLINICAL INDICATION: Female, 88 years old with history of subacute lacunar infarct; TECHNIQUE: Carotid duplex ultrasound examination. Indirect Doppler criteria was utilized. FINDINGS: EXAM MEASUREMENTS: RIGHT: Peak Systolic Velocity (PSV) cm/sec ----- Right CCA: 114 ----- Right ICA: 173 ----- Right ECA: 141 ICA/CCA ratio: 1.52 RIGHT: End Diastole cm/sec ----- Right CCA: 26.6 ----- Right ICA: 31.4 ----- Right ECA: 1.1 LEFT: Peak Systolic Velocity (PSV) cm/sec ----- Left CCA: 97.4 ----- Left ICA: 157 ----- Left ECA: 111 ICA/CCA ratio: 1.61 LEFT: End Diastole cm/sec ----- Left CCA: 21.2 ----- Left ICA: 24.6 ----- Left ECA: 0.0 VERTEBRALS (direction of flow): Right Vertebral: Antegrade Left Vertebral: Antegrade Rhythm: Normal EARTH MOVER NOTES:Mild to moderate plaque bilateral bifurcations. elevated velocities bilateral ICA's , greater on the right IMPRESSION: Bilateral moderate, 50-69% stenosis of the proximal internal carotid artery secondary to moderate to marked eccentric plaque formation Criteria for Assigning % of Stenosis / Diameter reduction (Estimation based on the indirect measurements of the internal carotid artery velocities (ICA PSV). 1. Normal (no stenosis)=ICA PSV < 125 cm/s: ratio < 2.0: ICA EDV<40 cm/s. 2. Less than 50% stenosis=ICA PSV < 125 cm/s: ratio < 2.0: ICA EDV<40 cm/s. 3. 50 to 69% stenosis=ICA PSV of 125 to 230 cm/s: ration 2.0 ? 4.0: ICA EDV 40-100 cm/s. 4. Greater than 70% stenosis to near occlusion= ICA PSV > 230 cm/s: ratio > 4.0: ICA EDV > 100 cm/s. 5. Near occlusion= ICA PSV velocities may be low or undetectable: variable ratio and ICA EDV. 6. Total occlusion=unable to detect flow.
--- NOTE | 2023-08-26 14:22 | P.PN ---
Subjective Progress Note Date: 08/26/23 88-year-old female with PMH of functional quadriplegia due to chronic lower back pain and lower extremity weakness, hypertension presents the ED for syncopal episode. Patient reports feeling nauseous while waiting for her meal. She had one episode of NBNB vomiting and described feeling lightheaded. She apparently had a syncopal episode while in bed. This prompted her to come to the ED. In the ED, her vital signs were stable. CBC was unremarkable. APTT was 18. CMP showed sodium of 136, BUN 20, glucose 105. Troponin was less than 0.0123. EKG showed sinus rhythm with first-degree AV block and ST depression. CT head showed 9 mm hypodense area in the right basal ganglia along with old lacunar infarcts. Chest x-ray showed hypoventilatory changes with borderline cardiomegaly and interstitial opacity. Patient was admitted for further management, workup and neurology consultation. 08/26 Patient was seen and examined. She currently reports fatigue but denies any other symptoms. The case was discussed with Dr. Alvarado who recommends CVA workup. EEG, MRI brain, echocardiogram, A1c, lipid panel, TSH pending. 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 CBC and CMP done today is relatively benign. General: non toxic, no distress, appears at stated age Derm: warm, dry Head: atraumatic, normocephalic, symmetric Eyes: EOMI, no lid lag, anicteric sclera Cardiovascular: S1S2 reg, no murmur Lungs: CTA bilateral, no rhonchi, no rales , no accessory muscle use Ext: no gross muscle atrophy, no edema, no contractures Neuro: CN II-XI grossly intact, no focal neuro deficits Psych: Alert, oriented, appropriate affect Syncope Subacute CVA Hypertension Obesity Based on my assessment of this patient, this patient meets a high complexity level of care. Patient has an acute diagnosis of syncope that poses a threat to life or bodily function. CT head shows finding of subacute CVA. Syncope: Unclear. Telemetry monitoring. Patient is bedbound. Fall precautions. PT and OT consulted. Echocardiogram ordered. Subacute CVA: As seen on CT head. Start aspirin 81 mg by mouth daily and Lipitor 40 mg by mouth at bedtime. MRI brain. Echocardiogram. EEG. Hemoglobin A1c and lipid panel ordered. Speech therapy consult. Hypertension: Continue amlodipine 5 mg by mouth daily. Obesity: Structured weight loss program Heparin SQ for DVT prophylaxis. Full code. I have reviewed the following philatelic consultant notes: Neurology note. I have reviewed the results of the following tests: CBC, CMP, troponin, carotid Doppler. I have ordered the following tests: MRI brain. Echocardiogram. Hemoglobin A1c. Lipid panel. EEG. I have discussed the care of this patient with the following independent historian: I have independently interpreted the following test below: I have discussed the management of this patient with the following physician: Discussed with Dr. Alvarado as above. Objective - Vital Signs Vital signs: Vital Signs Temp 97.6 F 08/26/23 07:00 Pulse 64 08/26/23 07:00 Resp 16 08/26/23 07:00 BP 146/70 08/26/23 07:00 Pulse Ox 98 08/26/23 07:00 FiO2 Intake & Output 08/25/23 08/26/23 08/26/23 18:59 06:59 18:59 Intake Total 238 Balance 238 Weight 77.111 kg 77.111 kg Intake: Oral 238 Other: Voiding Method Diaper Diaper Incontinent Incontinent # Voids 2 1 - Labs CBC & Chem 7: 08/26/23 05:51 08/26/23 05:51 Labs: Abnormal Lab Results - Last 24 Hours (Table) 08/25/23 08/25/23 08/26/23 Range/Units 18:40 19:42 05:51 RBC 3.96 L (4.10-5.20) X 10*6/uL Hct 36.7 L (37.2-46.3) % APTT 18.0 L (22.0-30.0) sec Sodium 136 L (137-145) mmol/L BUN 20 H (7-17) mg/dL BUN/Creatinine Ratio (12.00-20.00) Ratio Glucose 105 H (74-99) mg/dL Total Bilirubin (0.3-1.2) mg/dL ALT (8-44) U/L Albumin (3.8-4.9) d/dL Albumin/Globulin Ratio (1.60-3.17) Ratio 08/26/23 Range/Units 05:51 RBC (4.10-5.20) X 10*6/uL Hct (37.2-46.3) % APTT (22.0-30.0) sec Sodium (137-145) mmol/L BUN (7-17) mg/dL BUN/Creatinine Ratio 26.67 H (12.00-20.00) Ratio Glucose (74-99) mg/dL Total Bilirubin <0.2 L (0.3-1.2) mg/dL ALT <5 L (8-44) U/L Albumin 3.5 L (3.8-4.9) d/dL Albumin/Globulin Ratio 1.13 L (1.60-3.17) Ratio
[2023-08-26] MEDS: SODIUM CHLORIDE 0.9% 1,000 ML IV SCH (18:33)
--- NOTE | 2023-08-26 18:54 | MR ---
EXAMINATION TYPE: MR brain wo/w con DATE OF EXAM: 08/26/2023 2:22 PM CLINICAL INDICATION:Female, 88 years old with history of seizure protocol; [facility], Seizure protocol COMPARISON: 08/25/2023 TECHNIQUE: Multi planar, multi sequence imaging was performed through the brain including: T1, T2, In version recovery, susceptibility weighted imaging and gradient echo imaging and Diffusion weighted im aging. The patient was then given intravenous contrast and multi planar, T1 fat-saturation images wer e obtained. IV Contrast: 7.5 cc Gadavist FINDINGS: Hypodense area within the right basal ganglia is felt to actually represent a choroidal fissure cyst versus prominent perivascular space. Within comparing with prior CT. Cerebral atrophy with proportion al dilation of the ventricular system There is blooming artifact within the right parietal region compatible with developmental venous anom joann. series 701 image 389. Diffusion-weighted imaging shows no evidence of restricted diffusion to suggest acute/subacute infarc t. Intracranial arterial flow voids are maintained. Midline structures show no abnormality. Scattered foci of high T2 signal intensity are seen within the periventricular white matter. The susceptibilit y weighted images do not reveal any evidence for micro-hemorrhage. After administration of gadolinium , no abnormal enhancement is seen. The bone marrow signal is within normal limits. Paranasal sinuses and mastoid air cells: No significant paranasal sinus disease. Visualized orbits: Orbital contents are intact. IMPRESSION: 1. Right parietal developmental venous anomaly. This could relate to patient's focus of seizure. 2. Area of concern prior CT in the right basal ganglia is felt to represent a choroidal fissure cyst versus prominent perivascular space. No evidence of intracranial mass, acute/subacute infarct, or abn ormal enhancement. 3. Nonspecific white matter changes, likely related to small vessel ischemic disease
[2023-08-26] MEDS: HEPARIN SODIUM,PORCINE 5,000 UNIT/ML 1 ML VIAL SQ SCH (20:36)
[2023-08-26] MEDS ORDERED: ATORVASTATIN 40 MG TAB PO SCH (21:00)
[2023-08-27] MEDS: ASPIRIN 81 MG PO SCH (09:02)
[2023-08-27] MEDS: HEPARIN SODIUM,PORCINE 5,000 UNIT/ML 1 ML VIAL SQ SCH ×2 (09:02→20:33)
[2023-08-27] MEDS: amLODIPine 5 MG TAB PO SCH (09:02)
[2023-08-27 09:54] LABS: Chol/HDL Ratio 3.49 Ratio
--- NOTE | 2023-08-27 10:16 | P.PN ---
Subjective Progress Note Date: 08/27/23 88-year-old female with PMH of functional quadriplegia due to chronic lower back pain and lower extremity weakness, hypertension presents the ED for syncopal episode. Patient reports feeling nauseous while waiting for her meal. She had one episode of NBNB vomiting and described feeling lightheaded. She apparently had a syncopal episode while in bed. This prompted her to come to the ED. In the ED, her vital signs were stable. CBC was unremarkable. APTT was 18. CMP showed sodium of 136, BUN 20, glucose 105. Troponin was less than 0.0123. EKG showed sinus rhythm with first-degree AV block and ST depression. CT head showed 9 mm hypodense area in the right basal ganglia along with old lacunar infarcts. Chest x-ray showed hypoventilatory changes with borderline cardiomegaly and interstitial opacity. Patient was admitted for further management, workup and neurology consultation. 08/26 Patient was seen and examined. She currently reports fatigue but denies any other symptoms. The case was discussed with Dr. Alvarado who recommends CVA workup. EEG, MRI brain, echocardiogram, A1c, lipid panel, TSH pending. 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 CBC and CMP done today is relatively benign. 08/27 Patient was seen and examined. She is much more alert and active today. 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 Discussed with Dr. Alvarado, no antipeiletics for now, plans for EEG likely to be done tomorrow. Lipid panel shows T. Chol 160, LDL 89. Echocardiogram, A1c and TSH pending. General: non toxic, no distress, appears at stated age Derm: warm, dry Head: atraumatic, normocephalic, symmetric Eyes: EOMI, no lid lag, anicteric sclera Cardiovascular: S1S2 reg, no murmur Lungs: CTA bilateral, no rhonchi, no rales , no accessory muscle use Ext: no gross muscle atrophy, no edema, no contractures Neuro: CN II-XI grossly intact, no focal neuro deficits Psych: Alert, oriented, appropriate affect Syncope Hypertension Obesity Based on my assessment of this patient, this patient meets a high complexity level of care. Patient has an acute diagnosis of syncope that poses a threat to life or bodily function. CT head shows finding of subacute CVA. Syncope: Unclear. Telemetry monitoring. Patient is bedbound. Fall precautions. PT and OT consulted. Echocardiogram ordered. Subacute CVA: As seen on CT head. Start aspirin 81 mg by mouth daily and Lipitor 40 mg by mouth at bedtime. MRI brain as above. Echocardiogram. EEG. Hemoglobin A1c and TSH pending. Speech therapy consult. Hypertension: Continue amlodipine 5 mg by mouth daily. Obesity: Structured weight loss program Heparin SQ for DVT prophylaxis. Full code. I have reviewed the following networks software consultant notes: I have reviewed the results of the following tests: MRI brain, Lipid panel. I have ordered the following tests: Echocardiogram. Hemoglobin A1c. EEG. I have discussed the care of this patient with the following independent historian: I have independently interpreted the following test below: I have discussed the management of this patient with the following physician: Discussed with Dr. Alvarado as above. Objective - Vital Signs Vital signs: Vital Signs Temp 97.9 F 08/27/23 07:00 Pulse 63 08/27/23 07:00 Resp 14 08/27/23 07:00 BP 168/69 08/27/23 07:00 Pulse Ox 96 08/27/23 07:00 FiO2 Intake & Output 08/26/23 08/27/23 08/27/23 18:59 06:59 18:59 Intake Total 356 118 Balance 356 118 Intake: Oral 356 118 Other: Voiding Method Diaper Diaper Diaper Incontinent Incontinent Incontinent # Voids 1 1 # Bowel Movements 1 - Labs CBC & Chem 7: 08/26/23 05:51 08/26/23 05:51
--- NOTE | 2023-08-27 12:47 | P.PN ---
Subjective Progress Note Date: 08/27/23 I am following-up with patient and she feels a bit better today compared to initial presentation. She again stated she had a syncopal episode at home and does not recall exact details. Denies history of seizures. Objective - Vital Signs Vital signs: Vital Signs Temp 97.9 F 08/27/23 07:00 Pulse 63 08/27/23 07:00 Resp 14 08/27/23 07:00 BP 168/69 08/27/23 07:00 Pulse Ox 96 08/27/23 07:00 FiO2 Intake & Output 08/26/23 08/27/23 08/27/23 18:59 06:59 18:59 Intake Total 356 118 Balance 356 118 Intake: Oral 356 118 Other: Voiding Method Diaper Diaper Diaper Incontinent Incontinent Incontinent # Voids 1 1 # Bowel Movements 1 - Exam GENERAL: The patient is lying in bed and is not in acute distress. NEUROLOGICAL: Patient is oriented to self, time and she stated she was in the hospital. She is following simple commands. No aphasia from limited language. The Eyes are more open today compared to yesterday but I feel has mild to moderate ptosis left > right. Pupils are round, and hard to assess size since kept close it but appears 3-4mm and reactive to light. Visual field are full to confrontation. No facial weakness. No dysarthria Motor is the strength was limited assessment in individual muscle strength becau se of her cooperation but she lifted up bilateral upper extremity above gravity. Is bed-bound and has chronic bilateral leg weakness and upon attempting to lift she was in pain. Some other workup during this hospital visit consisted of: CBC with diff is unremarkable. Chemistry panel is serum glucose is 105, sodium was 136, calcium is 9.0, magnesium 1.9. Lipid panel is triglyceride 126, cholesterol is 160, LDLs 89, HDL 45. CT head is reported as 9 mm hypodense area right basal ganglia could represent subacute versus chronic lacunar infarct. MRI is indicated. Additional old lacunar infarct in the left caudate head. Otherwise no acute infarct abnormalities seen. Long-standing chronic sinusitis with prior FESS. Correlate for superimposed acute bilateral maxillary sinusitis. I felt the patient had bilateral old lacunar infarct in the caudate left more than the right. I also felt the the right basal ganglia/right external capsule region seems subacute. Carotid duplex: It is reported as bilateral moderate 50-69% stenosis of the proximal internal carotid artery secondary due to moderate to marketed is centered plaque formation MRI the brain is reported as right parietal developmental venous anomaly. This could relate to patient focus of seizure. Area of concern prior CT in the right basal ganglia is felt to represent choroidal fissure cyst versus prominent perivascular space. No evidence of intracranial mass, acute/subacute infarct or abnormal enhancement. Nonspecific white matter changes likely related to small vessel ischemic disease. - Labs CBC & Chem 7: 08/26/23 05:51 08/26/23 05:51 Assessment and Plan Assessment: This is an 88-year-old woman who presents to the emergency department because of the 2 syncopal episode and it seems that she had syncopal episode while while eating. She denies any history of stroke or TIA or any seizures. On the CT of the head shows that she had old lacunar stroke over bilateral carotids left more than right and has suspicious of subacute over the right basal ganglia Syncopal episodes: Unsure if had new onset seizure. Patient does not remember what transpired and denies history of seizure. Has right parietal developmental venous anomaly and possible culprit if does have seizure. No acute or subacute stroke or any brain enhancement. 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 No acute or subacute ischemic stroke Bilateral carotid stenosis of 5--59% on duplex. Old bilateral lacunar stroke over the bilateral caudate left more than the right. Seems chronic microvascular disease due to patient risk factors (HTN, age, sex). History of hypertension History of low back pain with weakness of lower extremities is reported that she is unable to walk/bed bound. Plan: MRI the brain is reported as right parietal developmental venous anomaly. This could relate to patient focus of seizure. Area of concern prior CT in the right basal ganglia is felt to represent choroidal fissure cyst versus prominent perivascular space. No evidence of intracranial mass, acute/subacute infarct or abnormal enhancement. Nonspecific white matter changes likely related to small vessel ischemic disease. I will obtain CTA head and neck for further evaluation of arteriovenous anomaly. Recommend patient to follow-up with either internal neurologist or neurosurgeon as outpatient for further evaluation/management of venous anomaly. Pending routine EEG to rule out any underlying seizure or discharges If EEG is positive for seizure or discharge, then pursue with starting antiepi leptic drugs. But if negative and since have venous anamoly this ?suspicious for seizure then consider starting but will see what CTA and EEG shows first. Patient was started on aspirin 325 daily by the ED team (it does not seem patient was on antiplatletes prior to this). Started on Lipitor 40mg qhs and helps with carotid plaques. For carotid stenosis of 50-69% on duplex, will pursue with CTA and if continues to be significant stenosis then pursue with vascuar surgery consultation. If not significant stenosis then consider going down on statin. Cardiac monitoring Neuro checks. PT OT BEEKEEPER are consulted Will defer the rest of the medical management to primary team For DVT prophylaxisOn subcu heparin 5000 units every 12 hours The plan discussed with the patient and her primary attending Dr. Grady will start service tomorrow A.M. Time with Patient: Less than 30
--- NOTE | 2023-08-27 13:06 | CA ---
Transthoracic Echo Report Name: Shana Priest Age: 88 Gender: F : 1935 Exam Date: 08/26/2023 11:01 Exam Location: [facility] Ht (in): 64 Wt (lb): 170 Ordering Physician: Tammie Singh MD Attending/Referring Phys: [id number], Francisco Spinning Frame Changer Kortney De Leon RDCS Procedure CPT: Indications: subacute lacunar infarct Cardiac Hx: Technical Quality: Fair Contrast 1: Total Dose (mL): Contrast 2: Total Dose (mL): MEASUREMENTS (Male / Female) Normal Values 2D ECHO LV Diastolic Diameter PLAX 3.4 cm 4.2 - 5.9 / 3.9 - 5.3 cm LV Systolic Diameter PLAX 2.3 cm IVS Diastolic Thickness 1.6 cm 0.6 - 1.0 / 0.6 - 0.9 cm LVPW Diastolic Thickness 1.8 cm 0.6 - 1.0 / 0.6 - 0.9 cm LV Relative Wall Thickness 1.0 RV Internal Dim ED PLAX 2.5 cm LVOT Diameter 2.2 cm LA Volume 62.1 cm??? 18 - 58 / 22 - 52 cm??? M-MODE Aortic Root Diameter MM 3.2 cm LA Systolic Diameter MM 4.3 cm LA Ao Ratio MM 1.4 AV Cusp Separation MM 1.0 cm DOPPLER AV Peak Velocity 318.8 cm/s AV Peak Gradient 40.6 mmHg AV Mean Velocity 244.0 cm/s AV Mean Gradient 26.7 mmHg AV Velocity Time Integral 82.7 cm AI Peak Velocity 423.2 cm/s AI Peak Gradient 71.6 mmHg AI Pressure Half Time 672.5 ms LVOT Peak Velocity 82.1 cm/s LVOT Peak Gradient 2.7 mmHg LVOT Velocity Time Integral 22.8 cm LVOT Stroke Volume 87.8 cm??? LVOT Stroke Volume Index 48.1 ml/m??? LVOT Cardiac Index 2834.3 cm???/min???m??? AV Area Cont Eq vti 1.1 cm??? AV Area Cont Eq pk 1.0 cm??? MV Peak Velocity 120.5 cm/s MV Peak Gradient 5.8 mmHg MV Mean Velocity 73.9 cm/s MV Mean Gradient 2.4 mmHg MV Velocity Time Integral 42.8 cm MV Area PHT 2.6 cm??? Mitral E Point Velocity 99.9 cm/s Mitral A Point Velocity 116.9 cm/s Mitral E to A Ratio 0.9 MV Deceleration Time 289.9 ms MV E' Velocity 5.6 cm/s Mitral E to MV E' Ratio 17.8 TR Peak Velocity 226.1 cm/s TR Peak Gradient 20.4 mmHg Right Ventricular Systolic Press 25.4 mmHg FINDINGS Left Ventricle Severely increased left ventricular wall thickness. Left ventricular cavity size normal. Normal left ventricular wall motion. Left ventricular ejection fraction is estimated at 55-60 %. Right Ventricle Normal right ventricular size and function. Right ventricular systolic pressure within normal limits. Right Atrium Normal right atrial size. Left Atrium Mildly increased left atrial volume. Mitral Valve Mild mitral annular calcification. Mitral valve thickened. Mild mitral stenosis. Mild mitral regurgitation. Aortic Valve Mild aortic stenosis with a peak gradient of 41 mmHg and a mean gradient of 27 mmHg. Mild aortic regurgitation. Tricuspid Valve Structurally normal tricuspid valve. Mild tricuspid regurgitation. Pulmonic Valve Structurally normal pulmonic valve. Trace pulmonic regurgitation. Pericardium No pericardial effusion. Aorta Normal size aortic root and proximal ascending aorta. CONCLUSIONS LVH with preserved systolic function ejection fraction 55% with moderate aortic stenosis Previewed by: Dr. Afshin Hernandez MD (Electronically Signed) Final Date: 27 August 2023 13:04
--- NOTE | 2023-08-27 15:17 | CT ---
EXAMINATION TYPE: CT angio head neck CT DLP: 410.1 mGycm, Automated exposure control for dose reduction was used. DATE OF EXAM: 08/27/2023 2:06 PM COMPARISON: CT head 08/25/2023. CLINICAL INDICATION:Female, 88 years old with history of altered mental status. TECHNIQUE: Axially acquired helical CT angiogram of the head and neck was obtained with contrast. Axi al images are supplemented with 3D reconstructions which [facility] NASCET criteria used. Contrast used:65ml mL of Isovue 370 with IV Contrast, Oral contrast used: None. FINDINGS: Of note, motion artifact does limit the evaluation. CTA HEAD: No evidence of acute intracranial hemorrhage, mass effect, or midline shift. The ventricles, sulci, a nd cisterns are unremarkable. The visualized portions of the internal carotid arteries, middle cerebral arteries, anterior cerebral arteries, and posterior cerebral arteries are patent. Mild multifocal stenosis of the P2/P3 segments of the posterior cerebral arteries is identified. The basilar and vertebral arteries are patent. There is a right dominant vertebrobasilar system. The origin of the picas are patent. CTA NECK: Right Carotid System: The common carotid artery and external carotid artery are patent. The carotid bifurcation demonstrate s atherosclerotic disease but no evidence of hemodynamically significant stenosis. The remaining port ions of the internal carotid artery demonstrate normal size without significant narrowing. Left Carotid System: The common carotid artery and external carotid artery are patent. The carotid bifurcation demonstrate s prescribed disease no evidence of hemodynamically significant stenosis. The remaining portions of t he internal carotid artery demonstrate normal size without significant narrowing. Vertebral arteries are patent without evidence hemodynamically significant stenosis. There is a two-vessel aortic arch. The origins of the great vessels are patent. No evidence of hemody namically significant stenosis. Upper thorax: IMPRESSION: Motion limited exam without evidence of large vessel occlusion or severe arterial stenosis.
[2023-08-27] MEDS: ATORVASTATIN 40 MG TAB PO SCH (20:33)
[2023-08-27] MEDS ORDERED: ATORVASTATIN 10 MG TAB PO SCH (21:00)
[2023-08-28] MEDS: ASPIRIN 81 MG PO SCH (09:33)
[2023-08-28] MEDS: amLODIPine 5 MG TAB PO SCH (09:33)
[2023-08-28] MEDS: HEPARIN SODIUM,PORCINE 5,000 UNIT/ML 1 ML VIAL SQ SCH ×2 (09:34→20:01)
--- NOTE | 2023-08-28 11:54 | P.DS ---
Providers Date of admission: 08/25/23 20:29 Expected date of discharge: 08/28/23 Attending physician: Tammie Singh MD Consults: 08/25/23 20:28 Consult Physician Routine Consulting Provider: Mariano Alvarado Consult Reason/Comments: syncope, plz eval ct Do you want consulting provider notified?: Yes Primary care physician: [facility] Course: 88-year-old female with PMH of functional quadriplegia due to chronic lower back pain and lower extremity weakness, hypertension presents the ED for syncopal episode. Patient reports feeling nauseous while waiting for her meal. She had one episode of NBNB vomiting and described feeling lightheaded. She apparently had a syncopal episode while in bed. This prompted her to come to the ED. In the ED, her vital signs were stable. CBC was unremarkable. APTT was 18. CMP showed sodium of 136, BUN 20, glucose 105. Troponin was less than 0.0123. EKG showed sinus rhythm with first-degree AV block and ST depression. CT head showed 9 mm hypodense area in the right basal ganglia along with old lacunar infarcts. Chest x-ray showed hypoventilatory changes with borderline cardiomegaly and interstitial opacity. Patient was admitted for further management, workup and neurology consultation. 08/26 Patient was seen and examined. She currently reports fatigue but denies any other symptoms. The case was discussed with Dr. Alvarado who recommends CVA workup. EEG, MRI brain, echocardiogram, A1c, lipid panel, TSH pending. 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 CBC and CMP done today is relatively benign. 08/27 Patient was seen and examined. She is much more alert and active today. 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 Discussed with Dr. Alvarado, no antipeiletics for now, plans for EEG likely to be done tomorrow. Lipid panel shows T. Chol 160, LDL 89. Echocardiogram, A1c and TSH pending. 08/28 Patient was seen and examined. She denies any complaints. 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 Lipid panel shows T. Chol 160, LDL 89. TSH 2.53. EEG is pending. Anticipate discharge home today if EEG is negative. Pertinent studies include EKG. CT brain. CTA head and neck. Echo. Carotid doppler, MRI brain. General: non toxic, no distress, appears at stated age Derm: warm, dry Head: atraumatic, normocephalic, symmetric Eyes: EOMI, no lid lag, anicteric sclera Cardiovascular: S1S2 reg, no murmur Lungs: CTA bilateral, no rhonchi, no rales , no accessory muscle use Ext: no gross muscle atrophy, no edema, no contractures Neuro: CN II-XI grossly intact, no focal neuro deficits Psych: Alert, oriented, appropriate affect Discharge Diagnosis: Syncope Hypertension Obesity This complex discharge took 35 minutes to complete. Patient Condition at Discharge: Stable Plan - Discharge Summary New Discharge Prescriptions: No Action amLODIPine [Norvasc] 5 mg PO DAILY Discharge Medication List amLODIPine [Norvasc] 5 mg PO DAILY 04/16/19 [History] Follow up Appointment(s)/Referral(s): Chase Enriquez MD [Primary Care Provider] - 1-2 days Activity/Diet/Wound Care/Special Instructions: Call [facility] at discharge to arrange ambulance. [phone] Physician Certification statement is on the chart.
[2023-08-28] MEDS: ATORVASTATIN 40 MG TAB PO SCH (20:01)
--- NOTE | 2023-08-28 22:08 | EEG ---
ELECTROENCEPHALOGRAM REPORT PREAMBLE: This is an 88-year-old female with a syncopal spell. This study is performed to evaluate for any epileptiform activity. CURRENT MEDICATIONS: Aspirin, Norvasc, Lipitor, and heparin. EEG FINDINGS: This is a 21-channel digital EEG recorded with video component, utilizing 10/20 international system with referential and bipolar montages. Background consists of well developed, well regulated moderate voltage activity in 8-9 hertz alpha. Background is posterior dominant and reactive to eye opening and closing. Photic driving response was not seen. Different stages of sleep were not seen. No focal or generalized epileptiform activity was seen. IMPRESSION: This is a normal awake and drowsy EEG. No focal, lateralized or epileptiform activity was seen. MMODL / IJN: [id number] /
[2023-08-29] MEDS: HEPARIN SODIUM,PORCINE 5,000 UNIT/ML 1 ML VIAL SQ SCH (08:38)
[2023-08-29] MEDS: ASPIRIN 81 MG PO SCH (08:38)
[2023-08-29] MEDS: amLODIPine 5 MG TAB PO SCH (08:39)
[2023-08-29 08:52] VITALS: BP 139/63; PULSE 60; RESP 17; TEMP 98.3
--- NOTE | 2023-08-29 11:26 | P.PN ---
Subjective Progress Note Date: 08/29/23 Patient initially seen by Dr. Mariano Alvarado. Please refer to his note for details. Patient is a 88-year-old female who presents because of syncopal episode. No previous history of seizure or syncope. MRI of the brain showed right parietal venous malformation. Patient states that she has not walked since September 2022. At first they thought that it was the back. She underwent some injection to the back, which helped. After the second injection, she was coming back from the bathroom, when her legs gave out. Since then she has not walked. Patient had multiple MRI of the lumbar spine, which did not reveal significant spinal stenosis or pathology. Patient also had MRI of the cervical and thoracic spine in 2018, which did not reveal significant stenosis. Some other workup during this hospital visit consisted of: CBC with diff is unremarkable. Chemistry panel is serum glucose is 105, sodium was 136, calcium is 9.0, magnesium 1.9. Lipid panel is triglyceride 126, cholesterol is 160, LDLs 89, HDL 45. CT head is reported as 9 mm hypodense area right basal ganglia could represent subacute versus chronic lacunar infarct. MRI is indicated. Additional old lacunar infarct in the left caudate head. Otherwise no acute infarct abnormalities seen. Long-standing chronic sinusitis with prior FESS. Correlate for superimposed acute bilateral maxillary sinusitis. I felt the patient had bilateral old lacunar infarct in the caudate left more than the right. I also felt the the right basal ganglia/right external capsule region seems subacute. Carotid duplex: It is reported as bilateral moderate 50-69% stenosis of the proximal internal carotid artery secondary due to moderate to marketed is centered plaque formation MRI the brain is reported as right parietal developmental venous anomaly. This could relate to patient focus of seizure. Area of concern prior CT in the right basal ganglia is felt to represent choroidal fissure cyst versus prominent perivascular space. No evidence of intracranial mass, acute/subacute infarct or abnormal enhancement. Nonspecific white matter changes likely related to small vessel ischemic disease. Objective - Vital Signs Vital signs: Vital Signs Temp 98.3 F 08/29/23 07:00 Pulse 60 08/29/23 07:00 Resp 17 08/29/23 07:00 BP 139/63 08/29/23 07:00 Pulse Ox 96 08/29/23 07:00 FiO2 Intake & Output 08/28/23 08/29/23 08/29/23 18:59 06:59 18:59 Intake Total 221 118 Balance 221 118 Intake: Oral 221 118 Other: Voiding Method Diaper Diaper Diaper Incontinent Incontinent Incontinent # Voids 1 5 # Bowel Movements 1 1 - Exam Patient is an elderly female, very pleasant, in no acute distress. Patient is alert awake oriented to time place and person. Patient knows it is 08/29/2023 and that she is in [facility] in [place]. Speech and language functions are normal. Patient can name and repeat very well. No aphasia or dysarthria. Attention, concentration and fund of knowledge is adequate. On cranial nerve examination, pupils are equal, round and reacting to light, visual galeano are full on confrontation, with no neglect on double simultaneous stimulation. Extraocular muscles are intact with no nystagmus. Face is symmetric, tongue protrudes to the midline. Palatal elevation and sensation normal, hearing is mild to moderately decreased and shoulder shrug normal, facial sensation normal. On muscle strength testing, there is mild left arm drift which is chronic from shoulder issue. 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 Shoulder is slightly weak on the left with pain. In the lower limbs, hip flexion is 4- bilaterally, ankle dorsiflexion also 4- bilaterally. Deep tendon reflexes are very hypoactive, almost absent and plantars are flat. Sensory to touch is equal with no neglect on double simultaneous stimulation. Cerebellar function showed no ataxia for [id number] testing. Gait deferred.. On general examination, there is no carotid bruit or murmur, S1-S2 audible. Chest is clear on consultation. Abdomen is soft nontender. No organomegaly, bowel sounds present. Peripheral pulses are present. No edema. - Labs CBC & Chem 7: 08/26/23 05:51 08/26/23 05:51 Assessment and Plan Assessment: This is an 88-year-old woman who presents to the emergency department because of the 2 syncopal episode and it seems that she had syncopal episode while while eating. She denies any history of stroke or TIA or any seizures. On the CT of the head shows that she had old lacunar stroke over bilateral basal ganglia Syncopal episodes: Unsure if had new onset seizure. Patient does not remember what transpired and denies history of seizure. Has right parietal developmental venous anomaly and possible culprit if does have seizure. No acute or subacute stroke or any brain enhancement. 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 No acute or subacute ischemic stroke Bilateral carotid stenosis of 50-59% on duplex. Old bilateral lacunar stroke over the bilateral caudate left more than the right. Seems chronic microvascular disease due to patient risk factors (HTN, age, sex). History of hypertension History of low back pain with weakness of lower extremities is reported that she is unable to walk/bed bound. Plan: MRI the brain is reported as right parietal developmental venous anomaly. This could relate to patient focus of seizure. Area of concern prior CT in the right basal ganglia is felt to represent choroidal fissure cyst versus prominent phyllis vascular space. No evidence of intracranial mass, acute/subacute infarct or abnormal enhancement. Nonspecific white matter changes likely related to small vessel ischemic disease. I reviewed MRI of the brain, and do not appear to have any obvious DVA. No obvious focus of seizure on my review. Carotid Doppler revealed 50-69% stenosis of bilateral ICA, right more than left. CTA head and neck revealed motion limited exam without evidence of large vessel occlusion, or severe arterial stenosis. Recommend patient to follow-up with neurologist for evaluation of bilateral leg weakness. Patient may need EMG nerve conduction of bilateral lower limbs. EEG was performed, which was normal with no epileptiform activity seen. No indication for antiepileptic medication. 2-D echo revealed left ventricular hypertrophy with preserved systolic function with EF 55%. Moderate aortic stenosis, mild AR. Patient was given loading dose aspirin 325 daily by the ED team, and now started on aspirin 81 mg daily, which should be continued (it does not seem patient was on antiplatletes prior to this). Started on Lipitor 40mg qhs and helps with car otid plaques. Cardiac monitoring. May consider event monitor rule out arrhythmia. May consider cardiology evaluation, especially for moderate aortic stenosis, which could be the cause of syncope. Neuro checks. PT OT APPLICATIONS PROCESSOR are consulted Will defer the rest of the medical management to primary team Neurologically clear for discharge.
--- NOTE | 2023-08-29 14:20 | P.DS ---
Providers Date of admission: 08/25/23 20:29 Expected date of discharge: 08/29/23 Attending physician: Tammie Singh MD Consults: 08/25/23 20:28 Consult Physician Routine Consulting Provider: Mariano Alvarado Consult Reason/Comments: syncope, plz eval ct Do you want consulting provider notified?: Yes Primary care physician: [facility] [place] Course: 88-year-old female with PMH of functional quadriplegia due to chronic lower back pain and lower extremity weakness, hypertension presents the ED for syncopal episode. Patient reports feeling nauseous while waiting for her meal. She had one episode of NBNB vomiting and described feeling lightheaded. She apparently had a syncopal episode while in bed. This prompted her to come to the ED. In the ED, her vital signs were stable. CBC was unremarkable. APTT was 18. CMP showed sodium of 136, BUN 20, glucose 105. Troponin was less than 0.0123. EKG showed sinus rhythm with first-degree AV block and ST depression. CT head showed 9 mm hypodense area in the right basal ganglia along with old lacunar infarcts. Chest x-ray showed hypoventilatory changes with borderline cardiomegaly and interstitial opacity. Patient was admitted for further management, workup and neurology consultation. 08/26 Patient was seen and examined. She currently reports fatigue but denies any other symptoms. The case was discussed with Dr. Alvarado who recommends CVA workup. EEG, MRI brain, echocardiogram, A1c, lipid panel, TSH pending. 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 CBC and CMP done today is relatively benign. 08/27 Patient was seen and examined. She is much more alert and active today. 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 Discussed with Dr. Alvarado, no antipeiletics for now, plans for EEG likely to be done tomorrow. Lipid panel shows T. Chol 160, LDL 89. Echocardiogram, A1c and TSH pending. 08/28 Patient was seen and examined. She denies any complaints. CTA head was done which shows mild multifocal stenosis of the P2/P3 SAP BW CONSULTANT but no large vessel occlusion or severe arterial stenosis. Lipid panel shows T. Chol 160, LDL 89. TSH 2.53. EEG is pending. 08/29 Patient was seen and examined. No complaints. EEG is negative. Plans for discharge today. Pertinent studies include EKG. CT brain. CTA head and neck. Echo. Carotid doppler, MRI brain. General: non toxic, no distress, appears at stated age Derm: warm, dry Head: atraumatic, normocephalic, symmetric Eyes: EOMI, no lid lag, anicteric sclera Cardiovascular: S1S2 reg, no murmur Lungs: CTA bilateral, no rhonchi, no rales , no accessory muscle use Ext: no gross muscle atrophy, no edema, no contractures Neuro: CN II-XI grossly intact, no focal neuro deficits Psych: Alert, oriented, appropriate affect Discharge Diagnosis: Syncope Hypertension Obesity This complex discharge took 35 minutes to complete. Patient Condition at Discharge: Stable Plan - Discharge Summary New Discharge Prescriptions: New Aspirin 81 mg PO DAILY #30 tab Atorvastatin [Lipitor] 40 mg PO HS #30 tab Continue amLODIPine [Norvasc] 5 mg PO DAILY Discharge Medication List amLODIPine [Norvasc] 5 mg PO DAILY 04/16/19 [History] Aspirin 81 mg PO DAILY #30 tab 08/29/23 [Rx] Atorvastatin [Lipitor] 40 mg PO HS #30 tab 08/29/23 [Rx] Follow up Appointment(s)/Referral(s): Chase Enriquez MD [Primary Care Provider] - 1-2 days Salvador Montgomery DO [Doctor of Osteopathic Medicine] - 1 Week Patient Instructions/Handouts: Syncope (DC) Activity/Diet/Wound Care/Special Instructions: Call [facility] at discharge to arrange ambulance [phone]. Physician Certification form is on the chart. Discharge Disposition: HOME SELF-CARE
== END 2023-08-29 11:57 | disposition home or self-care (01) ==
LOC: EC 18:20 → 6NMEDSUR 20:29
PROVIDERS: ADMIT Internal Medicine; ATTEND Internal Medicine
DX: R55 Syncope and collapse (principal); K21.9 Gastro-esophageal reflux disease without esophagitis; I10 Essential (primary) hypertension; M54.50 Low back pain, unspecified; G89.29 Other chronic pain; R53.1 Weakness; E66.9 Obesity, unspecified; Z68.29 Body mass index [BMI] 29.0-29.9, adult; Z74.01 Bed confinement status; Z86.73 Personal history of transient ischemic attack (TIA), and cerebral infarction without residual deficits; Z79.899 Other long term (current) drug therapy; Z88.0 Allergy status to penicillin
CPT/HCPCS: 96361 ×3; 96372 ×4; 96360; 99285; 36415; 95816; 93005; 93306; 80061; 80053 ×2; 84443; 83735; 84484; 85025 ×2; 85610; 85730; 83036; 71046; 93880; 70496; 70450; 70498; 70553; G0378 ×6; J1644 ×4; A9585; Q9967

== ENCOUNTER 2025-03-17 11:50 | Observation (INO) | payer MEDICARE ==
[2025-03-17] MEDS ORDERED: VANCOMYCIN IV PER PHARMACY 1 EACH MISC MISCELLANE PRN (13:06)
[2025-03-17] MEDS: VANCOMYCIN 1,500 MG in SODIUM CHLORIDE 0.9% 500 ML 500 ML IVPB ONE (13:38)
[2025-03-17 13:39] LABS: Basophils # (A) 0.04 10*3/uL (0.00-0.10); Basophils % (A) 0.6 %; Eosinophils # (A) 0.18 10*3/uL (0.04-0.35); Eosinophils % (A) 2.9 %; HCT 35.8 % (37.2-46.3); HGB 11.9 g/dL (12.0-15.0); Lymphocytes # (A) 1.22 10*3/uL (0.90-5.00); Lymphocytes % (A) 19.6 %; MCH 30.1 pg (27.0-32.0); MCHC 33.2 g/dL (32.0-37.0); MCV 90.4 fL (80.0-97.0); Mean Platelet Volume 10.3 fL (9.5-12.2); Monocytes % (A) 9.7 %; Neutrophils # (A) 4.03 10*3/uL (1.80-7.70); Neutrophils % (A) 64.9 %; Platelet Count 255 10*3/uL (140-440); RBC 3.96 10*6/uL (4.10-5.20); RDW 12.9 % (11.5-14.5); WBC 6.21 10*3/uL (4.50-10.00)
[2025-03-17 13:56] LABS: ALT <6 U/L (4-34); AST 22 U/L (14-36); African American GFR (CKD) 82 (>60 ml/min/1.73 sqM); Albumin 3.3 g/dL (3.5-5.0); Alkaline Phosphatase 115 U/L (38-126); Anion Gap 8 mmol/L; Blood Urea Nitrogen 23 mg/dL (7-17); Carbon Dioxide 24 mmol/L (22-30); Chloride 104 mmol/L (98-107); Glucose 104 mg/dL (74-99); Non-African American GFR(CKD) 71 (>60 ml/min/1.73 sqM); Potassium 3.9 mmol/L (3.5-5.1); Sodium 136 mmol/L (137-145); Total Bilirubin 0.4 mg/dL (0.2-1.3); Total Protein 6.6 g/dL (6.3-8.2)
[2025-03-17 14:05] LABS: NT-Pro-B-Type Natriuretic Pept 249 pg/mL
--- NOTE | 2025-03-17 14:15 | XR ---
EXAMINATION TYPE: XR tibia fibula RT DATE OF EXAM: 03/17/2025 2:09 PM INDICATION: Patient age:Female; 89 years old; Reason for study: evaluate for osteomyelitis; PHH. pain COMPARISON: None TECHNIQUE: The right tibia/fibula was examined in AP and lateral projections. FINDINGS: Diffuse bone demineralization with limits evaluation. No acute fracture or dislocation. No osseous erosion is identified. Tricompartmental joint space narrowing of the knee with sclerosis and osteophyte formation. Diffuse subcutaneous edema of the visualized right lower extremity. IMPRESSION: 1. No evidence of acute fracture. 2. No osseous erosions to suggest osteomyelitis. 3. Diffuse subcutaneous edema. 4. Moderate osteoarthritic changes of the knee. [facility], , 03/17/2025 2:13 PM
--- NOTE | 2025-03-17 15:35 | US ---
EXAMINATION TYPE: US venous doppler duplex LE BI DATE OF EXAM: 03/17/2025 3:22 PM COMPARISON: NONE CLINICAL INDICATION: Female, 89 years old with history of leg edema, eval for dvt; Leg swelling, Pain TECHNIQUE: The lower extremity deep venous system is examined utilizing real time linear array sonog jami with graded compression, color doppler sonography, and spectral doppler. SIDE PERFORMED: Bilateral FINDINGS: VESSELS IMAGED: Common Femoral Vein Deep Femoral Vein Greater Saphenous Vein * Femoral Vein Popliteal Vein Small Saphenous Vein * Proximal Calf Veins (* superficial vessels) Right Leg: Negative for DVT, Color Doppler imaging shows patency of the vessels. Spectral waveforms are within normal limits. Left Leg: Negative for DVT, Color Doppler imaging shows patency of the vessels. Spectral waveforms a re within normal limits. IMPRESSION: No ultrasound evidence for deep venous thrombosis. [facility], , 03/17/2025 3:32 PM
[2025-03-17] MEDS ORDERED: ONDANSETRON 4 MG/2 ML VIAL IVP PRN (16:06)
[2025-03-17] MEDS ORDERED: ACETAMINOPHEN TAB 325 MG TAB PO PRN (16:06)
[2025-03-17] MEDS ORDERED: NALOXONE 0.4 MG/ML 1 ML VIAL IV PRN (16:06)
--- NOTE | 2025-03-17 16:08 | ED ---
General Adult HPI - General Chief complaint: Recheck/Abnormal Lab/Rx Stated complaint: aury leg pain Time Seen by Provider: 03/17/25 13:00 Source: patient, EMS, RN notes reviewed, old records reviewed Mode of arrival: EMS Limitations: no limitations - History of Present Illness Initial comments: Patient is an 89-year-old female presents emergency department from her nursing facility over concern for cellulitis of the right lower extremity. He has chronic lower extremity edema. Has chronic back pain and leg pain. Is bedbound. Has had redness over the right anterior powers for the last 2 or 3 days per patient. States it is more painful than the other leg however has chronic pain as well. Denies any fevers or chills. No obvious sick contacts. No numbness. Presents for further evaluation at this time. - Related Data Home Medications Medication Instructions Recorded Confirmed amLODIPine [Norvasc] 5 mg PO DAILY 04/16/19 03/17/25 Vit C/E/Zn/Coppr/Lutein/Zeaxan 1 cap PO BID 03/17/25 03/17/25 [Preservision Areds 2 Softgel] Previous Rx's Medication Instructions Recorded Aspirin 81 mg PO DAILY #30 tab 08/29/23 Allergies Allergy/AdvReac Type Severity Reaction Status Date / Time Penicillins Allergy Rash/Hives Verified 03/17/25 14:47 Review of Systems ROS Statement: Those systems with pertinent positive or pertinent negative responses have been documented in the HPI. Review of Systems: CONST: Denies fever EYES: Denies blurry vision ENT: Denies nasal congestion C/V: Denies Chest pain RESP: Denies shortness of breath GI: Denies abdominal pain : Denies dysuria SKIN: Endorses right anterior powers rash MSK: Denies joint pain. NEURO: Denies headache ROS Other: All systems not noted in ROS Statement are negative. Past Medical History Past Medical History: GERD/Reflux, Hypertension, Osteoarthritis (OA) Additional Past Medical History / Comment(s): gallbladder stones and kidney stones,Chronic sinus problems, limited mobility (wheelchair) unable to walk, basically is bedbound at this time. constant leg pain bulging/herniated discs History of Any Multi-Drug Resistant Organisms: None Reported Past Surgical History: Bladder Surgery, Hernia Repair, Hysterectomy, Orthopedic Surgery Additional Past Surgical History / Comment(s): R leg fracture with surgery/hardware-since removed, R hip fx with ORIF, R knee arthroscopies, abdominal hernia repair, ESS/septoplasty, bladder suspension. Past Anesthesia/Blood Transfusion Reactions: No Reported Reaction Additional Past Anesthesia/Blood Transfusion Reaction / Comment(s): no problems with prior blood transfusion Past Psychological History: No Psychological Hx Reported Smoking Status: Never smoker Past Alcohol Use History: None Reported Past Drug Use History: None Reported - Past Family History Father Family Medical History: COPD Mother Family Medical History: No Reported History Additional Family Medical History / Comment(s): Mother was healthy General Exam - General Exam Comments Initial Comments: General: Appears in no acute distress. HEAD: Normal with no signs of head trauma. EYES: EOMI ENT: Hearing grossly intact, normal oropharynx. RESPIRATORY: Clear breath sounds bilaterally. No wheezes, rales, or rhonchi. C/V: Regular rate and rhythm. S1 and S2 auscultated, bilateral lower extremity pitting edema, peripheral pulses 2+ and intact throughout ABD: Abd is soft, nontender, nondistended EXT: Normal range of motion, no obvious deformity SKIN: Erythematous patch located over the right anterior powers. Mildly blanchable. Warm. Painful. No fluctuance. Neurovascular intact. NEURO: Alert and oriented x 4. No focal deficits. Baseline is chronically bedbound. Limitations: no limitations Course Vital Signs 03/17/25 03/17/25 03/17/25 11:52 15:33 16:34 Temperature 98.3 F Pulse Rate 74 72 71 Respiratory 18 18 18 Rate Blood Pressure 135/77 94/63 120/64 O2 Sat by Pulse 99 95 95 Oximetry 03/17/25 17:54 Temperature 98.1 F Pulse Rate 76 Respiratory 19 Rate Blood Pressure 138/67 O2 Sat by Pulse 95 Oximetry Medical Decision Making - Medical Decision Making Was pt. sent in by a medical professional or institution (, PA, TOOL LATHE OPERATOR, urgent care, hospital, or prison...) When possible be specific @ -No Did you speak to anyone other than the patient for history (EMS, parent, family, police, friend...)? What history was obtained from this source @ -No Did you review nursing and triage notes (agree or disagree)? Why? @ -I reviewed and agree with nursing and triage notes Were old charts reviewed (outside hosp., previous admission, EMS record, old EKG, old radiological studies, urgent care reports/EKG's, prison records)? Report findings @ -No old charts were reviewed Differential Diagnosis (chest pain, altered mental status, abdominal pain women, abdominal pain men, vaginal bleeding, weakness, fever, dyspnea, syncope, headache, dizziness, GI bleed, back pain, seizure, CVA, palpatations, mental health, musculoskeletal)? @ -Cellulitis, abscess, leg infection. This list is not all inclusive. EKG interpreted by me (3pts min.). @ -As above X-rays interpreted by me (1pt min.). @ -Right tib-fib x-ray negative for any obvious evidence of osteomyelitis CT interpreted by me (1pt min.). @ -None done U/S interpreted by me (1pt. min.). @ -Venous duplex ultrasound of the bilateral lower extremities negative for DVT What testing was considered but not performed or refused? (CT, X-rays, U/S, labs)? Why? @ -None What meds were considered but not given or refused? Why? @ -None Did you discuss the management of the patient with other professionals (professionals i.e. , PA, TOOL LATHE OPERATOR, lab, RT, psych nurse, medical social consultant, business banker, teacher, compliance officer, manager rn case)? Give summary @ -Discussed with Dr. Pappas who accepted the admission Was smoking cessation discussed for >3mins.? @ -No Was critical care preformed (if so, how long)? @ -No Were there social determinants of health that impacted care today? How? (Homelessness, low income, unemployed, alcoholism, drug addiction, transportation, low edu. Level, literacy, decrease access to med. care, nursing home, rehab)? @ -No Was there de-escalation of care discussed even if they declined (Discuss DNR or withdrawal of care, Hospice)? DNR status @ -No What co-morbidities impacted this encounter? (DM, HTN, Smoking, COPD, CAD, Cancer, CVA, ARF, Chemo, Hep., AIDS, mental health diagnosis, sleep apnea, morbid obesity)? @ -Chronic lower extremity swelling. Chronically bedbound. Was patient admitted / discharged? Hospital course, mention meds given and route, prescriptions, significant lab abnormalities, going to OR and other pertinent info. @ -Patient presents for evaluation of suspected cellulitis of the right anterior lower extremity. Has chronic lower extremity swelling and chronic lower extremity pain. Is bedbound for numerous years. Sounds from nursing facility. Will obtain venous duplex ultrasound rule out DVT as well as an x-ray to rule out osteomyelitis but basic labs will be obtained. Exam is concerning for cellulitis. Patient will be started on IV vancomycin. Blood culture obtained and sent. No obvious discharge or fluctuance present. No concern for abscess. Vitals are within acceptable limits. She was in agreement this plan. She declines analgesia medications. Laboratory studies returned within acceptable limits. Ultrasound negative for DVT. X-ray negative for osteomyelitis. I did the patient. Patient will be admitted for IV vancomycin therapy and for the cellulitis treatment. She was in agreement this plan. I spoke with the admitting provider, Dr. Pappas who accepted the admission. Undiagnosed new problem with uncertain prognosis? @ -No Drug Therapy requiring intensive monitoring for toxicity (Heparin, Nitro, Insulin, Cardizem)? @ -No Were any procedures done? @ -No Diagnosis/symptom? @ -Right leg cellulitis Acute, or Chronic, or Acute on Chronic? @ -Acute Uncomplicated (without systemic symptoms) or Complicated (systemic symptoms)? @ -Complicated Side effects of treatment? @ -No Exacerbation, Progression, or Severe Exacerbation? @ -No Poses a threat to life or bodily function? How? (Chest pain, USA, CA, pneumonia, PE, COPD, DKA, ARF, appy, cholecystitis, CVA, Diverticulitis, Homicidal, Suicidal, threat to staff... and all critical care pts) @ -Potentially, yes - Lab Data Result diagrams: 03/17/25 13:31 03/17/25 13:31 Lab Results 03/17/25 03/17/25 03/17/25 Range/Units 13:31 13:31 13:31 WBC 6.21 (4.50-10.00) 10*3/uL RBC 3.96 L (4.10-5.20) 10*6/uL Hgb 11.9 L (12.0-15.0) g/dL Hct 35.8 L (37.2-46.3) % MCV 90.4 (80.0-97.0) fL MCH 30.1 (27.0-32.0) pg MCHC 33.2 (32.0-37.0) g/dL Plt Count 255 (140-440) 10*3/uL MPV 10.3 (9.5-12.2) fL Immature Gran % (Auto) 2.3 % Neutrophils % 64.9 % Lymphocytes % 19.6 % Monocytes % 9.7 % Eosinophils % 2.9 % Basophils % 0.6 % Immature Gran # 0.14 H (0.00-0.04) 10*3/uL Neutrophils # 4.03 (1.80-7.70) 10*3/uL Lymphocytes # 1.22 (0.90-5.00) 10*3/uL Monocytes # 0.60 (0.20-1.00) 10*3/uL Eosinophils # 0.18 (0.04-0.35) 10*3/uL Basophils # 0.04 (0.00-0.10) 10*3/uL Sodium 136 L (137-145) mmol/L Potassium 3.9 (3.5-5.1) mmol/L Chloride 104 (98-107) mmol/L Carbon Dioxide 24 (22-30) mmol/L Anion Gap 8 mmol/L BUN 23 H (7-17) mg/dL Creatinine 0.76 (0.52-1.04) mg/dL Est GFR (CKD-EPI)AfAm 82 (>60 ml/min/1.73 sqM) Est GFR (CKD-EPI)NonAf 71 (>60 ml/min/1.73 sqM) Glucose 104 H (74-99) mg/dL Plasma Lactic Acid Handy 0.8 (0.7-2.0) mmol/L Calcium 9.0 (8.4-10.2) mg/dL Total Bilirubin 0.4 (0.2-1.3) mg/dL AST 22 (14-36) U/L ALT <6 (4-34) U/L Alkaline Phosphatase 115 (38-126) U/L NT-Pro-B Natriuret Pep 249 pg/mL Total Protein 6.6 (6.3-8.2) g/dL Albumin 3.3 L (3.5-5.0) g/dL Disposition Clinical Impression: Chronic pain, Cellulitis Disposition: ADMITTED IP TO THIS [facility] Condition: Stable Time of Disposition: 15:50
--- NOTE | 2025-03-17 16:16 | P.HPIM ---
History of Present Illness H&P Date: 03/17/25 Chief Complaint: Leg pain 89-year-old woman, bedbound in assisted living facility, with history of hypertension, chronic low back pain, CVA presented for evaluation of leg pain. Patient says that she has chronic leg pain but her lower extremity started to get significantly worse in terms of pain. It also feels hot to the touch. She has not been ambulating in over 2 years. Otherwise, patient is a poor historian due to agitation. She does deny fevers, chills. However, she does not cooperate with the rest of my interview. In the emergency room, patient was afebrile, 135/77, heart rate 74, 99% on room air. CBC shows anemia down to 11.9. Basic metabolic panel is unremarkable. Liver function tests are unremarkable. BNP is 249. Venous Doppler is negative for DVT. Tibia/fibula x-ray shows diffuse subcutaneous edema. Case was discussed with the emergency room divider and decision was made to admit the patient to the hospital for cellulitis. Review of systems is limited due to patient participation in the interview Gen: In NAD, non-toxic HEENT: normocephalic, atraumatic, hearing acuity is impaired, mucous membranes moist CVS: perfusing all extremities well, bilateral pitting edema, Respiratory: symmetric chest expansion, no accessory muscle use, GI: soft, NTTP, ND, : no suprapubic tenderness, no CVA tenderness MSK/Derm: no rashes, cyanosis, significant erythema of the lateral aspect of the right lower leg Neuro: CN II-XII intact, no motor weakness, Labs and imaging as above Assessment/plan: Cellulitis Lower extremity edema Bedbound -Admit patient to observation - Start vancomycin with low threshold to de-escalate to Augmentin or cefazolin - Likely discharge tomorrow - No need for blood cultures - DVT is negative - tylenol PRN Hypertension Chronic low back pain History of CVA -Home medications pending medication reconciliation Patient is full code DVT prophylaxis with enoxaparin Past Medical History Past Medical History: GERD/Reflux, Hypertension, Osteoarthritis (OA) Additional Past Medical History / Comment(s): gallbladder stones and kidney stones,Chronic sinus problems, limited mobility (wheelchair) unable to walk, basically is bedbound at this time. constant leg pain bulging/herniated discs History of Any Multi-Drug Resistant Organisms: None Reported Past Surgical History: Bladder Surgery, Hernia Repair, Hysterectomy, Orthopedic Surgery Additional Past Surgical History / Comment(s): R leg fracture with surgery/hardware-since removed, R hip fx with ORIF, R knee arthroscopies, abdominal hernia repair, ESS/septoplasty, bladder suspension. Past Anesthesia/Blood Transfusion Reactions: No Reported Reaction Additional Past Anesthesia/Blood Transfusion Reaction / Comment(s): no problems with prior blood transfusion Past Psychological History: No Psychological Hx Reported Smoking Status: Never smoker Past Alcohol Use History: None Reported Past Drug Use History: None Reported - Past Family History Father Family Medical History: COPD Mother Family Medical History: No Reported History Additional Family Medical History / Comment(s): Mother was healthy Medications and Allergies Home Medications Medication Instructions Recorded Confirmed Type amLODIPine [Norvasc] 5 mg PO DAILY 04/16/19 03/17/25 History Aspirin 81 mg PO DAILY #30 tab 08/29/23 03/17/25 Rx Vit C/E/Zn/Coppr/Lutein/Zeaxan 1 cap PO BID 03/17/25 03/17/25 History [Preservision Areds 2 Softgel] Allergies Allergy/AdvReac Type Severity Reaction Status Date / Time Penicillins Allergy Rash/Hives Verified 03/17/25 14:47 Physical Exam Osteopathic Statement: *. No significant issues noted on an osteopathic str uctural exam other than those noted in the History and Physical/Consult. Vitals: Vital Signs Temp Pulse Resp BP Pulse Ox 03/17/25 15:33 72 18 94/63 95 03/17/25 11:52 98.3 F 74 18 135/77 99 Intake and Output 03/17/25 03/17/25 03/17/25 06:59 14:59 22:59 Other: Weight 97.522 kg Results CBC & Chem 7: 03/17/25 13:31 03/17/25 13:31 Labs: Abnormal Lab Results - Last 24 Hours (Table) 03/17/25 03/17/25 Range/Units 13:31 13:31 RBC 3.96 L (4.10-5.20) 10*6/uL Hgb 11.9 L (12.0-15.0) g/dL Hct 35.8 L (37.2-46.3) % Immature Gran # 0.14 H (0.00-0.04) 10*3/uL Sodium 136 L (137-145) mmol/L BUN 23 H (7-17) mg/dL Glucose 104 H (74-99) mg/dL Albumin 3.3 L (3.5-5.0) g/dL
[2025-03-18 04:22] LABS: ALT 6 U/L (4-34); AST 20 U/L (14-36); African American GFR (CKD) >90 (>60 ml/min/1.73 sqM); Albumin/Globulin Ratio 0.9; Alkaline Phosphatase 109 U/L (38-126); Anion Gap 9 mmol/L; Blood Urea Nitrogen 19 mg/dL (7-17); Calcium 8.8 mg/dL (8.4-10.2); Carbon Dioxide 23 mmol/L (22-30); Chloride 104 mmol/L (98-107); Globulin 3.2 g/dL; Glucose 117 mg/dL (74-99); Non-African American GFR(CKD) 80 (>60 ml/min/1.73 sqM); Potassium 3.8 mmol/L (3.5-5.1); Sodium 136 mmol/L (137-145); Total Bilirubin 0.2 mg/dL (0.2-1.3); Total Protein 6.2 g/dL (6.3-8.2)
[2025-03-18 08:18] LABS: Basophils # (A) 0.05 X 10*3/uL (0.00-0.10); Basophils % (A) 0.8 %; Eosinophils # (A) 0.22 X 10*3/uL (0.04-0.35); Eosinophils % (A) 3.5 %; HCT 34.5 % (37.2-46.3); HGB 11.2 g/dL (12.0-15.0); Lymphocytes # (A) 1.51 X 10*3/uL (0.90-5.00); Lymphocytes % (A) 23.9 %; MCH 29.9 pg (27.0-32.0); MCHC 32.5 g/dL (32.0-37.0); MCV 92.2 FL (80.0-97.0); Monocytes # (A) 0.62 X 10*3/uL (0.20-1.00); Monocytes % (A) 9.8 %; NRBC Per 100 WBC 0 X 10*3/uL (0.00-0.01); Neutrophils # (A) 3.77 X 10*3/uL (1.80-7.70); Neutrophils % (A) 59.6 %; Platelet Count 250 X 10*3/uL (140-440); RBC 3.74 X 10*6/uL (4.10-5.20); RDW 13.1 % (11.5-14.5); WBC 6.32 X 10*3/uL (4.50-10.00)
[2025-03-18] MEDS: ENOXAPARIN 40 MG/0.4 ML SYRINGE SQ SCH (09:55)
[2025-03-18] MEDS: ASPIRIN 81 MG PO SCH (09:55)
[2025-03-18] MEDS: amLODIPine 5 MG TAB PO SCH (09:55)
[2025-03-18] MEDS: VANCOMYCIN 1,500 MG in SODIUM CHLORIDE 0.9% 500 ML 500 ML IVPB SCH (09:55)
--- NOTE | 2025-03-18 11:50 | P.DS ---
Providers Date of admission: 03/17/25 16:09 Expected date of discharge: 03/18/25 Attending physician: Stefania Pappas MD Primary care physician: Chase Enriquez [facility] Hospital Course: Discharge Diagnosis: Right lower extremity cellulitis Chronic lower back pain with bilateral lower extremity radiculopathies Chronic lower extremity edema Hypertension History of CVA Bedridden at baseline, multifactorial secondary to chronic lower back pain with bilateral lower extremity radiculopathies and previous CVA. Hospital Course: Patient is a pleasant 89-year-old female with a past medical history of Chronic lower back pain with bilateral lower extremity radiculopathies, chronic lower extremity edema, hypertension, and previous CVA. She presented to our facility on assisted living facility secondary to increasing left lower extremity pain. Upon arrival at our facility, patient underwent evaluation in the emergency department. Vital signs upon arrival show blood pressure 135/77, heart rate 74, respiratory rate 18, temp 98.3 F, and SpO2 of 99% on room air. Bilateral lower extremity Dopplers were completed negative for DVT. X-ray right lower extremity negative for acute fracture showing diffuse subcutaneous edema and moderate osteoarthritic changes of the knee but no osseous erosions to suggest osteomyelitis. Labs were completed and reviewed. CBC showing normocytic anemia with hemoglobin of 11.9. BMP showing sodium 136 and BUN of 23 with blood glucose of 104. Lactic acid was 0.8. Liver profile unremarkable. proBNP was 249. Patient was started on IV antibiotics with vancomycin and admitted to observation unit. Patient monitored overnight having improvement of lower extremity erythema with redness decreasing from previous outlined region. Patient did report chronic uncontrolled bilateral lower extremity pain, discussed recommendations with patient regarding evaluation by pain management physician and offered consult to pain management at this time but patient declined. Patient states she has went that route and will never do that again. Patient encouraged to elevate lower extremities when not in use and order placed for Harsh wrap to be applied to bilateral lower extremities to assist with swelling. Patient remains afebrile and denies any other complaints at this time. Patient received 2 doses of IV antibiotics with vancomycin and being discharged back home to assisted living facility[facility] on Keflex 500 mg every 6 hours for an additional 8 days to total a 10-day treatment course for right lower extremity cellulitis. Patient to follow-up outpatient with PCP in 1 to 2 days Physical Exam: Patient seen and examined at bedside. Vital signs reviewed and stable. General: Nontoxic, no distress and appears stated age. Obese Derm: Skin warm and dry, normal coloration for ethnicity.. Right lower extremity erythema showing improvement from previous outlined region. Head: Atraumatic, normocephalic and symmetric. Eyes: EOM's intact, no lid lag, and anicteric sclera Mouth: no lip lesions, mucus membranes moist Cardiovascular: regular rate and rhythm with normal S1S2, no murmur, positive posterior tibial pulses bilaterally, and cap refill < 2 seconds. Lungs: Respirations even, regular, and unlabored on room air. Lungs CTA bilaterally, no rhonchi, no rales, no wheezing, and no accessory muscle usage. Abdominal: soft, nontender to palpation, no guarding, no appreciable organomegaly Ext: Movement and sensation intact. No gross muscle atrophy, 1-2+ pitting bilateral lower extremity edema, no contractures Neuro: Speech clear, face symmetrical and CN II-XII grossly intact with no noted focal neuro deficits Psych: Alert and oriented to person, place, time, and situation. Appropriate and pleasant affect. A total of 35 minutes of time were spent preparing this complex discharge summary. Pt was discharged on 03/18/2025 at 11:49 AM Patient was seen independently by Nurse Practitioner. This document was prepared using [employer] dictation software. Please allow for errors in advertising editor while rare they do occur. Justin Soto NP rendered care for this patient independently, reviewed the findings and plan as documented in the note above. I did not physically speak with or examine the patient on this date. Patient Condition at Discharge: Stable Plan - Discharge Summary New Discharge Prescriptions: New Cephalexin [Keflex] 500 mg PO Q6HR 8 Days #32 cap Continue amLODIPine [Norvasc] 5 mg PO DAILY Aspirin 81 mg PO DAILY #30 tab Vit C/E/Zn/Coppr/Lutein/Zeaxan [Preservision Areds 2 Softgel] 1 cap PO BID Discharge Medication List amLODIPine [Norvasc] 5 mg PO DAILY 04/16/19 [History] Aspirin 81 mg PO DAILY #30 tab 08/29/23 [Rx] Vit C/E/Zn/Coppr/Lutein/Zeaxan [Preservision Areds 2 Softgel] 1 cap PO BID 03/17/25 [History] Cephalexin [Keflex] 500 mg PO Q6HR 8 Days #32 cap 03/18/25 [Rx] Follow up Appointment(s)/Referral(s): Chase Enriquez MD [Primary Care Provider] - 1-2 days Patient Instructions/Handouts: Cellulitis (GEN), Chronic Pain (DC) Activity/Diet/Wound Care/Special Instructions: Activity: As tolerated. Patient is bedbound at baseline and requires assistance with all transfers. Diet: Heart healthy and carb consistent diet. Avoid salts, or foods with hidden salts such as canned or boxed foods and frozen dinners. Extra salt makes your heart work harder and traps the fluid in your body for longer. Special Instructions: Take all of your medications as directed and remember to keep all of your doctor's appointments and follow-up as needed. Recommend elevation of bilateral lower extremities when not in use and continuation of Harsh wraps to bilateral lower extremities or MENDY hose to assist with reducing swelling. Discussed with patient and strongly recommend outpatient follow-up with pain management for further evaluation of chronic back and bilateral lower extremity pain. Thank you for allowing us to participate in your care, it was truly a pleasure having you for our patient!!! Discharge Disposition: TRANSFER TO SNF/ECF
[2025-03-18 13:46] VITALS: BP 126/78; PULSE 62; RESP 16; TEMP 97.7
[2025-03-18 13:54] VITALS: BMI 36.8
== END 2025-03-18 14:45 ==
LOC: EC 11:50 → 4SSUR 16:09
PROVIDERS: ADMIT Internal Medicine; ATTEND Internal Medicine
DX: L03.115 Cellulitis of right lower limb (principal); R60.0 Localized edema; G89.29 Other chronic pain; M54.50 Low back pain, unspecified; I10 Essential (primary) hypertension; D64.9 Anemia, unspecified; Z74.01 Bed confinement status; Z79.82 Long term (current) use of aspirin; Z79.899 Other long term (current) drug therapy; Z86.73 Personal history of transient ischemic attack (TIA), and cerebral infarction without residual deficits; Z88.0 Allergy status to penicillin
CPT/HCPCS: 96372; 96365; 96366; 99285; 36415; 83880; 80053 ×2; 83605; 85025 ×2; 87040; 73590; 93970; G0378 ×2; J3370 ×2; J1650